=== PATIENT | male | born 1940 | race Caucasian/White ===

== ENCOUNTER 2019-12-08 14:27 | Inpatient (IN) | payer OTHER ==
[2019-12-08 14:56] LABS: Absolute Lymphocytes (CBC) 1.8 K/uL (0.7-4.9); Basophils % 0.8 % (0-1.3); Hematocrit 40.6 % (39.6-49.0); Lymphocytes % 26.2 % (15.3-44.8); MPV 7.9 fL (7.6-11.3); RBC Red Blood Cell Count 4.81 M/uL (4.33-5.43)
--- NOTE | 2019-12-08 15:00 | RAD REPORT ---
EXAM DESCRIPTION: CT - Ct Stroke Brain Wo Cont - 12/08/2019 2:48 pm CLINICAL HISTORY: SLURRED SPEECH Headache, drowsiness COMPARISON: No comparisons TECHNIQUE: All CT scans are performed using dose optimization technique as appropriate and may inclu de automated exposure control or mA/KV adjustment according to patient size. FINDINGS: No intracranial hemorrhage, hydrocephalus or extra-axial fluid collection.Area of diminish ed density is seen in the left posterior temporoparietal region suspicious for subacute infarct. Area of hyperdensity also seen left medial occipital lobe, having the appearance of gliosis from an old i nfarct. The paranasal sinuses and mastoids are clear. The calvarium is intact. Heavy vertebral atherosclerosi s. IMPRESSION: Area of diminished density is seen in the left posterior temporoparietal region suspicio us for subacute infarct. The findings were discussed with Dr. Mirza in the ER On 12/08/2019 at 2:55 p.m. by telephone.
[2019-12-08] MEDS ORDERED: NA CHLORIDE 0.9% 50 ML IV ONE (15:03)
[2019-12-08] MEDS ORDERED: NA CHLORIDE 0.9% 1,000 ML ONE (15:03)
[2019-12-08] MEDS ORDERED: FOLIC ACID 5 MG/ML VIAL ONE (15:03)
[2019-12-08 15:13] LABS: BUN Blood Urea Nitrogen 16 mg/dL (7-18); Bicarbonate 23 mmol/L (21-32); Glucose Level 178 mg/dL (74-106); Potassium 4.8 mmol/L (3.5-5.1); Sodium Level 138 mmol/L (136-145)
[2019-12-08] MEDS ORDERED: ASPIRIN 81 MG CHEWABLE TABLET ONE (15:13)
[2019-12-08 15:16] LABS: Protime INR 1.06
--- NOTE | 2019-12-08 15:16 | ER ---
Nurse's Notes [facility] Name: Omar Norris Age: 79 yrs Sex: Male : 1940 Arrival Date: 12/08/2019 Time: 14:[address] Private MD: Diagnosis: Aphasia following cerebral infarction-subacute;Type 1 diabetes mellitus;Occlusion and stenosis of carotid artery Presentation: 12/07 14:39 Chief complaint: Patient states: Aphasia began at 1300 today. Isn't making sense and ll1 disoriented. Had pacemaker placed 3 weeks ago. + confusion. + weakness since surgery. Coronavirus screen: Proceed with normal triage. Patient denies a cough. Patient denies shortness of breath or difficulty breathing. Patient denies measured and/or subjective temperature greater than 100.4F prior to today's visit. Patient denies travel on a cruise ship or to a country the [facility] currently lists as an affected area. Patient denies contact with known and/or suspected case of COVID-19. Ebola Screen: Patient denies travel to an Ebola-affected area in the 21 days before illness onset. An acute neurological deficit is present. The charge nurse has been notified. The patient has been moved to a treatment area. Initial Sepsis Screen: Does the patient meet any 2 criteria? No. Patient's initial sepsis screen is negative. Risk Assessment: Do you want to hurt yourself or someone else? Patient reports no desire to harm self or others. Onset of symptoms was December 07, 2019 at 23:00. 14:39 Method Of Arrival: Wheelchair ll1 14:39 Acuity: TANIA 2 ll1 14:55 Pre-hospital glucose is not applicable to this patient. Initial Sepsis Screen: Does the vc patient have a suspected source of infection? No. Patient's initial sepsis screen is negative. Triage Assessment: 14:55 The onset of the patients symptoms was at an unknown time. General: Appears in no vc apparent distress. slender, well groomed, Behavior is calm, cooperative, appropriate for age. Stroke Activation: Symptom onset < 3 hours Physician: Stroke Attending; Name: alexandra; Notified At: ; Arrived At: Physician: Chief Stroke Resident; Name: ; Notified At: ; Arrived At: Physician: Stroke Resident; Name: ; Notified At: ; Arrived At: Physician: ED Attending; Name: ; Notified At: ; Arrived At: Physician: ED Resident; Name: ; Notified At: ; Arrived At: Historical: - Allergies: 14:42 No Known Allergies; ll1 - PMHx: 14:42 Hypertension; Diabetes - IDDM; Pacemaker; ll1 - Immunization history:: Adult Immunizations up to date. - Social history:: Patient/guardian denies using street drugs, Smoking status: Patient denies any tobacco usage or history of. - Family history:: not pertinent. Screenin:55 Abuse screen: Denies threats or abuse. Nutritional screening: No deficits noted. vc Tuberculosis screening: No symptoms or risk factors identified. Fall Risk No fall in past 12 months (0 pts). Secondary diagnosis (15 points) dementia, CVA, IV access (20 points). Ambulatory Aid- None/Bed Rest/Nurse Assist (0 pts). Gait- Normal/Bed Rest/Wheelchair (0 pts) Mental Status- Overestimates/Forgets Limitations (15 pts.). Total Gupta Fall Scale indicates High Risk Score (45 or more points). Assessment: 14:55 Reassessment: Dr Mirza at the bedside. 14:55 VAN Scoring: Arm Drift: Minor drift Visual Disturbance: No visual disturbance noted. vc Aphasia: Expressive aphasia noted. Provider notified of +VAN scoring. Neglect: No neglect noted. Patient has been NPO before screening. The patient is alert, and able to follow commands. The patient does not exhibit slurred or garbled speech. The patient is exhibiting difficulty speaking. The patient does not exhibit difficulty understanding words. The patient is able to swallow own secretions with no drooling or need for suction. Patient tolerated one teaspoon of water. No drooling, immediate coughing, gurgling, or clearing of the throat was noted. The patient tolerated 90mL of water. No drooling, immediate coughing, gurgling, or clearing of the throat was noted. The patient passed the bedside swallow screening. Oral medications may be given as ordered. Contact Physician for further diet orders. Provider notified of bedside swallow screening results: Jose Carlos Mirza MD. T-PA (Activase) Screening: Indications: Treatment will start within 4.5 hours onset of symptoms: No. Contraindications: Patient reports onset of signs and symptoms of stroke greater than 6 hours ago: Yes. Reassessment: Patient able to follow one step directions. Unable to follow 2 or more step directions. Pain: Denies pain. Neuro: Level of Consciousness is awake, confused, Oriented to person, Policy Loan Calculator are equal bilaterally. 14:55 Reassessment: After coming back from CT and speaking with family it was found that in ss fact patient was last seen well at 11 pm yesterday evening. 14:55 General: Appears in no apparent distress. slender, well groomed, Behavior is calm, vc cooperative. Neuro: Moves all extremities. Gait is steady, Speech with expressive aphasia noted. Cardiovascular: Denies chest pain, Capillary refill < 3 seconds Patient's skin is warm and dry. Pulses are all present. Rhythm is regular. Respiratory: Airway is patent Respiratory effort is even, unlabored, Respiratory pattern is regular, symmetrical. GI: No signs and/or symptoms were reported involving the gastrointestinal system. : No signs and/or symptoms were reported regarding the genitourinary system. Derm: Skin is intact, is healthy with good turgor, Skin temperature is warm. Musculoskeletal: Circulation, motion, and sensation intact. Range of motion: intact in all extremities. 16:00 Reassessment: Patient appears in no apparent distress at this time. Patient and/or vc family updated on plan of care and expected duration. Pain level reassessed. Patient is alert, oriented x 3, equal unlabored respirations, skin warm/dry/pink. 17:00 Reassessment: Patient appears in no apparent distress at this time. Patient and/or vc family updated on plan of care and expected duration. Pain level reassessed. Patient is alert, oriented x 3, equal unlabored respirations, skin warm/dry/pink. 18:34 Reassessment: Patient appears in no apparent distress at this time. Patient and/or vc family updated on plan of care and expected duration. Pain level reassessed. Patient is alert, oriented x 3, equal unlabored respirations, skin warm/dry/pink. Patient denies pain at this time. 19:33 Reassessment: Patient appears in no apparent distress at this time. Patient and/or vc family updated on plan of care and expected duration. Pain level reassessed. Patient is alert, oriented x 3, equal unlabored respirations, skin warm/dry/pink. Patient denies pain at this time. Patient states symptoms have not improved. 19:34 Reassessment: Called 4th floor to give report, accepting nurse to call me back. vc Vital Signs: 14:39 BP 128 / 87; Pulse 78; Resp 17; Temp 97.7; Pulse Ox 98% ; Pain 0/10; ll1 15:00 BP 150 / 81; Pulse 71; Resp 12; Pulse Ox 97% on R/A; vc 17:00 BP 147 / 74; Pulse 67; Resp 18; Pulse Ox 98% on R/A; vc 18:00 BP 152 / 85; Pulse 70; Resp 15; Pulse Ox 97% on R/A; vc NIH Stroke Scale Scores: 14:55 NIHSS Score: 5 vc 15:38 NIHSS Score: 2 [facility] ED Course: 14:30 Patient arrived in ED. fj1 14:39 Jose Carlos Mirza MD is Attending Physician. tess 14:40 Initial lab(s) drawn, by me, sent to lab. Inserted saline lock: 20 gauge in right jp3 forearm, using aseptic technique. Blood collected. 14:41 Triage completed. ll1 14:42 Arm band placed on Patient placed in an exam room, on a stretcher, on pulse oximetry. ll1 14:48 CT Stroke Brain w/o Contrast In Process Unspecified. EDMS 14:55 Patient has correct armband on for positive identification. Bed in low position. Call vc light in reach. Side rails up X2. Adult w/ patient. library monitor on. Pulse ox on. NIBP on. Sitter at bedside. 15:09 Heather Quiles, RN is Primary Nurse. vc 15:14 Skip De La Paz DO is Hospitalizing Provider. tess 15:27 EKG done, by cable splicing technician. reviewed by Jose Carlos Mirza MD. at1 15:34 Stroke CXR 1 View In Process Unspecified. EDMS 15:38 CT Head Angio In Process Unspecified. EDMS 15:38 CT Neck Angio In Process Unspecified. EDMS 20:30 No provider procedures requiring assistance completed. Patient admitted, IV remains in vc place. Administered Medications: 15:09 Drug: NS 0.9% 1000 ml Route: IV; Rate: 1 bolus; Site: right antecubital; vc 15:09 Drug: foLIC Acid 1 mg Route: IVPB; Site: right antecubital; vc 15:54 Follow up: IV Status: Completed infusion; IV Intake: 50ml vc 15:09 Drug: Aspirin Chewable Tablet 324 mg Route: PO; vc 15:53 Not Given (Other Intervention Used): Zocor 40 mg PO once vc 15:54 Drug: Lipitor 20 mg Route: PO; vc Point of Care Testing: Blood Glucose: 14:40 Blood Glucose: 178 mg/dL; vc Ranges: Intake: 15:54 IV: 50ml; Total: 50ml. vc Outcome: 15:15 Decision to Hospitalize by Provider. tess 20:30 Admitted to Tele accompanied by tech, via stretcher, room 402. vc 20:30 Condition: good 20:30 Instructed on the need for admit. 20:34 Patient left the ED. NIH Stroke Scale - NIH Stroke Score Date: 12/08/2019 Time: 14:55 Total Score = 5 1a. Level of Consciousness (LOC) - 0(Alert) 1b. Level of Consciousness (LOC) (Year \T\ Age) - 1(One) 1c. LOC Commands (Open \T\ Closes Eyes/Wood Floor Layer) - 0(Both) 2. Best Gaze (Lateral Gaze Paresis) - 0(Normal) 3. Visual Field Loss - 0(No visual loss) 4. Facial Palsy - 0(Normal) 5a. Left Arm: Motor (10-second hold) - 0(No drift) 5b. Right Arm: Motor (10-second hold) - 0(No drift) 6a. Left Leg: Motor (5-second hold - always test supine) - 1(Drift) 6b. Right Leg: Motor (5-second hold - always test supine) - 1(Drift) 7. Limb Ataxia (finger/nose \T\ heel/marcano - test with eyes open) - 0(Absent) 8. Sensory Loss (pinprick arms/legs/face) - 0(Normal) 9. Best Language: Aphasia (description/naming/reading) - 1(Mild to moderate aphasia) 10. Dysarthria (speech clarity - read or repeat words) - 1(Mild to Moderate) 11. Extinction and Inattention (visual/tactile/auditory/spatial/personal) - 0(No abnormality) Initials: NIH Stroke Scale - NIH Stroke Score Date: 12/08/2019 Time: 15:38 Total Score = 2 1a. Level of Consciousness (LOC) - 0(Alert) 1b. Level of Consciousness (LOC) (Year \T\ Age) - 0(Both) 1c. LOC Commands (Open \T\ Closes Eyes/Wood Floor Layer) - 0(Both) 2. Best Gaze (Lateral Gaze Paresis) - 0(Normal) 3. Visual Field Loss - 0(No visual loss) 4. Facial Palsy - 0(Normal) 5a. Left Arm: Motor (10-second hold) - 0(No drift) 5b. Right Arm: Motor (10-second hold) - 0(No drift) 6a. Left Leg: Motor (5-second hold - always test supine) - 0(No drift) 6b. Right Leg: Motor (5-second hold - always test supine) - 0(No drift) 7. Limb Ataxia (finger/nose \T\ heel/marcano - test with eyes open) - 0(Absent) 8. Sensory Loss (pinprick arms/legs/face) - 0(Normal) 9. Best Language: Aphasia (description/naming/reading) - 1(Mild to moderate aphasia) 10. Dysarthria (speech clarity - read or repeat words) - 1(Mild to Moderate) 11. Extinction and Inattention (visual/tactile/auditory/spatial/personal) - 0(No abnormality) Initials: [facility] Addendum: 12/14/2019 16:10 Addendum: Other Pt ADMITTED, but patient's son notified by Dr. Mirza of positive COVID results. Some confusion was had by patient's family member as there were two test obtained. Clara Cresencio, Office Service Coordinator notified and stats she has spoke to family to answer any questions. Signatures: Dispatcher [employer] Rupal Moore RN RN sv Anderson, Corey, MD MD cha Smirch, Shelby, RN RN ss Gonzales, Amanda, software programmer EKG Tat1 Roe Espinal jp3 Heather Quiles RN RN vc James, Frank fj1 Alicia Morris RN RN ll1 Corrections: (The following items were deleted from the chart) 12/07 14:58 14:42 EKG completed in triage. Results shown to [facility]. [facility] 14:58 14:42 EKG completed in triage. Results shown to MD. [facility] 18:04 14:39 Onset of symptoms was December 08, 2019 [facility]
--- NOTE | 2019-12-08 15:16 | EDPHYS ---
Physician Documentation [facility] Name: Omar Norris Age: 79 yrs Sex: Male : 1940 Arrival Date: 12/08/2019 Time: 14:[address] Private MD: KYRA Physician Jose Carlos Mirza HPI: 12/07 15:06 This 79 yrs old Unknown Male presents to ER via Wheelchair with complaints of Slurred tess Speech, DISORIENTED. 15:06 The patient presents to the emergency department with weakness of the a speech or tess higher order brain function problem, aphasia. Onset: The symptoms/episode began/occurred today. Context: occurred at home. Associated signs and symptoms: Pertinent positives: This patient does not have any pertinent positives. Severity of symptoms: At their worst the symptoms were moderate in the emergency department the symptoms are unchanged. Patient's baseline: Neuro: alert and fully oriented, Motor: no deficits, Ambulation: walks without assistance, Speech: normal, The patient has a previous history of htn, recent pacemaker 3 weeks ago. Current symptoms: dysphasia. The patient has not experienced similar symptoms in the past. Historical: - Allergies: 14:42 No Known Allergies; ll1 - PMHx: 14:42 Hypertension; Diabetes - IDDM; Pacemaker; ll1 - Immunization history:: Adult Immunizations up to date. - Social history:: Patient/guardian denies using street drugs, Smoking status: Patient denies any tobacco usage or history of. - Family history:: not pertinent. ROS: 15:06 Constitutional: Negative for fever, chills, and weight loss, Eyes: Negative for injury, tess pain, redness, and discharge, ENT: Negative for injury, pain, and discharge, Neck: Negative for injury, pain, and swelling, Cardiovascular: Negative for chest pain, palpitations, and edema, Respiratory: Negative for shortness of breath, cough, wheezing, and pleuritic chest pain, Abdomen/GI: Negative for abdominal pain, nausea, vomiting, diarrhea, and constipation, Back: Negative for injury and pain, : Negative for injury, bleeding, discharge, and swelling, MS/Extremity: Negative for injury and deformity, Skin: Negative for injury, rash, and discoloration, Psych: Negative for depression, anxiety, suicide ideation, homicidal ideation, and hallucinations, Allergy/Immunology: Negative for hives, rash, and allergies, Endocrine: Negative for neck swelling, polydipsia, polyuria, polyphagia, and marked weight changes. 15:06 Neuro: Positive for speech changes. Exam: 15:06 Constitutional: This is a well developed, well nourished patient who is awake, alert, tess and in no acute distress. Head/Face: Normocephalic, atraumatic. Eyes: Pupils equal round and reactive to light, extra-ocular motions intact. Lids and lashes normal. Conjunctiva and sclera are non-icteric and not injected. Cornea within normal limits. Periorbital areas with no swelling, redness, or edema. ENT: Nares patent. No nasal discharge, no septal abnormalities noted. Tympanic membranes are normal and external auditory canals are clear. Oropharynx with no redness, swelling, or masses, exudates, or evidence of obstruction, uvula midline. Mucous membranes moist. Neck: Trachea midline, no thyromegaly or masses palpated, and no cervical lymphadenopathy. Supple, full range of motion without nuchal rigidity, or vertebral point tenderness. No Meningismus. Chest/axilla: Normal chest wall appearance and motion. Nontender with no deformity. No lesions are appreciated. Cardiovascular: Regular rate and rhythm with a normal S1 and S2. No gallops, murmurs, or rubs. Normal PMI, no JVD. No pulse deficits. Respiratory: Lungs have equal breath sounds bilaterally, clear to auscultation and percussion. No rales, rhonchi or wheezes noted. No increased work of breathing, no retractions or nasal flaring. Abdomen/GI: Soft, non-tender, with normal bowel sounds. No distension or tympany. No guarding or rebound. No evidence of tenderness throughout. Back: No spinal tenderness. No costovertebral tenderness. Full range of motion. Male : Normal genitalia with no discharge or lesions. Skin: Warm, dry with normal turgor. Normal color with no rashes, no lesions, and no evidence of cellulitis. MS/ Extremity: Pulses equal, no cyanosis. Neurovascular intact. Full, normal range of motion. Psych: Awake, alert, with orientation to person, place and time. Behavior, mood, and affect are within normal limits. 15:06 Neuro: Orientation: to person, place, Not oriented to time, situation, Mentation: slow to respond, Memory: unable to test, Cranial nerves: grossly normal, is grossly normal based on the patient's age, no acute changes, Cerebellar function: is grossly normal, is grossly normal based on the patient's age, no acute changes, Motor: moves all fours, strength is normal, strength is 5/5 in all extremities, Sensation: no acute changes, Gait: not tested. seizure activity, is not displayed by the patient. 15:38 Neck: ROM/movement: is normal, no acute changes, Meningeal signs: are not present, tess Kernig's sign is negative, Brudzinski's sign is negative. 15:38 Cardiovascular: JVD: is not appreciated. 15:38 ECG was reviewed by the Attending Physician. 15:38 Respiratory: Breath sounds: are clear throughout. 15:46 ECG was reviewed by the Attending Physician. [facility] Vital Signs: 14:39 BP 128 / 87; Pulse 78; Resp 17; Temp 97.7; Pulse Ox 98% ; Pain 0/10; ll1 15:00 BP 150 / 81; Pulse 71; Resp 12; Pulse Ox 97% on R/A; vc 17:00 BP 147 / 74; Pulse 67; Resp 18; Pulse Ox 98% on R/A; vc 18:00 BP 152 / 85; Pulse 70; Resp 15; Pulse Ox 97% on R/A; vc NIH Stroke Scale Scores: 14:55 NIHSS Score: 5 vc 15:38 NIHSS Score: 2 tess MDM: 14:[address] [facility] 15:12 Data reviewed: vital signs, nurses notes, lab test result(s), EKG, radiologic studies, [facility] CT scan, plain films. 15:12 Data interpreted: case monitor: rate is 78 beats/min, rhythm is regular, Pulse tess oximetry: on room air is 98 %. Test interpretation: by ED physician or midlevel provider: ECG, plain radiologic studies. Counseling: I had a detailed discussion with the patient and/or guardian regarding: the historical points, exam findings, and any diagnostic results supporting the discharge/admit diagnosis, lab results, radiology results, the need for further work-up and treatment in the hospital. Physician consultation: Lico Boudreaux MD and will see patient in the er or the room in house. later today. 15:15 ED course: dw dr boudreaux, ct shows sub acute cva, no blood thinners per family, [facility] aspirin , folic acid and neuro consult. 15:20 ED course: no tpa canadidate, 11pm last normal, drs. mckeon and kanika agree. [facility] 12/07 14:40 Order name: Basic Metabolic Panel; Complete Time: 15:17 em 12/07 14:40 Order name: CBC with Diff; Complete Time: 15:17 em 12/07 14:40 Order name: Protime (+inr); Complete Time: 15:32 em1 12/07 14:40 Order name: Ptt, Activated; Complete Time: 15:32 em 12/07 14:40 Order name: CT Stroke Brain w/o Contrast; Complete Time: 15:17 em 12/07 14:54 Order name: Glucose, Ancillary Testing; Complete Time: 15:17 EDFL 12/07 14:40 Order name: Stroke CXR 1 View; Complete Time: 16:50 [facility] 12/07 15:06 Order name: CT Head Angio; Complete Time: 16:50 [facility] 12/07 15:07 Order name: CT Neck Angio; Complete Time: 16:50 em 12/07 14:40 Order name: EKG; Complete Time: 14:40 em 12/07 14:40 Order name: Accucheck; Complete Time: 14:46 em12/07 14:40 Order name: Cardiac monitoring; Complete Time: 15:10 em12/07 14:40 Order name: EKG - Nurse/Tech; Complete Time: 14:46 em 12/07 14:40 Order name: IV Saline Lock; Complete Time: 14:46 12/07 14:40 Order name: Labs collected and sent; Complete Time: 14:46 em12/07 14:40 Order name: NPO; Complete Time: 14:46 em12/07 14:40 Order name: O2 Per Protocol; Complete Time: 14:46 em12/07 14:40 Order name: O2 Sat Monitoring; Complete Time: 14:46 em12/07 14:40 Order name: Stroke Swallow Screen; Complete Time: 15:54 em1 EC:46 Rate is 69 beats/min. Rhythm is regular. QRS [place] is Normal. DC interval is normal. QRS tess interval is normal. QT interval is normal. No Q waves. T waves are Normal. No ST changes noted. Clinical impression: Abnormal EKG without significant change and No evidence of ischemia. Interpreted by me. Reviewed by me. Administered Medications: 15:09 Drug: NS 0.9% 1000 ml Route: IV; Rate: 1 bolus; Site: right antecubital; vc 15:09 Drug: foLIC Acid 1 mg Route: IVPB; Site: right antecubital; vc 15:54 Follow up: IV Status: Completed infusion; IV Intake: 50ml vc 15:09 Drug: Aspirin Chewable Tablet 324 mg Route: PO; vc 15:53 Not Given (Other Intervention Used): Zocor 40 mg PO once vc 15:54 Drug: Lipitor 20 mg Route: PO; vc Point of Care Testing: Blood Glucose: 14:40 Blood Glucose: 178 mg/dL; vc Ranges: Critical Glucose Levels:Adult <50 mg/dl or >400 mg/dl <40 mg/dl or >180 mg/dl Disposition: 12/08/19 15:15 Hospitalization ordered by Skip Mckeon for Inpatient Admission. Preliminary diagnosis are Aphasia following cerebral infarction - subacute, Type 1 diabetes mellitus, Occlusion and stenosis of carotid artery. - Bed requested for Telemetry/MedSurg (Inpatient). - Status is Inpatient Admission. vc - Condition is Fair. - Problem is new. - Symptoms have improved. Critical care time excluding procedures: 15:20 Critical care time: Bedside Care: 25 minutes, Consultation: 10 minutes, Family tess Intervention: 10 minutes. Total time: 45 minutes NIH Stroke Scale - NIH Stroke Score Date: 12/08/2019 Time: 14:55 Total Score = 5 1a. Level of Consciousness (LOC) - 0(Alert) 1b. Level of Consciousness (LOC) (Year \T\ Age) - 1(One) 1c. LOC Commands (Open \T\ Closes Eyes/Clinical Nutritionist) - 0(Both) 2. Best Gaze (Lateral Gaze Paresis) - 0(Normal) 3. Visual Field Loss - 0(No visual loss) 4. Facial Palsy - 0(Normal) 5a. Left Arm: Motor (10-second hold) - 0(No drift) 5b. Right Arm: Motor (10-second hold) - 0(No drift) 6a. Left Leg: Motor (5-second hold - always test supine) - 1(Drift) 6b. Right Leg: Motor (5-second hold - always test supine) - 1(Drift) 7. Limb Ataxia (finger/nose \T\ heel/marcano - test with eyes open) - 0(Absent) 8. Sensory Loss (pinprick arms/legs/face) - 0(Normal) 9. Best Language: Aphasia (description/naming/reading) - 1(Mild to moderate aphasia) 10. Dysarthria (speech clarity - read or repeat words) - 1(Mild to Moderate) 11. Extinction and Inattention (visual/tactile/auditory/spatial/personal) - 0(No abnormality) Initials: NIH Stroke Scale - NIH Stroke Score Date: 12/08/2019 Time: 15:38 Total Score = 2 1a. Level of Consciousness (LOC) - 0(Alert) 1b. Level of Consciousness (LOC) (Year \T\ Age) - 0(Both) 1c. LOC Commands (Open \T\ Closes Eyes/Clinical Nutritionist) - 0(Both) 2. Best Gaze (Lateral Gaze Paresis) - 0(Normal) 3. Visual Field Loss - 0(No visual loss) 4. Facial Palsy - 0(Normal) 5a. Left Arm: Motor (10-second hold) - 0(No drift) 5b. Right Arm: Motor (10-second hold) - 0(No drift) 6a. Left Leg: Motor (5-second hold - always test supine) - 0(No drift) 6b. Right Leg: Motor (5-second hold - always test supine) - 0(No drift) 7. Limb Ataxia (finger/nose \T\ heel/marcano - test with eyes open) - 0(Absent) 8. Sensory Loss (pinprick arms/legs/face) - 0(Normal) 9. Best Language: Aphasia (description/naming/reading) - 1(Mild to moderate aphasia) 10. Dysarthria (speech clarity - read or repeat words) - 1(Mild to Moderate) 11. Extinction and Inattention (visual/tactile/auditory/spatial/personal) - 0(No abnormality) Initials: tess Signatures: Dispatcher [employer] EDMone Curry RN RN kl Anderson, Corey, MD MD cha Martinez, Eric em1 Harish Carmona, COURSE INSTRUCTOR-C COURSE INSTRUCTOR-Cla1 Calcote, Heather, RN RN vc Arturo, Lynsay, RN RN ll1 Corrections: (The following items were deleted from the chart) 15:15 15:15 Hospitalization Ordered by Skip Brain WARD for Inpatient Admission. [facility] Preliminary diagnosis is Aphasia following cerebral infarction - subacute. Bed requested for Telemetry/MedSurg (Inpatient). Status is Inpatient Admission. Condition is Fair. Problem is new. Symptoms have improved. [facility] 15:48 15:38 Rate is 49 beats/min. Rhythm is regular. QRS [place] is Normal. DC interval tess is normal. QRS interval is normal. QT interval is normal. No Q waves. T waves are Normal. No ST changes noted. Clinical impression: Sinus bradycardia and No evidence of ischemia. Interpreted by me. Reviewed by me. [facility] 16:54 15:15 12/08/2019 15:15 [facility] Admission. Preliminary diagnosis is Aphasia following cerebral infarction - subacute; Type 1 diabetes mellitus. Bed requested for Telemetry/MedSurg (Inpatient). Status is Inpatient Admission. Condition is Fair. Problem is new. Symptoms have improved. [facility] 18:08 16:54 12/08/2019 15:15 [facility]. Preliminary diagnosis is Aphasia following cerebral infarction - subacute; Type 1 diabetes mellitus; Occlusion and stenosis of carotid artery. Bed requested for Telemetry/MedSurg (Inpatient). Status is Inpatient Admission. Condition is Fair. Problem is new. Symptoms have improved. [facility] 20:34 18:08 12/08/2019 15:15 [facility]. Preliminary diagnosis is Aphasia following cerebral infarction - subacute; Type 1 diabetes mellitus; Occlusion and stenosis of carotid artery. Bed requested for Telemetry/MedSurg (Inpatient). Status is Inpatient Admission. Condition is Fair. Problem is new. Symptoms have improved.
--- NOTE | 2019-12-08 15:42 | RAD REPORT ---
EXAM DESCRIPTION: RAD - Chest Single View - 12/08/2019 3:34 pm CLINICAL HISTORY: stroke Chest pain. COMPARISON: No comparisons FINDINGS: Portable technique limits examination quality. The lungs are grossly clear. The heart is normal in size. Postsurgical changes of a CABG arm present with dual lead pacer/defibrillator device present. IMPRESSION: No acute intrathoracic process suspected.
--- NOTE | 2019-12-08 15:45 | RAD REPORT ---
EXAM DESCRIPTION: CT - Head angio - 12/08/2019 3:37 pm CLINICAL HISTORY: cva;Aphasia Headache, drowsiness, CVA symptomology COMPARISON: Ct Stroke Brain Wo Cont dated 12/08/2019 TECHNIQUE: CT angiography of the head was performed with MIPs. All CT scans are performed using dose optimization technique as appropriate and may include automated exposure control or mA/KV adjustment according to patient size. FINDINGS: No evidence of aneurysm is detected. No flow-limiting stenosis or vascular malformation id entified. Antegrade flow is seen in the vertebral arteries. Heavy vertebral artery atherosclerosis bilaterally. The visualized dural venous sinuses are patent. IMPRESSION: No significant flow abnormality is detected.
--- NOTE | 2019-12-08 15:47 | RAD REPORT ---
EXAM DESCRIPTION: CT - Neck Angio - 12/08/2019 3:38 pm CLINICAL HISTORY: slurred speech Headache, drowsiness, CVA. COMPARISON: No comparisons TECHNIQUE: CT angiography of the neck vessels was performed with MIPs. All CT scans are performed using dose optimization technique as appropriate and may include automated exposure control or mA/KV adjustment according to patient size. FINDINGS: A left aortic arch is identified with normal three vessel configuration of the great vesse ls. No significant flow abnormality is seen of the common carotid bilaterally. Heavy atheromatous plaquing is seen involving the right carotid bulb resulting in stenosis based on N ASCET criteria of 50-60%. Mild atheromatous plaquing is seen left carotid bulb without significant st enosis. Normal flow is seen within both vertebral arteries. Heavy atherosclerosis of both vertebral arteries. IMPRESSION: Heavy atheromatous plaquing involving the right carotid bulb resulting in stenosis estim ated at 50-60% based on NASCET criteria.
[2019-12-08] MEDS ORDERED: ATORVASTATIN 20 MG TAB ONE (15:54)
[2019-12-08] MEDS ORDERED: ATORVASTATIN 20 MG TAB PO ONE (16:00)
--- NOTE | 2019-12-08 18:14 | P.HP ---
Certification for Inpatient Patient admitted to: Inpatient With expected LOS: >2 Midnights Patient will require the following post-hospital care: Rehabilitation Practitioner: I am a practitioner with admitting privileges, knowledge of patient current condition, hospital course, and medical plan of care. Services: Services provided to patient in accordance with Admission requirements found in Title 42 Section 412.3 of the Code of Federal Regulations <YusufnelaHarish - Last Filed: 12/08/19 18:04> Patient History Date of Service: 12/08/19 Primary Care Provider: THEODORA Reason for admission: CVA History of Present Illness: 79-year-old male, last known well 2300 on 12/07/2019 was reported to be having some expressive aphasia at home by family. His right to the emergency department today around 1440 for evaluation. Patient was worked up in emergency department found to have a subacute left posterior temporoparietal infarct. Patient was expressive aphasia. ED provider wishes to admit for further evaluation and management. When I saw the patient in the emergency department he was awake, alert, son is at bedside. Patient with significant expressive aphasia, moves all 4 extremities, good strength. The patient did pass a swallow screen in the emergency department. Will be admitted for further evaluation management. - Past Medical/Surgical History Has patient received pneumonia vaccine in the past: No Diabetic: Yes -: Hypertension -: Diabetes mellitus type 2-insulin dependent -: Pacemaker insertion- October 2019 Psychosocial/ Personal History: Patient currently lives with his son in their home. - Family History Family History: Reviewed- Non-Contributory - Social History Smoking Status: Former smoker Alcohol use: No CD- Drugs: No Caffeine use: Yes Place of Residence: Home <Harish Carmona - Last Filed: 12/08/19 18:04> Date of Service: 12/08/19 Home medications list reviewed: Yes <Skip De La Paz - Last Filed: 12/08/19 20:44> Review of Systems 10-point ROS is otherwise unremarkable Neurological: Change in Speech, Confusion <Harish Carmona - Last Filed: 12/08/19 18:04> Physical Examination - Physical Exam General: Alert, In no apparent distress, Oriented x3 HEENT: Atraumatic, Normocephalic Neck: Supple Respiratory: Clear to auscultation bilaterally, Normal air movement Cardiovascular: No edema, Regular rate/rhythm, Normal S1 S2 Capillary refill: <2 Seconds Gastrointestinal: Normal bowel sounds, Soft and benign Musculoskeletal: No contractures, No erythema, No tenderness Integumentary: No significant lesion, No tenderness/swelling, No erythema Neurological: Normal strength at 5/5 x4 extr, Normal tone, Sensation intact, Other (Patient with expressive aphasia), Abnormal speech - Studies Laboratory Data (last 24 hrs) 12/08/19 14:40: PT 12.5, INR 1.06, APTT 29.9 12/08/19 14:40: WBC 6.7, Hgb 13.5 L, Hct 40.6, Plt Count 293 12/08/19 14:40: Sodium 138, Potassium 4.8, BUN 16, Creatinine 0.81, Glucose 178 H <Harish Carmona - Last Filed: 12/08/19 18:04> - Studies Laboratory Data (last 24 hrs) 12/08/19 14:40: PT 12.5, INR 1.06, APTT 29.9 12/08/19 14:40: WBC 6.7, Hgb 13.5 L, Hct 40.6, Plt Count 293 12/08/19 14:40: Sodium 138, Potassium 4.8, BUN 16, Creatinine 0.81, Glucose 178 H <Skip De La Paz - Last Filed: 12/08/19 20:44> Assessment and Plan - Plan Assessment 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 Have ordered echocardiogram, ultrasound of the carotids. Neurology has been consulted. Speech and physical therapy consults in place. Anticipate clinical improvement next 48-72 hr, patient may benefit from rehabilitation prior to discharge. Appreciate further input from neurology. Diabetes mellitus type 2-insulin dependent: A.c. HS Accu-Cheks therapy in place. Will check A1c with morning labs. Hypertension: Obtain and continue patient's home medications. Discharge Plan: Other (Rehab) Plan to discharge in: 48 Hours - Advance Directives Does patient have a Living Will: No Does patient have a Durable POA for Healthcare: No - Code Status/Comfort Care Code Status Assessed: Yes (Patient is full code) Critical Care: No Time Spent Managing Pts Care (In Minutes): 55 <Harish Carmona - Last Filed: 12/08/19 18:04> - Plan Agree with FINAL TESTER. Discussed evaluation, assessment and plan of care for the patient with FINAL TESTER. Will start ASA, Plavix, folic acid and statin. Will start DVT prophylaxis as well. Will discuss with Dr. Chavis tomorrow. May need Rehab at discharge. Expressive aphasia secondary to Subacute Left posterior temporoparietal CVA DM Type 2 insulin dependent HTN Pacemaker Will reassess in the am. <Skip De La Paz - Last Filed: 12/08/19 20:44>
[2019-12-08] MEDS ORDERED: ONDANSETRON 4 MG/2 ML VIAL IV PRN (20:47)
[2019-12-08] MEDS ORDERED: INSULIN -REGULAR HUMAN 50 UNIT/0.5 ML ML SQ SCH (20:47)
[2019-12-08] MEDS ORDERED: ACETAMINOPHEN 500 MG TAB PO PRN (20:47)
[2019-12-08] MEDS: NA CHLORIDE 0.9% 1,000 ML IV SCH (22:50)
[2019-12-08] MEDS: ATORVASTATIN 20 MG TAB PO SCH (22:50)
[2019-12-09] MEDS ORDERED: GLUCAGON 1 MG/VIAL IM PRN (00:08)
[2019-12-09] MEDS ORDERED: D50W 25 GM/50 ML SYRINGE/VIAL IV PRN (00:08)
[2019-12-09 00:59] VITALS: BMI 24.0
[2019-12-09] MEDS: MELATONIN 5 MG TABLET PO SCH ×2 (01:34→20:39)
[2019-12-09 04:48] LABS: Absolute Lymphocytes (CBC) 1.6 K/uL (0.7-4.9); Basophils % 0.8 % (0-1.3); Hematocrit 34.6 % (39.6-49.0); Lymphocytes % 32.2 % (15.3-44.8); MPV 7.7 fL (7.6-11.3); RBC Red Blood Cell Count 4.14 M/uL (4.33-5.43)
[2019-12-09 04:53] LABS: Potassium 4.1 mmol/L (3.5-5.1); T4,Total 8.2 ug/dL (4.5-12.1)
[2019-12-09 04:57] LABS: Thyroid Stimulating Hormone 4.23 uIU/mL (0.360-3.740)
[2019-12-09] MEDS: INSULIN -REGULAR HUMAN 50 UNIT/0.5 ML ML SQ SCH ×4 (07:30→20:40)
[2019-12-09] MEDS: ASPIRIN EC 81 MG TAB PO SCH (08:33)
[2019-12-09] MEDS: FOLIC ACID 1 MG TABLET PO SCH (08:33)
[2019-12-09] MEDS: CLOPIDOGREL 75 MG TABLET PO SCH (08:33)
[2019-12-09] MEDS: NA CHLORIDE 0.9% 1,000 ML IV SCH (10:27)
--- NOTE | 2019-12-09 12:11 | EKG ---
Test Date: 2019-12-08 Test Time: 15:03:15 Glass Curvature Gauger: MINERVA MEASUREMENT RESULTS: Intervals: Rate: 69 CA: 150 QRSD: 86 QT: 356 QTc: 381 [place]: P: -4 CA: 150 QRS: 60 T: 67 INTERPRETIVE STATEMENTS: Electronic atrial pacemaker Possible Anterior infarct, age undetermined Abnormal ECG No previous ECG available for comparison Electronically Signed On 12-09-19 12:09:32 CDT by Reinier Harper
--- NOTE | 2019-12-09 15:48 | P.PN ---
Subjective Date of Service: 12/09/19 Primary Care Provider: THEODORA Chief Complaint: CVA Subjective: No new changes, Tolerating diet (Continues with expressive aphasia.), Doing well Review of Systems General: Unremarkable Eyes: Unremarkable ENT: Other (Has difficulty hearing, uses hearing aid), Unremarkable Respiratory: Unremarkable Cardiovascular: Unremarkable Gastrointestinal: Unremarkable Musculoskeletal: Unremarkable Integumentary: Unremarkable Neurological: Change in Speech (Continues with expressive aphasia) Physical Examination - Vital Signs Temperature: 97.8 F Blood Pressure: 125/72 Pulse: 76 Respirations: 18 Pulse Ox (%): 99 - Physical Exam General: Alert, In no apparent distress, Oriented x3 HEENT: Atraumatic, Normocephalic, PERRLA, Other (Difficulty hearing, uses hearing aids.) Neck: Supple, Other (Trachea midline) Respiratory: Clear to auscultation bilaterally, Normal air movement Cardiovascular: No edema, Normal pulses, Regular rate/rhythm, Normal S1 S2 Capillary refill: <2 Seconds Gastrointestinal: Normal bowel sounds, Soft and benign, Non-distended Musculoskeletal: No clubbing, No swelling, No contractures, No erythema Integumentary: No rashes, No breakdown, No significant lesion Neurological: Normal gait, Normal strength at 5/5 x4 extr, Normal tone, Abnormal speech (Expressive aphasia) Assessment And Plan - Plan Assessment Subacute left posterior temporoparietal infarct with noticeable expressive aphasia: Diabetes mellitus type 2-insulin dependent: Hypertension: Plan Subacute left posterior temporoparietal infarct with no residual expressive aphasia: Continue aspirin, Plavix, folic acid. Echocardiogram ordered with results pending, MRA of the neck shows bilateral plaque with estimated stenosis of 50-60%. MRA of the head shows no acute abnormalities. Neurology has been consulted. Patient to have reimaging CT scan of the head this afternoon at 3:00 p.m.. Patient has pacemaker in place and cannot tolerate MRI of the brain. Patient continues with expressive aphasia. Speech and physical therapy consults in place. Patient may have some clinical improvement next 48-72 hr and may benefit from rehabilitation prior to discharge. Appreciate further input from neurology. Diabetes mellitus type 2-insulin dependent: A.c. HS Accu-Cheks therapy in place. Will check A1c with morning labs. Hypertension: Blood pressures remained stable. Latest reading of 125/75. So far is not required blood pressure medication. Continue patient's home medications once verified. Discharge Plan: Other (Rehab) Plan to discharge in: 48 Hours Discharge Plan: Correction Plan to discharge in: 48 Hours - Code Status/Comfort Care Code Status Assessed: Yes Time Spent Managing PTS Care (In Minutes): 45
--- NOTE | 2019-12-09 16:15 | RAD REPORT ---
EXAM DESCRIPTION: CT - Head Brain Wo Cont - 12/09/2019 4:03 pm CLINICAL HISTORY: cva COMPARISON: December 08, 2019 TECHNIQUE: Computed axial tomography of the head was obtained. IV contrast was not requested. All CT scans are performed using dose optimization technique as appropriate and may include automated exposure control or mA/KV adjustment according to patient size. FINDINGS: An intracranial bleed is not seen . The ventricles are normal in caliber. No extra-axial fluid collection is noted. Moderate low-density areas within the left occipital, left temporal left parietal lobes have become m ore well-defined since the prior exam. Fluid within the sinuses/ mastoids is not seen. IMPRESSION: Moderate relatively acute infarction involving left occipital, left temporal and left pa rietal lobes
--- NOTE | 2019-12-09 16:53 | RAD REPORT ---
EXAM DESCRIPTION: USCarotid Artery Bilateral12/09/2019 4:30 pm CLINICAL HISTORY: cva COMPARISON: None FINDINGS: The velocity of the right internal carotid artery equals 93 cm/sec. The right ICA/CCA rati o 1. The velocity of the left internal carotid artery equals 72 cm/sec. The left ICA/CCA ratio .9 Mild to moderate calcified plaque right carotid bulb. Mild plaque left internal carotid artery The vertebral arteries demonstrate antegrade flow IMPRESSION: Mild tomato plaque within the right carotid bulb without evidence of a hemodynamically s ignificant stenosis NASCET criteria used. Mild 0-49% stenosis Moderate 50-69% stenosis Severe 70-99% stenosis
--- NOTE | 2019-12-09 17:05 | CON ---
Reason For Consultation: Consultation called because os stroke. History Of Present Illness: Mr. Norris is a 79-year-old right-handed patient with hypertensi on, diabetes mellitus, and a recently inserted cardiac pacemaker in October of this year, who comes in w ith expressive aphasia. He was last known to be well around 2300 hours on 12/07/2019, he then develo ped difficulty communicating that is both comprehension and expression. At [facility], he h ad a brain CT scan done at on 12/08/2019 at 2:48 p.m. and it identified an area of diminished density in the left posterior temporoparietal region, suspicion of a subacute infarct. Given his recent pac emaker placement, the patient was not a candidate for MRI in this facility. He has CT angiogram of t he head revealing no significant flow abnormalities, however, CT angiogram of the neck identified hea vy atheromatous thrombus plaque in the right carotid bulb resulting in stenosis estimated at 56% base d on NASCET criteria. There was no significant left-sided carotid stenosis and note, this is contral ateral to where the patient's deficit is in terms of the blockage and the carotid versus the brain CT findings. His electrocardiogram showed an electronic paced rhythm with possible anterior infarct, a ge undetermined, and a chest x-ray showed no acute intrathoracic abnormalities. Complete blood count with differential was essentially normal. Coagulation panel was normal and chemistries essentially unremarkable. Blood glucose ranged from 128 to 228. Calcium initially was normal at 8.9, after hydr ation low at 8.4. LDL cholesterol 103, HDL cholesterol 53, cholesterol to HDL ratio of 3.3. TSH sli ghtly elevated at 4.23. Free T4 and thyroxine T4 both normal. Past Medical History: As indicated. Social History: No alcohol, tobacco, or IV drug use. Did smoke in the past. He lives with his son. Family History: Noncontributory. Review of Systems: Aside from mentioned above, which included difficulty with communication, disorientation, problems wi th expression and comprehension, he had no recent fevers, chills, nausea, vomiting, myalgias, arthral gias, headache, weight change, psychiatric complaints, gastrointestinal, genitourinary, dermatologica l or respiratory issues. Physical Examination: Vital Signs: Blood pressure 110/76, pulse 77, respiratory rate 16, temperature 98.3, oxygen saturati on 97% on room air. Weight 149 pounds, height 5 feet 6 inches, BMI 24. General: Mr. Norris is sitting in his room, eating lunch. He is in no acute distress. HEENT: He is normocephalic, atraumatic. Sclerae anicteric. Oropharynx is moist and pink. Neck: Supple. Chest: Clear. Heart: Regular. Extremities: Show no edema, cyanosis, or clubbing. Neurological: He is alert and oriented to situation, place, and person. He is hard of hearing. He does follow commands appropriately and that is finding of his cranial nerve. Aside from that, crania l nerves are intact. His ability to repeat is slightly impaired. He had difficulty repeating the ph rase no, ifs, ands, or buts and saying [employer], however, his articulation was normal i n terms of the lingual, labial and guttural sounds. Otherwise, cranial nerves, again poor hearing bi laterally. Does have hearing aids in the right ear. Tongue and palate are midline and facial sensat ion intact bilaterally. His strength is intact in upper and lower extremities at 5/5. Coordination intact in upper and lower extremities. Sensation, stocking-glove loss to light touch and temperature . Reflexes, depressed, 1 to trace in upper and lower extremities and symmetric. Gait, good stance a nd stride gait. Assessment: Mr. Norris is a 79-year-old patient with a subacute stroke per CT scan in the left posteri or parietal-temporal junction which has produced some perhaps receptive and less so expressive aphasi a. He does not have motor or sensory deficits, coordination deficits. He does have stroke risk fact ors including hypertension and he does have a history of tobacco use and a history of pulmonary embol ism. He has some mild hypercalcemia. Plan: 1.Aspirin, Plavix and folic acid as indicated. Continue DVT prophylaxis while in hospital. 2.Lipitor 40 mg at bedtime and melatonin as needed at night for sleep. 3.Please note, his NIH Stroke Scale is 2. 4.After discharge, he should follow up in Dr. Chavis's office 1 month later. LUZ MARINA/DARIAN Voice ID: [id number] Report ID: [id number]
[2019-12-09] MEDS: ATORVASTATIN 20 MG TAB PO SCH (20:39)
[2019-12-10] MEDS: NA CHLORIDE 0.9% 1,000 ML IV SCH (00:24)
[2019-12-10 04:18] LABS: Absolute Lymphocytes (CBC) 1.8 K/uL (0.7-4.9); Hematocrit 34.7 % (39.6-49.0); Lymphocytes % 31.5 % (15.3-44.8); MPV 7.9 fL (7.6-11.3); RBC Red Blood Cell Count 4.13 M/uL (4.33-5.43)
[2019-12-10 04:37] LABS: Potassium 4.2 mmol/L (3.5-5.1)
[2019-12-10] MEDS: INSULIN -REGULAR HUMAN 50 UNIT/0.5 ML ML SQ SCH ×4 (07:30→20:51)
[2019-12-10] MEDS: ASPIRIN EC 81 MG TAB PO SCH (08:52)
[2019-12-10] MEDS: FOLIC ACID 1 MG TABLET PO SCH (08:53)
[2019-12-10] MEDS: CLOPIDOGREL 75 MG TABLET PO SCH (08:53)
--- NOTE | 2019-12-10 11:55 | P.PN ---
Subjective Date of Service: 12/10/19 Primary Care Provider: THEODORA Chief Complaint: CVA Subjective: No new changes, Doing well <Trace Nielsen - Last Filed: 12/10/19 12:07> Date of Service: 12/10/19 <DarshanSkip avalos - Last Filed: 12/10/19 14:48> Review of Systems General: Unremarkable Eyes: Unremarkable ENT: Unremarkable Respiratory: Unremarkable Cardiovascular: Unremarkable Gastrointestinal: Unremarkable Genitourinary: Unremarkable Musculoskeletal: Unremarkable Integumentary: Unremarkable Neurological: As per HPI <Trace Nielsen - Last Filed: 12/10/19 12:07> Physical Examination - Vital Signs Temperature: 98.1 F Blood Pressure: 146/87 Pulse: 70 Respirations: 16 Pulse Ox (%): 98 - Physical Exam General: Alert, In no apparent distress, Oriented x3 HEENT: Atraumatic, Normocephalic Neck: Supple, No Thyromegaly Respiratory: Clear to auscultation bilaterally, Normal air movement Cardiovascular: No edema, Normal pulses, Regular rate/rhythm Capillary refill: <2 Seconds Gastrointestinal: Normal bowel sounds, Soft and benign, Non-distended Musculoskeletal: No clubbing, No swelling, No contractures Integumentary: No rashes, No breakdown, No significant lesion, No tenderness/swelling Neurological: Normal gait, Normal strength at 5/5 x4 extr, Normal tone, Abnormal speech (Expressive aphasia) <Trace Nielsen - Last Filed: 12/10/19 12:07> Assessment And Plan - Plan Assessment 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 Continue aspirin, Plavix, folic acid. Echocardiogram ordered with results pending, MRA of the neck shows bilateral plaque with estimated stenosis of 50-60%. MRA of the head shows no acute abnormalities. Carotid Doppler shows [id number] plaquing on the right carotid bulb and mild plaque on the left internal carotid artery. Neurology has been consulted. Patient reimaging CT scan of the head shows Moderate relatively acute infarction involving left occipital, left temporal and left parietal lobes . Patient has pacemaker in place and cannot tolerate MRI of the brain. Patient continues with expressive aphasia. Speech and physical therapy consults in place. Patient may have some clinical improvement next 48-72 hr and may benefit from rehabilitation prior to discharge. Appreciate further input from neurology. Diabetes mellitus type 2-insulin dependent: Mitul.cAntoinette OSULLIVAN Accu-Cheks therapy in place. Hemoglobin A1c of 8.9. Hypertension: Blood pressures remained stable. Latest reading of 125/75. So far is not required blood pressure medication. Continue patient's home medications once verified. Discharge Plan: Other (Rehab) Plan to discharge in: 48 Hours. logistic manager working on placement to snf. Discharge Plan: [facility] Plan to discharge in: 48 Hours - Code Status/Comfort Care Code Status Assessed: Yes Time Spent Managing PTS Care (In Minutes): 45 <Trace Nielsen - Last Filed: 12/10/19 12:07> - Plan Case discussed at length with PA. Agree with evaluation, assessment and plan of care. Continued current medication. Social work working to place patient at skilled facility then transition to long-term care. Continue OT, PT and ST. <Skip De La Paz - Last Filed: 12/10/19 14:48>
[2019-12-10] MEDS: HALOPERIDOL LACT 5 MG/ML INJ IV PRN ×2 (13:58→20:27)
[2019-12-10] MEDS: ATORVASTATIN 20 MG TAB PO SCH (20:27)
[2019-12-10] MEDS: MELATONIN 5 MG TABLET PO SCH (20:28)
[2019-12-11 05:25] LABS: Absolute Lymphocytes (CBC) 1.9 K/uL (0.7-4.9); Basophils % 1.1 % (0-1.3); Hematocrit 37.2 % (39.6-49.0); Lymphocytes % 29.6 % (15.3-44.8); MPV 8.1 fL (7.6-11.3); RBC Red Blood Cell Count 4.42 M/uL (4.33-5.43)
[2019-12-11 05:37] LABS: BUN Blood Urea Nitrogen 12 mg/dL (7-18); Bicarbonate 23 mmol/L (21-32); Glucose Level 154 mg/dL (74-106); Magnesium 1.7 mg/dL (1.8-2.4); Potassium 4.2 mmol/L (3.5-5.1); Sodium Level 141 mmol/L (136-145)
[2019-12-11] MEDS ORDERED: MAGNESIUM SULFATE 1 gm IVPB 1 GM/100 ML BAG IV ONE (07:15)
[2019-12-11] MEDS: INSULIN -REGULAR HUMAN 50 UNIT/0.5 ML ML SQ SCH ×4 (07:30→20:10)
--- NOTE | 2019-12-11 08:42 | ECHO ---
HEIGHT: 5 ft 6 in WEIGHT: 149 lb 0 oz DATE OF STUDY: 12/10/[address]: Harish Carmona NP 2-DIMENSIONAL: YES M.MODE: YES DOPPLER: YES COLOR FLOW: YES TDS: YES PORTABLE: NO DEFINITY: NO BUBBLE STUDY: NO DIAGNOSIS: STROKE CARDIAC HISTORY: CATHERIZATION: YES SURGERY: YES PROSTHETIC VALVE: NO PACEMAKER: YES MEASUREMENTS (cm) DIASTOLIC (NORMALS) SYSTOLIC (NORMALS) IVSd 0.9 (0.6-1.2) LA Diam 3.4 (1.9-4.0) LVEF 42% LVIDd 5.4 (3.5-5.7) LVIDs 4.3 (2.0-3.5) %FS 21% LVPWd 1.0 (0.6-1.2) Ao Diam 2.9 (2.0-3.7) 2 DIMENSIONAL ASSESSMENT: RIGHT ATRIUM: NORMAL LEFT ATRIUM: NORMAL RIGHT VENTRICLE: NORMAL LEFT VENTRICLE: NORMAL TRICUSPID VALVE: NORMAL MITRAL VALVE: MITRAL ANNULAR CALCIFICATION PULMONIC VALVE: NORMAL AORTIC VALVE: NORMAL PERICARDIAL EFFUSION: NONE AORTIC ROOT: NORMAL LEFT VENTRICULAR WALL MOTION: MILD GLOBAL HYPOKINESIS. DOPPLER/COLOR FLOW: NORMAL COMMENTS: MILD GLOBAL HYPOKINESIS. LEFT VENTRICULAR EJECTION FRACTION 40-45%. MITRAL ANNULAR CALCIFICATION. NO EFFUSION. TECHNOLOGIST: Alfredo CHÁVEZ
[2019-12-11] MEDS: FOLIC ACID 1 MG TABLET PO SCH (09:08)
[2019-12-11] MEDS: ASPIRIN EC 81 MG TAB PO SCH (09:09)
[2019-12-11] MEDS: CITALOPRAM 10 MG TABLET PO SCH (09:09)
[2019-12-11] MEDS: FINASTERIDE 5 MG TAB PO SCH (09:09)
[2019-12-11] MEDS: CLOPIDOGREL 75 MG TABLET PO SCH (09:09)
[2019-12-11] MEDS: lisinopriL 5 MG TAB PO SCH (09:09)
--- NOTE | 2019-12-11 15:29 | P.PN ---
Subjective Date of Service: 12/11/19 Primary Care Provider: THEODORA Chief Complaint: CVA Subjective: Doing well Physical Examination - Vital Signs Temperature: 98.2 F Blood Pressure: 157/81 Pulse: 73 Respirations: 18 Pulse Ox (%): 97 - Physical Exam General: Alert, In no apparent distress, Cooperative HEENT: Atraumatic Neck: Supple Respiratory: Clear to auscultation bilaterally Cardiovascular: Normal pulses, Regular rate/rhythm Gastrointestinal: Normal bowel sounds Neurological: Normal speech, Normal strength at 5/5 x4 extr, Normal tone, Normal affect Assessment & Plan Discharge Plan: Other (SNF) Plan to discharge in: 24 Hours Physician Review Additional Text: Assessment 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 Patient was agitated last night. Son was able to be present. Home medications reviewed. Will restart medication including Risperdal. Continue aspirin, Plavix, folic acid. Still waiting transfer to skilled placement. Will need to have COVID test finalize. Once this is done then will proceed with placement. Continue physical, occupational and speech therapy. Overall stable. Will continue to monitor for agitation. anticipate discharge within the next 24 hr. I will turn the service over to the hospitalist team tomorrow. I will go over the plan of care with him. Diabetes mellitus type 2-insulin dependent: Hemoglobin A1c of 8.9. Will continue to adjust Lantus for better control. Hypertension: Blood pressures remained stable. Patient on lisinopril. Parameters placed. Latest reading of 125/75. So far is not required blood pressure medication. Continue patient's home medications once verified. Depression with anxiety: Restart home medication BPH: Continue home medication Time Spent Managing Pts Care (In Minutes): 55
[2019-12-11] MEDS: ENOXAPARIN 40 MG/0.4 ML SQ SCH (17:47)
[2019-12-11] MEDS: ATORVASTATIN 20 MG TAB PO SCH (20:11)
[2019-12-11] MEDS: RISPERIDONE 1 MG TABLET PO SCH (20:11)
[2019-12-11] MEDS: MELATONIN 5 MG TABLET PO SCH (20:12)
[2019-12-11] MEDS: INSULIN GLARGINE 100 UNITS/ML SQ SCH (20:12)
[2019-12-12] MEDS: INSULIN -REGULAR HUMAN 50 UNIT/0.5 ML ML SQ SCH ×4 (07:30→20:52)
[2019-12-12] MEDS: FOLIC ACID 1 MG TABLET PO SCH (08:29)
[2019-12-12] MEDS: ASPIRIN EC 81 MG TAB PO SCH (08:29)
[2019-12-12] MEDS: lisinopriL 5 MG TAB PO SCH (08:29)
[2019-12-12] MEDS: CLOPIDOGREL 75 MG TABLET PO SCH (08:29)
[2019-12-12] MEDS: CITALOPRAM 10 MG TABLET PO SCH (08:30)
[2019-12-12] MEDS: FINASTERIDE 5 MG TAB PO SCH (08:30)
--- NOTE | 2019-12-12 11:15 | P.PN ---
Subjective Date of Service: 12/12/19 Primary Care Provider: THEODORA Chief Complaint: CVA Subjective: No new changes, Doing well <GtmilenaTrace edmonds - Last Filed: 12/12/19 11:20> Date of Service: 12/12/19 <ChinchillaGelacio - Last Filed: 12/12/19 14:06> Review of Systems General: As per HPI Eyes: Unremarkable ENT: Unremarkable Respiratory: Unremarkable Cardiovascular: Unremarkable Gastrointestinal: Unremarkable Genitourinary: Unremarkable Musculoskeletal: Unremarkable Neurological: Unremarkable <GtmilenaTrace edmonds - Last Filed: 12/12/19 11:20> Physical Examination - Vital Signs Temperature: 97.0 F Blood Pressure: 135/73 Pulse: 62 Respirations: 16 Pulse Ox (%): 96 - Physical Exam General: Alert, In no apparent distress, Oriented x3, Cooperative HEENT: Atraumatic, Normocephalic, PERRLA Neck: Supple, No Thyromegaly Respiratory: Clear to auscultation bilaterally, Normal air movement Cardiovascular: No edema, Normal pulses, Regular rate/rhythm, Normal S1 S2 Capillary refill: <2 Seconds Gastrointestinal: Normal bowel sounds, Soft and benign, Non-distended, No tenderness Musculoskeletal: No clubbing, No swelling, No contractures, No erythema Integumentary: No rashes, No breakdown, No significant lesion Neurological: Normal gait, Normal speech, Normal strength at 5/5 x4 extr, Normal tone Other Physical/Emotional Findings: Calm and cooperative today. 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 Patient was agitated last night but today patient is calm and cooperative. No family bedside. Home medications reviewed. Continue Risperdal. Continue aspirin, Plavix, folic acid. Still waiting transfer to skilled placement. Will need to have COVID test finalize, no results so far. Once this is done then will proceed with placement. Continue physical, occupational and speech therapy. Overall stable. Will continue to monitor for agitation. Anticipate discharge within the next 24 hr. Diabetes mellitus type 2-insulin dependent: Hemoglobin A1c of 8.9. Will continue to adjust Lantus for better control. Blood glucose of 132 this morning. Improved. Hypertension: Blood pressures remained stable. Patient on lisinopril. Parameters placed. Latest reading of 135/73. So far is not required blood pressure medication. Continue patient's home medications once verified. Depression with anxiety: Restart home medication. Calm and cooperative. 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 Patient was agitated last night. Son was able to be present. Home medications reviewed. Will restart medication including Risperdal. Continue aspirin, Plavix, folic acid. Still waiting transfer to skilled placement. Will need to have COVID test finalize. Once this is done then will proceed with placement. Continue physical, occupational and speech therapy. Overall stable. Will continue to monitor for agitation. anticipate discharge within the next 24 hr. I will turn the service over to the hospitalist team tomorrow. I will go over the plan of care with him. Diabetes mellitus type 2-insulin dependent: Hemoglobin A1c of 8.9. Will continue to adjust Lantus for better control. Hypertension: Blood pressures remained stable. Patient on lisinopril. Parameters placed. Latest reading of 125/75. So far is not required blood pressure medication. Continue patient's home medications once verified. Depression with anxiety: Restart home medication BPH: Continue home medication Time Spent Managing PTS Care (In Minutes): 45 <Trace Nielsen - Last Filed: 12/12/19 11:20> Physician Review Additional Text: Patient was seen and examined and findings were discussed with SONAM Agree with the assessment and plan as documented by SONAM <Gelacio Chinchilla - Last Filed: 12/12/19 14:06>
[2019-12-12] MEDS: ENOXAPARIN 40 MG/0.4 ML SQ SCH (16:14)
[2019-12-12] MEDS: ATORVASTATIN 20 MG TAB PO SCH (20:50)
[2019-12-12] MEDS: MELATONIN 5 MG TABLET PO SCH (20:50)
[2019-12-12] MEDS: INSULIN GLARGINE 100 UNITS/ML SQ SCH (20:50)
[2019-12-12] MEDS: RISPERIDONE 1 MG TABLET PO SCH (20:54)
[2019-12-13] MEDS: CLOPIDOGREL 75 MG TABLET PO SCH (08:35)
[2019-12-13] MEDS: ASPIRIN EC 81 MG TAB PO SCH (08:35)
[2019-12-13] MEDS: INSULIN -REGULAR HUMAN 50 UNIT/0.5 ML ML SQ SCH ×2 (08:36→12:20)
[2019-12-13] MEDS: CITALOPRAM 10 MG TABLET PO SCH (08:36)
[2019-12-13] MEDS: FOLIC ACID 1 MG TABLET PO SCH (08:36)
[2019-12-13] MEDS: FINASTERIDE 5 MG TAB PO SCH (08:36)
[2019-12-13] MEDS: lisinopriL 5 MG TAB PO SCH (08:36)
--- NOTE | 2019-12-13 09:49 | P.PN ---
Subjective Date of Service: 12/13/19 Primary Care Provider: THEODORA Chief Complaint: CVA Subjective: Tolerating diet, Doing well <Trace Nielsen - Last Filed: 12/13/19 09:52> Date of Service: 12/13/19 <AmorGelacio - Last Filed: 12/13/19 11:54> Review of Systems 10-point ROS is otherwise unremarkable <Trace Nielsen - Last Filed: 12/13/19 09:52> Physical Examination - Vital Signs Temperature: 97.7 F Blood Pressure: 133/96 Pulse: 70 Respirations: 18 Pulse Ox (%): 98 - Physical Exam General: Alert, In no apparent distress, Oriented x3 HEENT: Atraumatic, Normocephalic, PERRLA Neck: Supple, No Thyromegaly Respiratory: Clear to auscultation bilaterally, Normal air movement Cardiovascular: No edema, Normal pulses Capillary refill: <2 Seconds Gastrointestinal: Soft and benign, Non-distended Musculoskeletal: No clubbing, No swelling, No contractures, No warmth Integumentary: No rashes, No erythema, No warmth Neurological: Normal strength at 5/5 x4 extr, Normal tone Other Physical/Emotional Findings: Calm and cooperative today. 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 Continues calm and cooperative. In good spirits. No family bedside. Continue Risperdal. Continue aspirin, Plavix, folic acid. Still waiting transfer to skilled placement. Will need to have COVID test finalize. Once this is done then will proceed with placement. Continue physical, occupational and speech therapy. Patient is participating well. Overall stable. Will continue to monitor for agitation. Anticipate discharge within the next 24 hr. Diabetes mellitus type 2-insulin dependent: Hemoglobin A1c of 8.9. Will continue to adjust Lantus for better control. Blood glucose of 132->155 this morning. Hypertension: Blood pressures remained stable. Continue lisinopril. Parameters placed. Latest reading of 133/96. Depression with anxiety: Continue home medication. Calm and cooperative. In good spirits. BPH: Continue home medication Discharge Plan: [facility] Plan to discharge in: 48 Hours - Code Status/Comfort Care Code Status Assessed: Yes Physician Review Additional Text: Patient was seen and examined and findings were discussed with SONAM Agree with the assessment and plan as documented by SONAM Time Spent Managing PTS Care (In Minutes): 45 <Trace Nielsen - Last Filed: 12/13/19 09:52>
[2019-12-13 09:50] VITALS: O2SAT 95
--- NOTE | 2019-12-13 10:25 | P.DS ---
Admission Date: 12/08/19 Discharge Date: 12/13/19 Primary Care Provider: THEODORA Comment: Negative Covid test Reason for Admission: CVA Procedures: CT of the head-FINDINGS: An intracranial bleed is not seen .The ventricles are normal in caliber. No extra-axial fluid collection is noted. Moderate low-density areas within the left occipital, left temporal left parietal lobes have become more well-defined since the prior exam. Fluid within the sinuses/ mastoids is not seen. IMPRESSION: Moderate relatively acute infarction involving left occipital, left temporal and left parietal lobes Carotid Doppler-FINDINGS: The velocity of the right internal carotid artery equals 93 cm/sec. The right ICA/CCA ratio 1. The velocity of the left internal carotid artery equals 72 cm/sec. The left ICA/CCA ratio .9 Mild to moderate calcified plaque right carotid bulb. Mild plaque left internal carotid artery The vertebral arteries demonstrate antegrade flow IMPRESSION: Mild tomato plaque within the right carotid bulb without evidence of a hemodynamically significant stenosis Echocardiogram- LEFT VENTRICULAR WALL MOTION: MILD GLOBAL HYPOKINESIS. DOPPLER/COLOR FLOW: NORMAL COMMENTS: MILD GLOBAL HYPOKINESIS. LEFT VENTRICULAR EJECTION FRACTION 40- 45%. MITRAL ANNULAR CALCIFICATION. NO EFFUSION. - Problems (1) CVA (cerebrovascular accident) Current Visit: Yes Status: Acute (2) Expressive aphasia Current Visit: Yes Status: Acute (3) Diabetes mellitus Current Visit: Yes Status: Chronic Qualifiers: Diabetes mellitus type: type 2 (4) Essential hypertension Current Visit: Yes Status: Chronic (5) Anxiety Current Visit: Yes Status: Chronic (6) Depression Current Visit: Yes Status: Chronic Brief History of Present Illness: 79-year-old male, last known well 2300 on 12/07/2019 was reported to be having some expressive aphasia at home by family. His right to the emergency department today around 1440 for evaluation. Patient was worked up in emergency department found to have a subacute left posterior temporoparietal infarct. Patient was expressive aphasia. ED provider wishes to admit for further evaluation and management. When I saw the patient in the emergency department he was awake, alert, son is at bedside. Patient with significant expressive aphasia, moves all 4 extremities, good strength. The patient did pass a swallow screen in the emergency department. Will be admitted for further evaluation management. Hospital Course: During his hospital course patient was admitted for acute CVA with deficits consisting of expressive aphasia. Patient was evaluated in the ER and further workup included CT of the head, carotid Doppler and echocardiogram. CT of the head had findings ofModerate relatively acute infarction involving left occipita l, left temporal and left parietal lobes, carotid Doppler showed mild to moderate right carotid bulb plaquing and mild left internal carotid artery plaquing but no severe stenosis. Echocardiogram showed mild global hypokinesis with an EF estimated at 40-45% and mild mitral annular calcification. Patient was evaluated by PT/OT and speech and participated well with all. It is believed that patient would benefit from further rehabilitation. Patient's blood pressure is better controlled and slight modifications to the patient's diabetic medications has been made. Blood glucose has been better controlled compared Today insurance approved and the patient will be transferred. Covid test is negative. <Trace Nielsen - Last Filed: 12/13/19 10:52> Admission Date: 12/08/19 Discharge Date: 12/13/19 <Gelacio Chinchilla - Last Filed: 12/13/19 11:54> Disposition: TRANSFER TO INPATIENT REHAB Discharge Condition: GOOD Vital Signs/Physical Exam: Temp Pulse Resp BP Pulse Ox 97.7 F 70 18 133/96 H 98 12/13/19 09:54 12/13/19 09:54 12/13/19 09:54 12/13/19 09:54 12/13/19 09:54 General: Alert, In no apparent distress, Oriented x3 HEENT: Atraumatic, Normocephalic, PERRLA Neck: Supple, Other (Trachea midline) Respiratory: Clear to auscultation bilaterally, Normal air movement Cardiovascular: No edema, Normal pulses, Regular rate/rhythm Capillary refill: <2 Seconds Gastrointestinal: Normal bowel sounds, Soft and benign Musculoskeletal: No clubbing, No swelling, No contractures Integumentary: No rashes, No breakdown, No significant lesion Neurological: Normal gait, Normal strength at 5/5 x4 extr, Normal tone, Abnormal speech (Expressive aphasia) Other Physical/Emotional Findings: Calm and cooperative today. Laboratory Data at Discharge: WBC 6.5 K/uL (4.3-10.9) D 12/11/19 04:51 Hgb 12.6 g/dL (13.6-17.9) L 12/11/19 04:51 Hct 37.2 % (39.6-49.0) L 12/11/19 04:51 Plt Count 232 K/uL (152-406) 12/11/19 04:51 PT 12.5 SECONDS (9.5-12.5) 12/08/19 14:40 INR 1.06 12/08/19 14:40 APTT 29.9 SECONDS (24.3-36.9) 12/08/19 14:40 Sodium 141 mmol/L (136-145) 12/12/19 05:17 Potassium 4.0 mmol/L (3.5-5.1) 12/12/19 05:17 BUN 14 mg/dL (7-18) 12/12/19 05:17 Creatinine 0.95 mg/dL (0.55-1.3) 12/12/19 05:17 Glucose 146 mg/dL (74-106) H 12/12/19 05:17 Magnesium 2.0 mg/dL (1.8-2.4) 12/12/19 05:17 Triglycerides 95 mg/dL (<150) 12/09/19 03:49 Cholesterol 175 mg/dL (<200) 12/09/19 03:49 HDL Cholesterol 53 mg/dL (40-60) 12/09/19 03:49 Cholesterol/HDL Ratio 3.30 12/09/19 03:49 Imagings Data: CT of the head x2 Carotid Doppler Echocardiogram CTA head CTA neck Chest x-ray Electrocardiogram <Trace Nielsen - Last Filed: 12/13/19 10:52> Vital Signs/Physical Exam: Temp Pulse Resp BP Pulse Ox 97.7 F 70 18 133/96 H 98 12/13/19 09:54 12/13/19 09:54 12/13/19 09:54 12/13/19 09:54 12/13/19 09:54 Laboratory Data at Discharge: WBC 6.5 K/uL (4.3-10.9) D 12/11/19 04:51 Hgb 12.6 g/dL (13.6-17.9) L 12/11/19 04:51 Hct 37.2 % (39.6-49.0) L 12/11/19 04:51 Plt Count 232 K/uL (152-406) 12/11/19 04:51 PT 12.5 SECONDS (9.5-12.5) 12/08/19 14:40 INR 1.06 12/08/19 14:40 APTT 29.9 SECONDS (24.3-36.9) 12/08/19 14:40 Sodium 141 mmol/L (136-145) 12/12/19 05:17 Potassium 4.0 mmol/L (3.5-5.1) 12/12/19 05:17 BUN 14 mg/dL (7-18) 12/12/19 05:17 Creatinine 0.95 mg/dL (0.55-1.3) 12/12/19 05:17 Glucose 146 mg/dL (74-106) H 12/12/19 05:17 Magnesium 2.0 mg/dL (1.8-2.4) 12/12/19 05:17 Triglycerides 95 mg/dL (<150) 12/09/19 03:49 Cholesterol 175 mg/dL (<200) 12/09/19 03:49 HDL Cholesterol 53 mg/dL (40-60) 12/09/19 03:49 Cholesterol/HDL Ratio 3.30 12/09/19 03:49 <Gelacio Chinchilla - Last Filed: 12/13/19 11:54> Patient Discharge Instructions: Review new/home medications and dosing. Inform son/family that patient will be discharged today. Informant son/family patient has negative Covid test results. Follow-up with Dr. Chavis in 1 month after discharge Diet: ADA Activity: Fall precautions Time spent managing pt's care (in minutes): 55 <Trace Nielsen - Last Filed: 12/13/19 10:52> <Gelacio Chinchilla - Last Filed: 12/13/19 11:54> Home Medications: Atorvastatin Calcium [Lipitor*] 40 mg PO BEDTIME 30 Days #0 tab 12/13/19 Citalopram [Celexa*] 20 mg PO DAILY tablet 12/13/19 Clopidogrel Bisulfate [Plavix*] 75 mg PO DAILY tablet 12/13/19 Finasteride [Proscar*] 5 mg PO DAILY tab 12/13/19 Folic Acid 1 mg PO DAILY #30 tablet 12/13/19 Insulin -Regular Human [Novolin -R*] See Protocol SQ ACHS #0 ml 12/13/19 Insulin Glargine Human [Lantus*] 10 units SQ BEDTIME ml 12/13/19 Melatonin 5 mg PO BEDTIME #0 tablet 12/13/19 lisinopriL [Prinivil*] 5 mg PO DAILY 30 Days #0 tab 12/13/19 risperiDONE [Risperdal 1 mg tab*] 2 mg PO BEDTIME tab 12/13/19 New Medications: Folic Acid 1 mg PO DAILY #30 tablet Followup: Lico Chavis MD [ASSOCIATE-ACTIVE - CAN ADMIT] -
[2019-12-13 12:00] VITALS: BP 145/69; TEMP 97.9
== END 2019-12-13 13:01 | DRG 66 ==
LOC: ER 14:27 → ERHOLD 17:35 → 4TH 20:03 → 2ND 12-11 18:02
PROVIDERS: ADMIT Family Medicine; ATTEND Family Medicine
DX: I63.9 Cerebral infarction, unspecified (principal); R47.01 Aphasia; I10 Essential (primary) hypertension; E83.52 Hypercalcemia; F41.8 Other specified anxiety disorders; N40.0 Benign prostatic hyperplasia without lower urinary tract symptoms; E11.9 Type 2 diabetes mellitus without complications; R29.702 NIHSS score 2; Z95.0 Presence of cardiac pacemaker; Z79.4 Long term (current) use of insulin; Z87.891 Personal history of nicotine dependence; Z11.59 Encounter for screening for other viral diseases; Z79.02 Long term (current) use of antithrombotics/antiplatelets; Z79.899 Other long term (current) drug therapy
CPT/HCPCS: 36415; 70450; 70496; 70498; 71045; 80048; 80061; 82947; 83036; 83735; 84436; 84439; 84443; 85025; 85610; 85730; 92507; 92523; 93005; 93306; 93880; 96365; 97110; 97112; 97116; 97161; 99285; J1630; J1650; J1815; J3475; J7030; Q9967; U0002

== ENCOUNTER 2020-01-08 19:15 | Emergency (ER) | payer OTHER ==
[2020-01-08 20:13] LABS: Absolute Lymphocytes (CBC) 1.3 K/uL (0.7-4.9); Basophils % 0.4 % (0-1.3); Hematocrit 38.6 % (39.6-49.0); Lymphocytes % 14.6 % (15.3-44.8); MPV 8.5 fL (7.6-11.3); RBC Red Blood Cell Count 4.56 M/uL (4.33-5.43)
[2020-01-08 20:21] LABS: Protime INR 0.97
[2020-01-08 20:27] LABS: ALT/SGPT 60 U/L (12-78); AST/SGOT 24 U/L (15-37); Albumin 3.1 g/dL (3.4-5.0); Alkaline Phosphatase 153 U/L (45-117); BUN Blood Urea Nitrogen 28 mg/dL (7-18); Bicarbonate 22 mmol/L (21-32); Bilirubin Direct 0.2 mg/dL (0-0.2); Bilirubin Total 0.6 mg/dL (0.2-1.0); Glucose Level 123 mg/dL (74-106); Magnesium 1.5 mg/dL (1.8-2.4); NT PRO-BNP 184 pg/mL (<450); Potassium 4.2 mmol/L (3.5-5.1); Protein, Total 6.7 g/dL (6.4-8.2); Sodium Level 138 mmol/L (136-145); Troponin (Emerg Dept Use Only) < 0.02 ng/mL (0.0-0.045)
--- NOTE | 2020-01-08 21:11 | RAD REPORT ---
EXAM DESCRIPTION: RAD - Chest Single View - 01/08/2020 8:23 pm CLINICAL HISTORY: low sugar, hypertension COMPARISON: Portable December 07 TECHNIQUE: AP portable chest image was obtained 01/08/2020 8:23 pm . FINDINGS: Lung volumes are very low. No peripheral mass, consolidation or pulmonary edema pattern. L judith markings are not significantly different from comparison. Sternotomy wires are in place. Left-kylah ed pacemaker in place. Heart and vasculature are normal. No measurable pleural effusion and no pneumo thorax. No acute bony abnormality seen. No acute aortic findings suspected. IMPRESSION: Limited shallow inspiration exam without acute cardiopulmonary finding.
--- NOTE | 2020-01-08 21:20 | RAD REPORT ---
EXAM DESCRIPTION: CT - Head Brain Wo Cont - 01/08/2020 9:06 pm CLINICAL HISTORY: LOC, hypertension COMPARISON: Head Brain Wo Cont dated 12/09/2019 TECHNIQUE: Axial 5 mm thick images of the head were obtained without IV contrast. All CT scans are performed using dose optimization technique as appropriate and may include automated exposure control or mA/KV adjustment according to patient size. FINDINGS: No intracranial hemorrhage, mass, edema or shift of mid-line structures. No acute cortical based infarction. Areas of diminished attenuation are seen in the left parietal, temporal and occipi chuy lobes. These of the areas of developing encephalomalacia related to prior CVA detailed on the Nov imaging. No mass effect seen. Underlying atrophy and chronic ischemic change are similar to comp arison. Ventricles remain in proportion to volume loss. Mastoid air cells and visualized portions of the paranasal sinuses are clear. No acute bony findings. IMPRESSION: No hemorrhage is present and no acute intracranial finding seen. Areas of diminished attenuation in the left cerebral hemisphere are areas of developing encephalomala alvarado at sites of infarction detailed December 08.
[2020-01-08] MEDS ORDERED: Magnesium Sulfate 2gm IVPB 2 G/50 ML BAG IV ONE (22:31)
[2020-01-08] MEDS ORDERED: NA CHLORIDE 0.9% 100 ML IV ONE (22:31)
--- NOTE | 2020-01-08 23:24 | ER ---
Nurse's Notes [facility] Name: Omar Norris Age: 79 yrs Sex: Male : 1940 Arrival Date: 01/08/2020 Time: 19:21 Bed 4 Private MD: Diagnosis: Hypoglycemia, unspecified Presentation: 01/07 19:21 Chief complaint: EMS states: we were called out with a complaint of low blood sugar. rr5 when we came the sugar is low. D10 250ml given sugar rechecked its CBG 222 mg/Dl. Coronavirus screen: Client denies travel out of the [place] in the last 14 days. Client reports previous positive COVID test result. Staff notified of need for isolation. Ebola Screen: Patient negative for fever greater than or equal to 101.5 degrees Fahrenheit, and additional compatible Ebola Virus Disease symptoms Patient denies exposure to infectious person. Patient denies travel to an Ebola-affected area in the 21 days before illness onset. Initial Sepsis Screen: Does the patient meet any 2 criteria? No. Patient's initial sepsis screen is negative. Does the patient have a suspected source of infection? No. Patient's initial sepsis screen is negative. Risk Assessment: Do you want to hurt yourself or someone else? Patient reports no desire to harm self or others. Onset of symptoms was January 08, 2020. 19:21 Method Of Arrival: EMS: [facility] rr5 19:21 Acuity: TANIA 3 rr5 19:45 Note spoke to stephen (daughter in law) patient had an episode of sugar of 40 mg/DL rr5 started yesterday and today it resulted 30 mg/DL. he was in a half-way before and release last Sunday. he was tested positive before "I don't know if they re swab him after the quarantine period". Historical: - Allergies: 19:41 No Known Allergies; rr5 - Home Meds: 19:28 Cipro Oral [Active]; folic acid 1 mg Oral tab [Active]; clopidogrel oral oral [Active]; rr5 metformin 1,000 mg Oral tr24 [Active]; risperidone oral oral [Active]; carvedilol 3.125 mg oral tab [Active]; Lisinopril Oral [Active]; finasteride 5 mg oral tab [Active]; Novolog Sub-Q [Active]; Lantus 100 unit/mL Sub-Q soln nightly [Active]; - PMHx: 19:28 Diabetes - IDDM; Hypertension; Pacemaker; rr5 19:37 stroke; rr5 - PSHx: 19:37 Heart stents; Knee surgery; rr5 - Immunization history:: Adult Immunizations unknown. - Social history:: Smoking status: unknown Patient uses alcohol, occasionally. Patient/guardian denies using street drugs. Screenin:20 Abuse screen: Denies threats or abuse. Denies injuries from another. Nutritional rr5 screening: No deficits noted. Tuberculosis screening: No symptoms or risk factors identified. Fall Risk IV access (20 points). Total Gupta Fall Scale indicates No Risk (0-24 pts). Assessment: 19:20 General: Appears in no apparent distress. comfortable, Behavior is calm, cooperative, rr5 appropriate for age. 19:20 Pain: Denies pain. Neuro: Level of Consciousness is awake, alert, obeys commands, rr5 Oriented to person, place, time. Cardiovascular: Capillary refill < 3 seconds Patient's skin is warm and dry. Respiratory: Airway is patent Respiratory effort is even, unlabored, Respiratory pattern is regular, symmetrical. GI: Abdomen is round non-distended, Parent/caregiver reports the patient having daughter in law said sugar went down to 40 mg/Dl yesterday and today 30 mg/Dl. : No signs and/or symptoms were reported regarding the genitourinary system. EENT: No signs and/or symptoms were reported regarding the EENT system. Derm: Skin is intact, is fragile, is thin, Skin temperature is warm. Musculoskeletal: Capillary refill < 3 seconds. 20:30 Reassessment: Patient appears in no apparent distress at this time. Patient is alert, rr5 oriented x 3, equal unlabored respirations, skin warm/dry/pink. 21:09 Reassessment: Patient is alert, oriented x 3, equal unlabored respirations, skin ea warm/dry/pink. Pt returned from CT. 22:00 Reassessment: Patient appears in no apparent distress at this time. Patient and/or rr5 family updated on plan of care and expected duration. Pain level reassessed. 23:00 Reassessment: Patient appears in no apparent distress at this time. Patient is alert, rr5 oriented x 3, equal unlabored respirations, skin warm/dry/pink. snacks given with good appetite. family member updated for the status of the patient. 01/08 00:10 Reassessment: Patient appears in no apparent distress at this time. Patient is alert, rr5 oriented x 3, equal unlabored respirations, skin warm/dry/pink. discharge instruction given and explained without complaints made. Vital Signs: 01/07 19:21 BP 127 / 72; Pulse 66; Resp 16; Temp 97.8; Pulse Ox 98% ; Weight 67.13 kg; Height 5 ft. rr5 9 in. (175.26 cm); Pain 0/10; 20:24 BP 140 / 70; Pulse 68; Resp 19; Pulse Ox 99% ; rr5 22:00 BP 141 / 85; Pulse 60; Resp 18; Pulse Ox 98% ; rr5 23:02 BP 143 / 93; Pulse 78; Resp 20; Pulse Ox 96% ; ea 01/08 00:00 BP 141 / 70; Pulse 75; Resp 16; Temp 98; Pulse Ox 98% ; rr5 01/07 19:21 Body Mass Index 21.86 (67.13 kg, 175.26 cm) rr5 Wallace Coma Score: 01/07 20:20 Eye Response: spontaneous(4). Verbal Response: oriented(5). Motor Response: obeys cp commands(6). Total: 15. ED Course: 19:20 Patient has correct armband on for positive identification. Placed in gown. Bed in low rr5 position. Call light in reach. Side rails up X2. site monitor on. Pulse ox on. NIBP on. 19:20 Maintain EMS IV. Dressing intact. Good blood return noted. Site clean \\T\\ dry. Gauge \\T\\ rr 5 site: g18 left AC. 19:21 Patient arrived in ED. rr5 19:25 Triage completed. rr5 19:37 Arm band placed on right wrist. rr5 19:39 Franco Coleman RN is Primary Nurse. rr5 20:04 Jose Carlos Ordonez PA is PHCP. cp 20:04 Carmelo Oh MD is Attending Physician. cp 20:06 EKG done, by ED staff, reviewed by Carmelo Oh MD. rr5 20:23 XRAY Chest (1 view) In Process Unspecified. EDMS 20:25 Urine collected: clean catch specimen, clear. rr5 21:06 CT Head Brain wo Cont In Process Unspecified. EDMS 23:28 No provider procedures requiring assistance completed. zuleika 01/08 00:15 IV discontinued, intact, bleeding controlled, No redness/swelling at site. Pressure rr5 dressing applied. Administered Medications: 01/07 22:27 Drug: Magnesium Sulfate 2 grams Route: IVPB; Infused Over: 1 hrs; Site: left rr5 antecubital; 23:30 Follow up: Response: No adverse reaction; IV Status: Completed infusion; IV Intake: [id number] Intake: 23:30 IV: 50ml; Total: 50ml. rr5 Outcome: 23:24 Discharge ordered by . pawel 01/08 00:15 Discharged to home via wheelchair. rr5 Condition: stable Discharge instructions given to patient, family, Instructed on discharge instructions, follow up and referral plans. Demonstrated understanding of instructions, follow-up care. 00:16 Patient left the ED. sg Signatures: Dispatcher [employer] EDMS Magan Panchal RN RN Jose Carlos Montaño PA PA cp Antunez, Elena, RN RN ea Roque, Raymond RN RN rr5 Corrections: (The following items were deleted from the chart) 01/07 19:41 19:37 Allergies: unable to recall; rr5 rr5 19:48 19:21 Coronavirus screen: Client denies travel out of the [place] in the last 14 days. At rr5 this time, the client does not indicate any symptoms associated with coronavirus-19. rr5
--- NOTE | 2020-01-08 23:24 | EDPHYS ---
Physician Documentation [facility] Name: Omar Norris Age: 79 yrs Sex: Male : 1940 Arrival Date: 01/08/2020 Time: 19:21 Bed 4 Private MD: ED Physician Carmelo Oh HPI: 01/07 20:10 This 79 yrs old Unknown Male presents to ER via EMS with complaints of Low Blood Sugar. cp 20:10 The patient or guardian reports hypoglycemia, that was potentially precipitated by no cp particular event. Onset: The symptoms/episode began/occurred today. Associated signs and symptoms: Pertinent positives: brief loss of consciousness, loss of consciousness for an unknown amount of time. Current symptoms: In the emergency department the patient's symptoms have resolved, the patient is alert and fully oriented. Historical: - Allergies: 19:41 No Known Allergies; rr5 - Home Meds: 19:28 Cipro Oral [Active]; folic acid 1 mg Oral tab [Active]; clopidogrel oral oral [Active]; rr5 metformin 1,000 mg Oral tr24 [Active]; risperidone oral oral [Active]; carvedilol 3.125 mg oral tab [Active]; Lisinopril Oral [Active]; finasteride 5 mg oral tab [Active]; Novolog Sub-Q [Active]; Lantus 100 unit/mL Sub-Q soln nightly [Active]; - PMHx: 19:28 Diabetes - IDDM; Hypertension; Pacemaker; rr5 19:37 stroke; rr5 - PSHx: 19:37 Heart stents; Knee surgery; rr5 - Immunization history:: Adult Immunizations unknown. - Social history:: Smoking status: unknown Patient uses alcohol, occasionally. Patient/guardian denies using street drugs. ROS: 20:15 Constitutional: Negative for body aches, chills, fever, poor PO intake. cp 20:15 Eyes: Negative for injury, pain, redness, and discharge. cp 20:15 ENT: Negative for ear pain, sore throat, difficulty swallowing, difficulty handling secretions. 20:15 Cardiovascular: Negative for chest pain, edema, palpitations. 20:15 Respiratory: Negative for cough, shortness of breath, wheezing. 20:15 Abdomen/GI: Negative for abdominal pain, nausea, vomiting, and diarrhea. 20:15 Neuro: Positive for loss of consciousness, Negative for altered mental status, headache, weakness. 20:15 Endocrine: Positive for hypoglycemia. 20:15 All other systems are negative. Exam: 20:10 ECG was reviewed by the Attending Physician. cp 20:20 Constitutional: The patient appears in no acute distress, alert, awake, comfortable, cp non-diaphoretic, non-toxic, well developed, well nourished. 20:20 Head/Face: Normocephalic, atraumatic. cp 20:20 Eyes: Periorbital structures: appear normal, Pupils: equal, round, and reactive to cp light and accomodation, Extraocular movements: intact throughout, Conjunctiva: normal, no exudate, no injection, Sclera: no appreciated abnormality, Lids and lashes: appear normal, bilaterally. 20:20 ENT: External ear(s): are unremarkable, Nose: is normal, Mouth: Lips: moist, Oral mucosa: pink and intact, moist, Posterior pharynx: Airway: no evidence of obstruction, patent. 20:20 Chest/axilla: Inspection: normal. 20:20 Cardiovascular: Rate: normal, Rhythm: regular, paced, Edema: is not appreciated, JVD: is not appreciated. 20:20 Respiratory: the patient does not display signs of respiratory distress, Respirations: normal, no use of accessory muscles, no retractions, labored breathing, is not present, Breath sounds: are clear throughout, no decreased breath sounds. 20:20 Abdomen/GI: Inspection: abdomen appears normal, Palpation: abdomen is soft and non-tender, in all quadrants. 20:20 Back: pain, is absent, ROM is normal. 20:20 Neuro: Orientation: to person, place \T\ time. Mentation: is normal, Cerebellar function: is grossly normal, Motor: moves all fours, strength is normal, Sensation: is normal. Vital Signs: 19:21 BP 127 / 72; Pulse 66; Resp 16; Temp 97.8; Pulse Ox 98% ; Weight 67.13 kg; Height 5 ft. rr5 9 in. (175.26 cm); Pain 0/10; 20:24 BP 140 / 70; Pulse 68; Resp 19; Pulse Ox 99% ; rr5 22:00 BP 141 / 85; Pulse 60; Resp 18; Pulse Ox 98% ; rr5 23:02 BP 143 / 93; Pulse 78; Resp 20; Pulse Ox 96% ; ea 01/08 00:00 BP 141 / 70; Pulse 75; Resp 16; Temp 98; Pulse Ox 98% ; rr5 01/07 19:21 Body Mass Index 21.86 (67.13 kg, 175.26 cm) rr5 [place] Coma Score: 01/07 20:20 Eye Response: spontaneous(4). Verbal Response: oriented(5). Motor Response: obeys cp commands(6). Total: 15. MDM: 20:07 Patient medically screened. cp 20:30 Differential diagnosis: DKA, hyperglycemia, hypoglycemic episode, cardiac arrythmia. cp 23:00 Data reviewed: vital signs, nurses notes, lab test result(s), EKG, radiologic studies, cp CT scan, plain films. 23:23 Counseling: I had a detailed discussion with the patient and/or guardian regarding: the cp historical points, exam findings, and any diagnostic results supporting the discharge/admit diagnosis, lab results, radiology results, the need for outpatient follow up, an scheduling representative, to return to the emergency department if symptoms worsen or persist or if there are any questions or concerns that arise at home. 23:23 Response to treatment: the patient's symptoms have resolved after treatment, mental cp status has returned to baseline, and as a result, I will discharge patient. 01/07 19:41 Order name: Glucose, Ancillary Testing; Complete Time: 19:51 EDMS 01/07 19:52 Order name: Basic Metabolic Panel; Complete Time: 20:41 [facility] 01/07 20:41 Interpretation: Normal except: GLUC 123; BUN 28; GFR 61; CA 8.0. cp 01/07 19:52 Order name: CBC with Diff; Complete Time: 20:41 [facility] 01/07 19:52 Order name: LFT's; Complete Time: 20:41 [facility] 01/07 19:52 Order name: Magnesium; Complete Time: 20:41 [facility] 01/07 19:52 Order name: NT PRO-BNP; Complete Time: 20:41 [facility] 01/07 19:52 Order name: PT-INR; Complete Time: 20:41 [facility] 01/07 19:52 Order name: Troponin (emerg Dept Use Only); Complete Time: 20:41 [facility] 01/07 19:52 Order name: XRAY Chest (1 view); Complete Time: 21:25 rr5 01/07 19:52 Order name: EKG; Complete Time: 19:53 rr5 01/07 20:43 Order name: CT Head Brain wo Cont; Complete Time: 21:25 cp 01/07 21:26 Interpretation: Report reviewed. 01/07 22:25 Order name: Glucose, Ancillary Testing; Complete Time: 22:45 EDMS 01/07 23:55 Order name: Glucose, Ancillary Testing EDDC 01/07 19:52 Order name: Cardiac monitoring; Complete Time: 20:07 rr5 01/07 19:52 Order name: EKG - Nurse/Tech; Complete Time: 20:08 rr5 01/07 19:52 Order name: IV Saline Lock; Complete Time: 20:08 rr5 01/07 19:52 Order name: Labs collected and sent; Complete Time: 20:08 rr5 01/07 19:52 Order name: O2 Per Protocol; Complete Time: 20:09 rr5 01/07 19:52 Order name: O2 Sat Monitoring; Complete Time: 20:09 rr5 01/07 20:22 Order name: Urine Dipstick-Ancillary (obtain specimen); Complete Time: 20:22 rr5 01/07 20:25 Order name: Diet Heart Healthy; Complete Time: 20:37 cp 01/07 21:58 Order name: Accucheck Blood Glucose; Complete Time: 22:14 cp EC:10 Rate is 77 beats/min. Rhythm is regular with Atrial paced. OR interval is normal. QRS cp interval is normal. QT interval is normal. Interpreted by me. Reviewed by me. Administered Medications: 22:27 Drug: Magnesium Sulfate 2 grams Route: IVPB; Infused Over: 1 hrs; Site: left rr5 antecubital; 23:30 Follow up: Response: No adverse reaction; IV Status: Completed infusion; IV Intake: [id number] Disposition: 01/08 00:54 Co-signature as Attending Physician, Carmelo Oh MD. pkl Disposition: 01/08/20 23:24 Discharged to Home. Impression: Hypoglycemia, unspecified. - Condition is Stable. - Discharge Instructions: Hypoglycemia, Blood Glucose Monitoring, Adult. - Medication Reconciliation Form, Thank You Letter, Antibiotic Education, Prescription Opioid Use form. - Follow up: Private Physician; When: 1 - 2 days; Reason: Recheck today's complaints. - Problem is new. - Symptoms have improved. Signatures: Dispatcher [employer] Magan Salas RN RN sg Carmelo Oh MD MD pkJsoe Carlos Goel PA PA cp Roque, Raymond, RN RN rr5 Corrections: (The following items were deleted from the chart) 01/07 19:41 19:37 Allergies: unable to recall; rr5 rr5 20:41 20:41 Normal except: GLUC 123; BUN 28; GFR 61. cp cp 01/08 00:16 01/07 23:24 01/08/2020 23:24 Discharged to Home. Impression: Hypoglycemia, unspecified. sg Condition is Stable. Forms are Medication Reconciliation Form, Thank You Letter, Antibiotic Education, Prescription Opioid Use. Follow up: Private Physician; When: 1 - 2 days; Reason: Recheck today's complaints. Problem is new. Symptoms have improved. cp
[2020-01-09 00:23] VITALS: TEMP 97.8
[2020-01-09 00:28] VITALS: BP 143/93; O2SAT 96
--- NOTE | 2020-01-09 07:08 | EKG ---
Test Date: 2020-01-08 Test Time: 20:03:39 Paid Internship: RR MEASUREMENT RESULTS: Intervals: Rate: 77 NE: 156 QRSD: 84 QT: 380 QTc: 430 [place]: P: 0 NE: 156 QRS: 72 T: 88 INTERPRETIVE STATEMENTS: Electronic atrial pacemaker Anterior infarct, age undetermined Abnormal ECG Compared to ECG 12/08/2019 15:03:15 No significant changes Electronically Signed On 01-09-20 07:08:05 CDT by Reinier Harper
== END 2020-01-09 00:16 | disposition home or self-care (01) ==
LOC: ER 19:15
DX: E11.649 Type 2 diabetes mellitus with hypoglycemia without coma (principal); I10 Essential (primary) hypertension; Z79.4 Long term (current) use of insulin; Z95.0 Presence of cardiac pacemaker
CPT/HCPCS: 96365; 93005; 85025; 80048; 36415; 83735; 85610; 82947 ×3; 80076; 84484; 83880; 70450; 71045; 99284; J3475

== ENCOUNTER 2020-04-06 07:18 | Inpatient (IN) | payer OTHER ==
[2020-04-06] MEDS ORDERED: NA CHLORIDE 0.9% 1,000 ML ONE ×2 (07:47→11:52)
[2020-04-06] MEDS ORDERED: LIDOCAINE 1% MPF 5 ML VIAL ONE (08:08)
[2020-04-06] MEDS ORDERED: TETANUS & DIPHTHERIA TOX,ADULT 0.5 ML VIAL ONE (08:09)
[2020-04-06 08:13] LABS: Protime INR 0.99
[2020-04-06 08:19] LABS: Basophils % 0.2 % (0-1.3); Hematocrit 35.5 % (39.6-49.0); Lymphocytes % 9.8 % (15.3-44.8); RBC Red Blood Cell Count 4.16 M/uL (4.33-5.43)
--- NOTE | 2020-04-06 08:20 | RAD REPORT ---
EXAM DESCRIPTION: CT - [id number] - 04/06/2020 7:35 am CLINICAL HISTORY: Trauma, head and neck injury. Pain;Weakness COMPARISON: Neck Angio dated 12/08/2019; Head Brain Wo Cont dated 01/08/2020 TECHNIQUE: Axial 5 mm thick images of the head were obtained. Axial 2 mm thick images of the cervical spine were obtained with sagittal and coronal reconstruction images generated and reviewed. All CT scans are performed using dose optimization technique as appropriate and may include automated exposure control or mA/KV adjustment according to patient size. FINDINGS: CT HEAD WITHOUT CONTRAST: No acute hemorrhage, hydrocephalus or extra-axial collection is identified.Old infarct is seen in lef t parietooccipital region.No areas of brain edema or midline shift. Heavy vertebral atherosclerosis. The paranasal sinuses and mastoids are clear.The calvarium is intact. CT CERVICAL SPINE WITHOUT CONTRAST: No fracture or subluxation.Moderate multilevel cervical degenerative changes. Bony fusion of C2 and C 3.No prevertebral soft tissues swelling is identified. IMPRESSION: No acute intracranial or cervical spine findings. Advanced cervical degenerative changes. Old infarct left parietooccipital region.
[2020-04-06 08:28] LABS: ALT/SGPT 21 U/L (12-78); AST/SGOT 14 U/L (15-37); Albumin 3.3 g/dL (3.4-5.0); Alkaline Phosphatase 57 U/L (45-117); BUN Blood Urea Nitrogen 20 mg/dL (7-18); Bicarbonate 21 mmol/L (21-32); Bilirubin Direct 0.2 mg/dL (0-0.2); Bilirubin Total 0.9 mg/dL (0.2-1.0); Glucose Level 170 mg/dL (74-106); Magnesium 1.5 mg/dL (1.8-2.4); NT PRO-BNP 480 pg/mL (<450); Potassium 4.6 mmol/L (3.5-5.1); Protein, Total 6.1 g/dL (6.4-8.2); Sodium Level 133 mmol/L (136-145); Troponin (Emerg Dept Use Only) < 0.02 ng/mL (0.0-0.045)
--- NOTE | 2020-04-06 08:35 | RAD REPORT ---
EXAM DESCRIPTION: RAD - Chest Single View - 04/06/2020 7:47 am CLINICAL HISTORY: COUGH Chest pain. COMPARISON: Chest Single View dated 01/08/2020; Chest Single View dated 12/08/2019 FINDINGS: Portable technique limits examination quality. The lungs are grossly clear. The heart is normal in size. Sternotomy wires present.Multi lead pacer/d efibrillator device present. IMPRESSION: No acute intrathoracic process suspected.
[2020-04-06 09:36] LABS: Urine Blood NEGATIVE (NEG); Urine Glucose NEGATIVE (NEG); Urine Protein NEGATIVE (NEG); Urine pH 6.5 (5.0-7.0)
--- NOTE | 2020-04-06 10:27 | EDPHYS ---
Physician Documentation [facility] Name: Omar Norris Age: 79 yrs Sex: Male : 1940 Arrival Date: 04/06/2020 Time: 07:20 Bed 16 Private MD: ED Physician Jose Carlos Mirza HPI: 04/06 10:19 This 79 yrs old Male presents to ER via EMS with complaints of Fall Injury, tess low blood pressure. 10:19 Details of fall: The patient fell from an upright position, while walking. Onset: The tess symptoms/episode began/occurred just prior to arrival, this morning. Associated injuries: The patient sustained injury to the head. Severity of symptoms: At their worst the symptoms were mild, in the emergency department the symptoms have improved, moderately. Historical: - Allergies: 07:23 No Known Allergies; tw2 - Home Meds: 07:53 glipizide 5 mg Oral tab [Active]; aspirin 81 mg oral TbEC [Active]; atorvastatin 20 mg tw2 oral tab 1 tab once daily [Active]; Risperdal 4 mg Oral tab [Active]; finasteride 5 mg Oral tab [Active]; metformin 1,000 mg Oral tr24 [Active]; citalopram 20 mg tab 1 tab [Active]; lisinopril 2.5 mg oral tab [Active]; metoprolol succinate 25 mg oral Tb24 [Active]; - PMHx: 07:23 Diabetes - IDDM; Hypertension; Pacemaker; stroke; tw2 - PSHx: 07:23 Heart stents; Knee surgery; tw2 - Immunization history:: Adult Immunizations unknown. - Immunization history: Last tetanus immunization: unknown. - Social history:: Smoking status: . ROS: 10:20 Constitutional: Negative for fever, chills, and weight loss, Eyes: Negative for injury, tess pain, redness, and discharge, ENT: Negative for injury, pain, and discharge, Neck: Negative for injury, pain, and swelling, Cardiovascular: Negative for chest pain, palpitations, and edema, Respiratory: Negative for shortness of breath, cough, wheezing, and pleuritic chest pain, Abdomen/GI: Negative for abdominal pain, nausea, vomiting, diarrhea, and constipation, Back: Negative for injury and pain, : Negative for injury, bleeding, discharge, and swelling, MS/Extremity: Negative for injury and deformity, Psych: Negative for depression, anxiety, suicide ideation, homicidal ideation, and hallucinations, Allergy/Immunology: Negative for hives, rash, and allergies, Endocrine: Negative for neck swelling, polydipsia, polyuria, polyphagia, and marked weight changes, Hematologic/Lymphatic: Negative for swollen nodes, abnormal bleeding, and unusual bruising. 10:20 Skin: Positive for laceration(s). Exam: 10:20 Constitutional: This is a well developed, well nourished patient who is awake, alert, tess and in no acute distress. Eyes: Pupils equal round and reactive to light, extra-ocular motions intact. Lids and lashes normal. Conjunctiva and sclera are non-icteric and not injected. Cornea within normal limits. Periorbital areas with no swelling, redness, or edema. ENT: Nares patent. No nasal discharge, no septal abnormalities noted. Tympanic membranes are normal and external auditory canals are clear. Oropharynx with no redness, swelling, or masses, exudates, or evidence of obstruction, uvula midline. Mucous membranes moist. Neck: Trachea midline, no thyromegaly or masses palpated, and no cervical lymphadenopathy. Supple, full range of motion without nuchal rigidity, or vertebral point tenderness. No Meningismus. Chest/axilla: Normal chest wall appearance and motion. Nontender with no deformity. No lesions are appreciated. Cardiovascular: Regular rate and rhythm with a normal S1 and S2. No gallops, murmurs, or rubs. Normal PMI, no JVD. No pulse deficits. Respiratory: Lungs have equal breath sounds bilaterally, clear to auscultation and percussion. No rales, rhonchi or wheezes noted. No increased work of breathing, no retractions or nasal flaring. Abdomen/GI: Soft, non-tender, with normal bowel sounds. No distension or tympany. No guarding or rebound. No evidence of tenderness throughout. Back: No spinal tenderness. No costovertebral tenderness. Full range of motion. MS/ Extremity: Pulses equal, no cyanosis. Neurovascular intact. Full, normal range of motion. Neuro: Awake and alert, GCS 15, oriented to person, place, time, and situation. Cranial nerves II-XII grossly intact. Motor strength 5/5 in all extremities. Sensory grossly intact. Cerebellar exam normal. Normal gait. Psych: Awake, alert, with orientation to person, place and time. Behavior, mood, and affect are within normal limits. 10:20 Skin: injury, laceration(s), the wound is approximately 2.5 cm(s), with a depth of .25 cm(s), of the forehead, right eye and left eye. 10:28 ECG was reviewed by the Attending Physician. tess Vital Signs: 07:23 BP 107 / 55; Pulse 71; Resp 13; Temp 97.7(O); Pulse Ox 98% on R/A; Weight 65.77 kg (R); tw2 Height 5 ft. 9 in. (175.26 cm); Pain 0/10; 08:18 BP 132 / 67; Pulse 72; Resp 14; Pulse Ox 99% on R/A; tw2 08:58 BP 119 / 62; Pulse 68; Resp 16; Pulse Ox 97% on R/A; tw2 10:12 BP 131 / 70; Pulse 72; Resp 17; Temp 97.4(TE); Pulse Ox 100% on R/A; mh5 11:15 BP 126 / 62; Pulse 61; Resp 17; Pulse Ox 100% on R/A; tw2 11:55 BP 130 / 78; Pulse 76; Resp 16; Pulse Ox 100% on R/A; tw2 12:24 BP 135 / 79; Pulse 73; Resp 15; Pulse Ox 100% on R/A; tw2 07:23 Body Mass Index 21.41 (65.77 kg, 175.26 cm) tw2 [place] Coma Score: 07:21 Eye Response: spontaneous(4). Verbal Response: oriented(5). Motor Response: obeys tw2 commands(6). Total: 15. Trauma Score (Adult): 07:21 Eye Response: spontaneous(1); Verbal Response: oriented(1); Motor Response: obeys tw2 commands(2); Systolic BP: > 89 mm Hg(4); Respiratory Rate: 10 to 29 per min(4); [place] Score: 15; Trauma Score: 12 Laceration: 10:23 Wound Repair of 2.5cm ( 1.0in ) subcutaneous laceration to face and forehead. tess Irregularly shaped.. Distal neuro/vascular/tendon intact. Anesthesia: Local anesthetic administered with 5 mls of 1% lidocaine. Wound prep: Moderate cleansing by me. Skin closed with 4 5-0 Prolene using interrupted sutures and sterile technique. Dressed with Neosporin. Patient tolerated well. MDM: 07:22 Patient medically screened. [facility] 10:22 Differential Diagnosis altered mental status. Differential diagnosis: closed head tess injury, contusion, fracture. Data reviewed: vital signs, nurses notes, lab test result(s), EKG, radiologic studies, CT scan, plain films. Data interpreted: panel monitor: rate is 72 beats/min, rhythm is paced rhythm Pulse oximetry: on room air is 100 %. Test interpretation: by ED physician or midlevel provider: ECG, plain radiologic studies. Counseling: I had a detailed discussion with the patient and/or guardian regarding: the historical points, exam findings, and any diagnostic results supporting the discharge/admit diagnosis, lab results, radiology results, the need for further work-up and treatment in the hospital. 04/06 07:23 Order name: Basic Metabolic Panel; Complete Time: 10:18 [facility] 04/06 07:23 Order name: CBC with Diff; Complete Time: 10:18 [facility] 04/06 07:23 Order name: LFT's; Complete Time: 10:18 [facility] 04/06 07:23 Order name: Magnesium; Complete Time: 10:18 [facility] 04/06 07:23 Order name: NT PRO-BNP; Complete Time: 10:18 [facility] 04/06 07:23 Order name: PT-INR; Complete Time: 10:18 [facility] 04/06 07:23 Order name: Troponin (emerg Dept Use Only); Complete Time: 10:18 [facility] 04/06 07:23 Order name: XRAY Chest (1 view); Complete Time: 10:18 [facility] 04/06 07:23 Order name: CT Head C Spine; Complete Time: 10:18 [facility] 04/06 09:11 Order name: Urine Dipstick--Ancillary (enter results) em1 04/06 09:12 Order name: Urine Dipstick-Ancillary; Complete Time: 10:18 EDMO 04/06 07:23 Order name: EKG; Complete Time: 07:24 [facility] 04/06 07:23 Order name: Cardiac monitoring; Complete Time: 07:30 [facility] 04/06 07:23 Order name: EKG - Nurse/Tech; Complete Time: 08:20 [facility] 04/06 07:23 Order name: IV Saline Lock; Complete Time: 07:59 [facility] 04/06 07:23 Order name: Labs collected and sent; Complete Time: 07:30 [facility] 04/06 07:23 Order name: O2 Per Protocol; Complete Time: 07:30 [facility] 04/06 07:23 Order name: O2 Sat Monitoring; Complete Time: 07:30 [facility] 04/06 07:23 Order name: Urine Dipstick-Ancillary (obtain specimen); Complete Time: 09:10 [facility] 04/06 07:58 Order name: Prolene, Sutures; Complete Time: 07:59 04/06 07:58 Order name: Dressing - Wound; Complete Time: 08:15 04/06 07:58 Order name: Gloves, Sterile; Complete Time: 07:59 04/06 07:58 Order name: Setup Suture Tray; Complete Time: 07:59 EC:28 Rate is 74 beats/min. Rhythm is regular. QRS [place] is Normal. SD interval is normal. QRS tess interval is normal. QT interval is normal. No Q waves. T waves are Normal. No ST changes noted. Interpreted by me. Reviewed by me. Administered Medications: 07:52 Drug: NS 0.9% 500 ml Route: IV; Rate: bolus; Site: right forearm; tw2 08:19 Follow up: Response: No adverse reaction; IV Status: Completed infusion; IV Intake: tw2 500ml 07:59 Drug: Lidocaine (1 %) 5 ml {Note: by Dr. Mirza.} Volume: 5 ml; Route: Infiltration; 2 08:05 Drug: Tetanus-Diphtheria Toxoid Adult 0.5 ml {[employer]: [employer]. Exp: 08/08/2021. Lot #: [id number]. } Route: IM; Site: right deltoid; 08:19 Follow up: Response: No adverse reaction tw2 08:19 Drug: NS 0.9% 1000 ml Route: IV; Rate: 125 ml/hr; Site: right forearm; tw2 12:25 Follow up: IV Status: Infusion continued upon admission tw2 10:34 Drug: Magnesium Sulfate 1 grams Route: IVPB; Infused Over: 1 hrs; Site: right forearm; tw2 11:30 Follow up: Response: No adverse reaction; IV Status: Completed infusion tw2 Disposition: 04/06/20 10:25 Hospitalization ordered by Skip De La Paz for Observation. Preliminary diagnosis are Fall due to bumping against object, Hypotension, Laceration without foreign body of other part of head - forehead, Hypomagnesemia, Unspecified kidney failure - acute on chronic, Dehydration. - Bed requested for Telemetry/MedSurg (observation). - Status is Observation. tw2 - Condition is Stable. - Problem is new. - Symptoms have improved. Signatures: Dispatcher [employer] Clara Buenrostro RN RN dw Anderson, Corey, MD MD cha Wise, Tara, RN RN tw2 Corrections: (The following items were deleted from the chart) 10:26 10:25 Hospitalization Ordered by Skip De La Paz DO for Observation. Preliminary tess diagnosis is Fall due to bumping against object; Hypotension; Laceration without foreign body of other part of head - forehead; Hypomagnesemia. Bed requested for Telemetry/MedSurg (observation). Status is Observation. Condition is Stable. Problem is new. Symptoms have improved. tess 12:07 10:26 04/06/2020 10:25 Hospitalization Ordered by Skip De La Paz DO for Observation. dw Preliminary diagnosis is Fall due to bumping against object; Hypotension; Laceration without foreign body of other part of head - forehead; Hypomagnesemia; Unspecified kidney failure - acute on chronic; Dehydration. Bed requested for Telemetry/MedSurg (observation). Status is Observation. Condition is Stable. Problem is new. Symptoms have improved. tess 12:38 12:07 04/06/2020 10:25 Hospitalization Ordered by Skip De La Paz DO for Observation. tw2 Preliminary diagnosis is Fall due to bumping against object; Hypotension; Laceration without foreign body of other part of head - forehead; Hypomagnesemia; Unspecified kidney failure - acute on chronic; Dehydration. Bed requested for Telemetry/MedSurg (observation). Status is Observation. Condition is Stable. Problem is new. Symptoms have improved. dw
--- NOTE | 2020-04-06 10:27 | ER ---
Nurse's Notes [facility] Name: Omar Norris Age: 79 yrs Sex: Male : 1940 Arrival Date: 04/06/2020 Time: 07:20 Bed 16 Private MD: Diagnosis: Fall due to bumping against object;Hypotension;Laceration without foreign body of other part of head-forehead;Hypomagnesemia;Unspecified kidney failure-acute on chronic;Dehydration Presentation: 04/06 07:21 Care prior to arrival: Medication(s) given: Normal saline infusion, 400 ml IV tw2 initiated. 20 GA, in the right forearm. Mechanism of Injury: Fall from standing position. Trauma event details: Injury occurred in the [facility]. 07:23 Chief complaint: EMS states: pt lives at [facility] assisted living side, was tw2 standing next to his closet fell back wards, hit his right elbow on the door frame, skin tear noted to right elbow/forearm, then fell forward hitting his forehead, laceration noted near bridge of nose near left eye, we gave a 400 ns bolus. Coronavirus screen: At this time, the client does not indicate any symptoms associated with coronavirus-19. Ebola Screen: Patient denies travel to an Ebola-affected area in the 21 days before illness onset. Initial Sepsis Screen: Does the patient meet any 2 criteria? No. Patient's initial sepsis screen is negative. Does the patient have a suspected source of infection? No. Patient's initial sepsis screen is negative. Risk Assessment: Do you want to hurt yourself or someone else? Patient reports no desire to harm self or others. Onset of symptoms was April 06, 2020. 07:23 Method Of Arrival: EMS: [facility] tw2 07:23 Acuity: TANIA 3 tw2 Triage Assessment: 07:27 General: Appears in no apparent distress. slender, well groomed, Behavior is calm, tw2 cooperative, appropriate for age. Pain: Denies pain. Injury Description: Laceration sustained to forehead and left side of forehead and skin tear noted to right elbow/forearm. Trauma Activation: Alert Physician: ED Physician; Name: ; Notified At: ; Arrived At: Physician: General Surgeon; Name: ; Notified At: ; Arrived At: Physician: Radiology; Name: ; Notified At: ; Arrived At: Physician: Respiratory; Name: ; Notified At: ; Arrived At: Physician: Lab; Name: ; Notified At: ; Arrived At: Historical: - Allergies: 07:23 No Known Allergies; tw2 - Home Meds: 07:53 glipizide 5 mg Oral tab [Active]; aspirin 81 mg oral TbEC [Active]; atorvastatin 20 mg tw2 oral tab 1 tab once daily [Active]; Risperdal 4 mg Oral tab [Active]; finasteride 5 mg Oral tab [Active]; metformin 1,000 mg Oral tr24 [Active]; citalopram 20 mg tab 1 tab [Active]; lisinopril 2.5 mg oral tab [Active]; metoprolol succinate 25 mg oral Tb24 [Active]; - PMHx: 07:23 Diabetes - IDDM; Hypertension; Pacemaker; stroke; tw2 - PSHx: 07:23 Heart stents; Knee surgery; tw2 - Immunization history:: Adult Immunizations unknown. - Immunization history: Last tetanus immunization: unknown. - Social history:: Smoking status: . Screenin:47 Abuse screen: Denies threats or abuse. Nutritional screening: No deficits noted. tw2 Tuberculosis screening: No symptoms or risk factors identified. Fall Risk Secondary diagnosis (15 points) impaired mobility. Primary Survey: 07:21 NO uncontrolled hemorrhage observed. A: The patient is alert. Airway: patent. tw2 Breathing/Chest: Respiratory pattern: regular, Respiratory effort: spontaneous, unlabored, Breath sounds: clear, bilaterally. Chest inspection: symmetrical rise and fall of the chest. Circulation: Cardiac rhythm: Heart tones present. Skin color: pink, Skin temperature: warm, dry. Disability Alert. Exposure/Environment: All clothing and personal items were removed. Forensic evidence collection is not deemed to be indicated at this time. Items placed in patient belonging bag. There is no evidence of uncontrolled external bleeding. Obvious injury(ies) are noted at this time: laceration noted to left side of forehead, abrasion and skintear noted to right forearm/elbow. 08:00 Reassessment Airway Airway Patent Breathing/Chest Respiratory pattern Regular tw2 Respiratory effort Spontaneous Unlabored Breath sounds Clear Chest inspection Symmetrical Circulation Heart rhythm Paced Heart tones Present Disability Alert. Secondary Survey: 07:21 HEENT: Face Other laceration noted to left side of forehead, minimal bleeding noted. tw2 Gastrointestinal: Abdomen is soft, flat, Bowel sounds present in all quadrants. : No signs and/or symptoms were reported regarding the genitourinary system. Musculoskeletal: Range of motion: intact in all extremities. Injury Description: Skin tears sustained to right arm . Assessment: 07:21 General: Appears in no apparent distress. slender, well groomed, Behavior is calm, tw2 cooperative, appropriate for age. Neuro: Level of Consciousness is awake, alert, obeys commands, confused, Oriented to person, place. 07:31 Reassessment: left message at [facility] for complete medication list. tw2 08:16 Reassessment: Patient appears in no apparent distress at this time. No changes from tw2 previously documented assessment. Patient and/or family updated on plan of care and expected duration. Pain level reassessed. 08:58 Reassessment: Patient appears in no apparent distress at this time. No changes from tw2 previously documented assessment. Patient and/or family updated on plan of care and expected duration. Pain level reassessed. 10:00 Reassessment: Patient appears in no apparent distress at this time. No changes from tw2 previously documented assessment. Patient and/or family updated on plan of care and expected duration. Pain level reassessed. 11:00 Reassessment: Patient appears in no apparent distress at this time. No changes from tw2 previously documented assessment. Patient and/or family updated on plan of care and expected duration. Pain level reassessed. 11:56 Reassessment: Patient appears in no apparent distress at this time. No changes from tw2 previously documented assessment. Patient and/or family updated on plan of care and expected duration. Pain level reassessed. 12:25 Reassessment: Patient appears in no apparent distress at this time. No changes from tw2 previously documented assessment. Patient and/or family updated on plan of care and expected duration. Pain level reassessed. 12:47 EENT: No signs and/or symptoms were reported regarding the EENT system. Cardiovascular: tw2 Heart tones S1 S2 Patient's skin is warm and dry. Respiratory: Airway is patent Respiratory effort is even, unlabored, Respiratory pattern is regular, symmetrical, Breath sounds are clear bilaterally. GI: No signs and/or symptoms were reported involving the gastrointestinal system. Abdomen is flat, Bowel sounds present X 4 quads. : No signs and/or symptoms were reported regarding the genitourinary system. Musculoskeletal: Range of motion: intact in all extremities. Injury Description: see trauma template charting. Vital Signs: 07:23 BP 107 / 55; Pulse 71; Resp 13; Temp 97.7(O); Pulse Ox 98% on R/A; Weight 65.77 kg (R); tw2 Height 5 ft. 9 in. (175.26 cm); Pain 0/10; 08:18 BP 132 / 67; Pulse 72; Resp 14; Pulse Ox 99% on R/A; tw2 08:58 BP 119 / 62; Pulse 68; Resp 16; Pulse Ox 97% on R/A; tw2 10:12 BP 131 / 70; Pulse 72; Resp 17; Temp 97.4(TE); Pulse Ox 100% on R/A; mh5 11:15 BP 126 / 62; Pulse 61; Resp 17; Pulse Ox 100% on R/A; tw2 11:55 BP 130 / 78; Pulse 76; Resp 16; Pulse Ox 100% on R/A; tw2 12:24 BP 135 / 79; Pulse 73; Resp 15; Pulse Ox 100% on R/A; tw2 07:23 Body Mass Index 21.41 (65.77 kg, 175.26 cm) tw2 Amaris Coma Score: 07:21 Eye Response: spontaneous(4). Verbal Response: oriented(5). Motor Response: obeys tw2 commands(6). Total: 15. Trauma Score (Adult): 07:21 Eye Response: spontaneous(1); Verbal Response: oriented(1); Motor Response: obeys tw2 commands(2); Systolic BP: > 89 mm Hg(4); Respiratory Rate: 10 to 29 per min(4); Amaris Score: 15; Trauma Score: 12 ED Course: 07:20 Patient arrived in ED. tw2 07:21 Placed in gown. Bed in low position. Side rails up X2. airplane gas tank liner assembler on. Pulse ox on. tw2 NIBP on. Warm blanket given. 07:21 Patient maintains SpO2 saturation greater than 95% on room air. Thermoregulation: warm tw2 blanket given to patient. 07:22 Jose Carlos Mirza MD is Attending Physician. [facility] 07:27 Triage completed. tw2 07:27 Arm band placed on. tw2 07:31 Jinny Blackwell, JARAD is Primary Nurse. tw2 07:35 CT Head C Spine In Process Unspecified. EDMS 07:46 XRAY Chest (1 view) In Process Unspecified. EDMS 07:59 Maintain EMS IV. Dressing intact. Good blood return noted. Site clean \T\ dry. Gauge \T\ tw 2 site: 20 g RIGHT forearm. 08:00 Assist provider with laceration repair on left side of forehead that was 2.5 cm. or tw2 less using sutures. Set up tray. Performed by Jose Carlos Mirza MD Patient tolerated well. 08:18 Initial lab(s) drawn, by ED staff, sent to lab. EKG done, by ED staff, reviewed by 5 Jose Carlos Mirza MD. 09:11 Urine collected: clean catch specimen, clear. [facility] 10:24 Skip De La Paz DO is Hospitalizing Provider. [facility] 12:24 Patient admitted, IV remains in place. tw2 Administered Medications: 07:52 Drug: NS 0.9% 500 ml Route: IV; Rate: bolus; Site: right forearm; tw2 08:19 Follow up: Response: No adverse reaction; IV Status: Completed infusion; IV Intake: tw2 500ml 07:59 Drug: Lidocaine (1 %) 5 ml {Note: by Dr. Mirza.} Volume: 5 ml; Route: Infiltration; tw2 08:05 Drug: Tetanus-Diphtheria Toxoid Adult 0.5 ml {Supervisor Chassis Assembly: [employer]. Exp: tw2 08/08/2021. Lot #: [id number]. } Route: IM; Site: right deltoid; 08:19 Follow up: Response: No adverse reaction tw2 08:19 Drug: NS 0.9% 1000 ml Route: IV; Rate: 125 ml/hr; Site: right forearm; tw2 12:25 Follow up: IV Status: Infusion continued upon admission tw2 10:34 Drug: Magnesium Sulfate 1 grams Route: IVPB; Infused Over: 1 hrs; Site: right forearm; tw2 11:30 Follow up: Response: No adverse reaction; IV Status: Completed infusion tw2 Intake: 08:19 IV: 500ml; Total: 500ml. tw2 Output: 11:54 Urine: 400ml (Voided); Total: 400ml. tw2 Outcome: 10:25 Decision to Hospitalize by Provider. tess 11:56 Patient's length of stay in the Emergency Department was greater than 2 hours. d/t tw2 decision to hospitalizePatient's length of stay extended due to 12:24 Admitted to Med/surg accompanied by tech, via stretcher, room 215, with chart, Report tw2 called to JARAD Pinedo 12:24 Condition: stable 12:24 Instructed on the need for admit. 12:38 Patient left the ED. tw2 Signatures: Dispatcher [employer] Jose Carlos Landrum MD MD cha Wise, Tara RN RN tw2 Marce Key [facility] Corrections: (The following items were deleted from the chart) 12:48 07:21 Neuro: Level of Consciousness is awake, alert, obeys commands, Oriented to tw2 person, place, tw2
[2020-04-06] MEDS ORDERED: MAGNESIUM SULFATE 1 gm IVPB 1 GM/100 ML BAG IV ONE (10:44)
[2020-04-06] MEDS: INSULIN -REGULAR HUMAN 50 UNIT/0.5 ML ML SQ SCH ×3 (12:48→21:00)
[2020-04-06] MEDS ORDERED: ACETAMINOPHEN 500 MG TAB PO PRN (12:48)
[2020-04-06] MEDS ORDERED: ONDANSETRON 4 MG/2 ML VIAL IV PRN (12:48)
[2020-04-06] MEDS ORDERED: NA CHLORIDE 0.9% 1,000 ML IV SCH (12:48)
[2020-04-06 14:50] LABS: CKMB Creatine Kinase MB 4.1 ng/mL (0.3-3.6); Creatine Phosphokinase 93 U/L (39-308); Troponin I < 0.02 ng/mL (0.0-0.045)
--- NOTE | 2020-04-06 15:07 | P.HP ---
Certification for Inpatient Patient admitted to: Observation With expected LOS: <2 Midnights Patient will require the following post-hospital care: Home Health Services Practitioner: I am a practitioner with admitting privileges, knowledge of patient current condition, hospital course, and medical plan of care. Services: Services provided to patient in accordance with Admission requirements found in Title 42 Section 412.3 of the Code of Federal Regulations Patient History Date of Service: 04/06/20 Primary Care Provider: [facility] patient Reason for admission: Fall History of Present Illness: 79-year-old male with history of hypertension, diabetes, BPH. Patient presented to the emergency room after he was sent from the halfway after a fall. Patient suffered laceration to the mid forehead area. Patient reports this occurred after his blood sugar was low. ER reports blood pressure was low as reported by the halfway. Patient denied any syncope. Patient denied any chest pain, shortness of breath or headaches. No dizziness noted. In the ER and laceration was repaired. Blood pressure stable. Patient appears slightly dehydrated. White count 8.7, hemoglobin 13. BUN of 25, creatinine 1.16 with a GFR 61. Glucose 123. CT head unremarkable, shows prior CVA. Patient admitted for observation. When I saw the patient ER, patient appeared comfortable. Patient with underlying dementia. Allergies No Known Allergies Allergy (Verified 12/08/19 19:56) Home medications list reviewed: Yes Home Medications: Atorvastatin Calcium [Lipitor*] 40 mg PO BEDTIME 30 Days #0 tab 12/13/19 Citalopram [Celexa*] 20 mg PO DAILY tablet 12/13/19 Clopidogrel Bisulfate [Plavix*] 75 mg PO DAILY tablet 12/13/19 Finasteride [Proscar*] 5 mg PO DAILY tab 12/13/19 Folic Acid 1 mg PO DAILY #30 tablet 12/13/19 Insulin -Regular Human [Novolin -R*] See Protocol SQ ACHS #0 ml 12/13/19 Insulin Glargine Human [Lantus*] 10 units SQ BEDTIME ml 12/13/19 Melatonin 5 mg PO BEDTIME #0 tablet 12/13/19 lisinopriL [Prinivil*] 5 mg PO DAILY 30 Days #0 tab 12/13/19 risperiDONE [Risperdal 1 mg tab*] 2 mg PO BEDTIME tab 12/13/19 - Past Medical/Surgical History Has patient received pneumonia vaccine in the past: Yes Diabetic: Yes -: Hypertension -: Diabetes mellitus type 2 -: BPH -: 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 -: Hyperlipidemia -: History of CVA -: Pacemaker insertion- October 2019 -: CABG Psychosocial/ Personal History: Patient lives at halfway - Family History Family History: Reviewed- Non-Contributory - Family History Mother Notes: Son unsure of grandmothers medical history Father Notes: Son unsure of Grandfathers medical history - Social History Smoking Status: Never smoker Alcohol use: No CD- Drugs: No Caffeine use: Yes Place of Residence: Shelter Review of Systems General: As per HPI Eyes: As per HPI ENT: Unremarkable Respiratory: Unremarkable Cardiovascular: Light Headedness Gastrointestinal: Unremarkable Genitourinary: Unremarkable Musculoskeletal: Unremarkable Integumentary: Unremarkable Neurological: Unremarkable Lymphatics: Unremarkable Physical Examination - Vital Signs Temperature: 97.4 F Blood Pressure: 163/72 Pulse: 68 Respirations: 16 Pulse Ox (%): 100 - Physical Exam General: Alert, In no apparent distress, Oriented x3, Cooperative HEENT: Atraumatic, Other (Laceration repair noted to the mid forehead region between the eyebrows.) Neck: Supple Respiratory: Clear to auscultation bilaterally, Normal air movement Cardiovascular: Normal pulses, Regular rate/rhythm Gastrointestinal: Normal bowel sounds, Soft and benign, Non-distended Musculoskeletal: No erythema, No tenderness, No warmth Integumentary: No erythema, No warmth, No cyanosis Neurological: Normal speech, Normal strength at 5/5 x4 extr, Normal tone, Dementia (Mild dementia noted) - Studies Laboratory Data (last 24 hrs) 04/06/20 07:52: PT 11.7, INR 0.99 04/06/20 07:52: WBC 10.3, Hgb 12.4 L, Hct 35.5 L, Plt Count 184 04/06/20 07:52: Sodium 133 L, Potassium 4.6, BUN 20 H, Creatinine 1.41 H, Glucose 170 H, Magnesium 1.5 L, Total Bilirubin 0.9, AST 14 L, ALT 21, Alkaline Phosphatase 57 Assessment and Plan - Plan Impression: Fall now with laceration to the forehead Diabetes mellitus type 2 with possible hypoglycemia Hypertension with likely overmedication Acute renal injury likely dehydration BPH History of CVA Hyperlipidemia Vascular dementia Plan: Fall now with laceration to the forehead: This likely occurred after hypoglycemic episode of or low blood pressure. Patient slightly dehydrated. Will start IV fluids. Will need to obtain halfway medication to verify dosages. Will hold blood pressure medication and diabetic medication at this time. Medication adjustment will likely be required. Will monitor closely. Encourage oral intake. CT head unremarkable. Patient with prior history of CVA. Continue DVT prophylaxis-Lovenox. Laceration was repaired by ER physician. Case discussed with son. Advanced directives address in detail. Patient is do not resuscitate. Patient will go back to the halfway likely tomorrow if workup unremarkable. Advanced care planning-30 min. Diabetes mellitus type 2 with possible hypoglycemia: Will need to review home medications. Hold medication at this time. Provide sliding scale. May need to make adjustments if with episodes of hypoglycemia. Will check A1c. Hypertension with likely overmedication: Hold blood pressure medication. May need to make further adjustments. Acute renal injury likely dehydration: Continue IV fluids BPH: Will need to restart home medication. History of CVA: Provide aspirin. Continue DVT prophylaxis. Hyperlipidemia: Will need to restart home medication. Vascular dementia: Will physical therapy assess ambulation. Continue as above. Discharge Plan: Shelter Plan to discharge in: 24 Hours - Advance Directives Does patient have a Living Will: Yes Does patient have a Durable POA for Healthcare: No - Code Status/Comfort Care Code Status Assessed: Yes (Patient is do not resuscitate) Time Spent Managing Pts Care (In Minutes): 55
[2020-04-06] MEDS: NA CHLORIDE 0.9% 1,000 ML IV SCH (15:31)
[2020-04-06] MEDS: METOPROLOL TAR 25 MG TAB PO SCH (18:03)
[2020-04-06] MEDS: MELATONIN 3 MG TABLET PO SCH (20:03)
[2020-04-06] MEDS ORDERED: FLUTICASONE 50MCG NASAL SPRAY NAS SCH (21:00)
[2020-04-06 22:37] LABS: CKMB Creatine Kinase MB 3.4 ng/mL (0.3-3.6); Creatine Phosphokinase 117 U/L (39-308); Troponin I < 0.02 ng/mL (0.0-0.045)
[2020-04-07] MEDS: NA CHLORIDE 0.9% 1,000 ML IV SCH ×3 (01:08→17:18)
[2020-04-07 04:22] LABS: Absolute Lymphocytes (CBC) 1.6 K/uL (0.7-4.9); Basophils % 0.5 % (0-1.3); Hematocrit 32.7 % (39.6-49.0); Lymphocytes % 20.8 % (15.3-44.8); MPV 8.2 fL (7.6-11.3); RBC Red Blood Cell Count 3.81 M/uL (4.33-5.43)
[2020-04-07 04:54] LABS: Magnesium 1.8 mg/dL (1.8-2.4); Potassium 4.6 mmol/L (3.5-5.1); Thyroid Stimulating Hormone 1.72 uIU/mL (0.360-3.740)
[2020-04-07] MEDS: METOPROLOL TAR 25 MG TAB PO SCH (05:39)
[2020-04-07] MEDS ORDERED: NA CHLORIDE 0.9% 250 ML IV ONE (06:47)
--- NOTE | 2020-04-07 07:19 | P.PN ---
Subjective Date of Service: 04/07/20 Primary Care Provider: shelter patient Chief Complaint: Fall Subjective: Other (Improvement noted. Still with some mild dizziness. Patient had positive orthostatics this morning with blood pressures 136/63, 129/63, and 91/55.) Physical Examination - Vital Signs Temperature: 97.8 F Blood Pressure: 91/55 Pulse: 70 Respirations: 18 Pulse Ox (%): 95 - Physical Exam General: Alert, In no apparent distress, Cooperative, Demented Neck: Supple Respiratory: Clear to auscultation bilaterally, Normal air movement Cardiovascular: Normal pulses, Regular rate/rhythm Gastrointestinal: Normal bowel sounds, Soft and benign, Non-distended, No tenderness, No masses, No rebound, No guarding Musculoskeletal: No erythema, No tenderness, No warmth Integumentary: No tenderness/swelling, No erythema, No warmth, No cyanosis Neurological: Normal speech, Normal strength at 5/5 x4 extr, Normal tone, Dementia - Studies Laboratory Data (last 24 hrs) 04/06/20 07:52: PT 11.7, INR 0.99 04/06/20 07:52: WBC 10.3, Hgb 12.4 L, Hct 35.5 L, Plt Count 184 04/06/20 07:52: Sodium 133 L, Potassium 4.6, BUN 20 H, Creatinine 1.41 H, Glucose 170 H, Magnesium 1.5 L, Total Bilirubin 0.9, AST 14 L, ALT 21, Alkaline Phosphatase 57 Medications List Reviewed: Yes Assessment & Plan Discharge Plan: Home Plan to discharge in: 24 Hours Physician Review Additional Text: Impression: Fall now with laceration to the forehead complicated with orthostatic hypotension likely medication related and with acute renal injury Diabetes mellitus type 2 with possible hypoglycemia Hypertension with likely overmedication Acute renal injury likely dehydration BPH History of CVA Hyperlipidemia Vascular dementia Plan: Fall now with laceration to the forehead complicated with orthostatic hypotension likely medication related and with acute renal injury: Patient still had positive orthostatics changes this morning. Blood pressure 136/63, 129/63, 91/55. Will give IV fluid bolus. Discontinue blood pressure medication at this time. Increase IV fluids. Will continue to reassess. Renal function improved. Patient likely with mild dehydration. Still unsafe to be discharge today. Will continue to monitor closely. Recheck orthostatics this afternoon. If stable will consider discharge later today or likely tomorrow. CT head unremarkable. Patient on DVT prophylaxis. Will physical therapy assess ambulation. Sutures in place. Will discuss with perinatal social worker about returning back to the snf as above. Likely discharge back to the facility tomorrow. Diabetes mellitus type 2 with possible hypoglycemia: A1c 7.7. Medications reviewed. Discontinue glipizide. May need to decrease metformin at discharge. Will continue to monitor Accu-Cheks. Hypertension with orthostatics hypotension likely medication related and with acute renal injury likely dehydration: Patient still with orthostatic hypotension. Increase IV fluids. Will provide bolus. Discontinue metoprolol. Will recheck orthostatics today. Physical therapy to assess ambulation. Acute renal injury likely dehydration: This has improved. Medications have been adjusted. Continue as above. IV fluid bolus to be given. BPH: Medication restarted History of CVA: Continue aspirin. Continue DVT prophylaxis. Hyperlipidemia: Continue medication Vascular dementia: Physical therapy to assess ambulation. Time Spent Managing Pts Care (In Minutes): 55
--- NOTE | 2020-04-07 07:27 | EKG ---
Test Date: 2020-04-06 Test Time: 08:09:59 Cream Beater: FLORIAN MEASUREMENT RESULTS: Intervals: Rate: 74 ID: [id number] QRSD: 76 QT: 372 QTc: 412 Barton: P: 69 ID: [id number] QRS: 59 T: 80 INTERPRETIVE STATEMENTS: Electronic atrial pacemaker Anteroseptal infarct, age undetermined Abnormal ECG Compared to ECG 01/08/2020 20:03:39 No significant changes Electronically Signed On 04-07-20 07:24:33 TECHNICIAN ANATOMIC PATHOLOGY by Reinier Harper
[2020-04-07] MEDS ORDERED: MAGNESIUM SULFATE 1 gm IVPB 1 GM/100 ML BAG IV ONE (08:00)
[2020-04-07] MEDS ORDERED: HOME MED 1 EA UNK (Cholecalciferol (Vitamin D3) [Vitamin D3] 1 TAB) PO SCH (09:00)
[2020-04-07] MEDS ORDERED: MULTIVITAMIN PO SCH (09:00)
[2020-04-07] MEDS ORDERED: HOME MED 1 EA UNK (Risperidone [Risperdal] 2 MG) PO SCH (09:00)
[2020-04-07] MEDS ORDERED: HOME MED 1 EA UNK (Citalopram Hydrobromide [Citalopram Hbr] 1 TAB) PO SCH (09:00)
[2020-04-07] MEDS: INSULIN -REGULAR HUMAN 50 UNIT/0.5 ML ML SQ SCH ×4 (09:19→20:46)
[2020-04-07] MEDS: ASPIRIN EC 81 MG TAB PO SCH (09:23)
[2020-04-07] MEDS: RISPERIDONE 1 MG TABLET PO SCH (09:24)
[2020-04-07] MEDS: VITAMIN D 1000 UNIT TAB PO SCH (09:24)
[2020-04-07] MEDS: ATORVASTATIN 10 MG TAB PO SCH (09:24)
[2020-04-07] MEDS: FINASTERIDE 5 MG TAB PO SCH (09:24)
[2020-04-07] MEDS: CITALOPRAM 10 MG TABLET PO SCH (09:25)
[2020-04-07] MEDS: ENOXAPARIN 40 MG/0.4 ML SQ SCH (09:25)
[2020-04-07] MEDS: MULTIVITAMIN TAB PO SCH (09:25)
[2020-04-07] MEDS: MELATONIN 3 MG TABLET PO SCH (20:27)
[2020-04-08] MEDS: NA CHLORIDE 0.9% 1,000 ML IV SCH (02:39)
[2020-04-08] MEDS: INSULIN -REGULAR HUMAN 50 UNIT/0.5 ML ML SQ SCH (07:30)
--- NOTE | 2020-04-08 08:04 | P.DS ---
Admission Date: 04/07/20 Discharge Date: 04/08/20 Primary Care Provider: longterm patient Disposition: TRANSFER TO [facility] Discharge Condition: GOOD Reason for Admission: Fall Consultations: none Procedures: CT Head: COMPARISON: Neck Angio dated 12/08/2019; Head Brain Wo Cont dated 01/08/2020 TECHNIQUE: Axial 5 mm thick images of the head were obtained. Axial 2 mm thick images of the cervical spine were obtained with sagittal and coronal reconstruction images generated and reviewed. All CT scans are performed using dose optimization technique as appropriate and may include automated exposure control or mA/KV adjustment according to patient size. FINDINGS: CT HEAD WITHOUT CONTRAST: No acute hemorrhage, hydrocephalus or extra-axial collection is identified.Old infarct is seen in left parietooccipital region.No areas of brain edema or midline shift. Heavy vertebral atherosclerosis. The paranasal sinuses and mastoids are clear.The calvarium is intact. CT CERVICAL SPINE WITHOUT CONTRAST: No fracture or subluxation.Moderate multilevel cervical degenerative changes. Bony fusion of C2 and C3.No prevertebral soft tissues swelling is identified. IMPRESSION: No acute intracranial or cervical spine findings. Advanced cervical degenerative changes. Old infarct left parietooccipital region. 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 Patient presented to the emergency room after he was sent [facility] the [facility] after a fall. Patient suffered laceration to the mid forehead area. Patient reports this occurred after his blood sugar was low. ER reports blood pressure was low as reported by the [facility]. Patient denied any syncope. Patient denied any chest pain, shortness of breath or headaches. No dizziness noted. In the ER and laceration was repaired. Blood pressure stable. Patient appears slightly dehydrated. White count 8.7, hemoglobin 13. BUN of 25, creatinine 1.16 with a GFR 61. Glucose 123. CT head unremarkable, shows prior CVA. Patient admitted for observation. When I saw the patient ER, patient appeared comfortable. Patient with underlying dementia. Hospital Course: Patient presented with fall. Patient suffered laceration to the forehead. Patient was admitted for further evaluation. Fall was likely from orthostatic hypotension secondary to overmedication and dehydration. Patient takes lisinopril 2.5 mg daily along with metoprolol 25 mg daily. Both were discontinued. Patient has had episodes of low blood pressure at the [facility]. The patient also had acute renal injury from dehydration. The patient received IV fluids and blood pressure medication was discontinued. Physical therapy worked with the patient to ambulate. Orthostatics were monitored closely. Blood pressure now stable. Patient no longer orthostatic. At discharge will recommend to discontinue lisinopril and metoprolol. Recommend to monitor blood pressure daily. Recommend to maintain blood pressure less than 140-150 systolic. Consider adding blood pressure medication if blood pressure is consistently above 150 systolic. May need to keep blood pressures slightly elevated due to his history of orthostatic hypotension. This can be monitored closely at the [facility]. Recommend to remove sutures in 6 days. Patient with diabetes mellitus type 2 [id number]. Medications were held due to the possibility of hypoglycemia. Patient takes glipizide 5 mg daily and metformin 1000 mg daily. A1c 7.7. Blood sugars were stable during the course of his stay. At discharge will recommend to discontinue glipizide due to increase risk of hypoglycemia especially in the elderly. At discharge patient may continue with metformin 500 mg twice daily. Recommend to monitor blood sugar at least twice daily. Recommend to maintain blood sugars less than 200. May need to keep blood sugars slightly elevated due to risk of hypoglycemia. Maintain A1c less than 8. This can be further monitored and adjusted by his physician. As mentioned above patient with hypertension. Medications have been adjusted due to orthostatics hypotension and dehydration. Patient will no longer take lisinopril or metoprolol. Recommend to monitor blood pressure daily. Recommend to maintain blood pressure less than 140-150 systolic. If blood pressure remains above 150 consistently then blood pressure medication will need to be considered. This can be further addressed and monitored by his PCP. Patient with acute renal injury. This is likely from dehydration. This improved with IV fluids. Patient with BPH. This has remained stable. At discharge patient will continue with his current medication of finasteride 5 mg daily. Patient with depression, anxiety and dementia likely vascular. At discharge patient will continue with Celexa 20 mg daily and Risperdal 2 mg daily. Patient with hyperlipidemia. At discharge he may continue with Lipitor 10 mg daily. Patient with history of CVA in the past. CT scan revealed old left parietal occipital region CVA. Patient may continue with aspirin 81 mg daily. Vital Signs/Physical Exam: Temp Pulse Resp BP Pulse Ox 97.1 F 71 16 124/67 95 04/08/20 04:00 04/08/20 04:00 04/08/20 04:00 04/08/20 04:00 04/08/20 04:00 General: Alert, In no apparent distress, Oriented x3, Cooperative HEENT: Atraumatic Neck: Supple Respiratory: Clear to auscultation bilaterally, Normal air movement Cardiovascular: Normal pulses, Regular rate/rhythm Gastrointestinal: Normal bowel sounds, Soft and benign, Non-distended, No tenderness, No masses, No rebound, No guarding Musculoskeletal: No erythema, No tenderness, No warmth Integumentary: No tenderness/swelling, No erythema, No warmth, No cyanosis Neurological: Normal speech, Normal strength at 5/5 x4 extr, Normal tone, Normal affect Laboratory Data at Discharge: WBC 7.6 K/uL (4.3-10.9) D 04/07/20 03:58 Hgb 11.3 g/dL (13.6-17.9) L 04/07/20 03:58 Hct 32.7 % (39.6-49.0) L 04/07/20 03:58 Plt Count 183 K/uL (152-406) 04/07/20 03:58 PT 11.7 SECONDS (9.5-12.5) 04/06/20 07:52 INR 0.99 04/06/20 07:52 Sodium 137 mmol/L (136-145) 04/07/20 03:58 Potassium 4.6 mmol/L (3.5-5.1) 04/07/20 03:58 BUN 14 mg/dL (7-18) 04/07/20 03:58 Creatinine 0.86 mg/dL (0.55-1.3) 04/07/20 03:58 Glucose 151 mg/dL (74-106) H 04/07/20 03:58 Magnesium 1.8 mg/dL (1.8-2.4) 04/07/20 03:58 Total Bilirubin 0.9 mg/dL (0.2-1.0) 04/06/20 07:52 AST 14 U/L (15-37) L 04/06/20 07:52 ALT 21 U/L (12-78) 04/06/20 07:52 Alkaline Phosphatase 57 U/L (45-117) 04/06/20 07:52 Troponin I < 0.02 ng/mL (0.0-0.045) 04/06/20 21:55 Triglycerides 64 mg/dL (<150) 04/07/20 03:58 Cholesterol 104 mg/dL (<200) 04/07/20 03:58 HDL Cholesterol 55 mg/dL (40-60) 04/07/20 03:58 Cholesterol/HDL Ratio 1.89 04/07/20 03:58 Home Medications: Aspirin [Aspirin EC 81 MG] 1 tab PO DAILY 04/06/20 Atorvastatin Calcium 10 mg PO DAILY 04/06/20 Cholecalciferol (Vitamin D3) [Vitamin D3] 1 tab PO DAILY 04/06/20 Citalopram Hydrobromide [Citalopram HBr] 1 tab PO DAILY 04/06/20 Finasteride 5 mg PO DAILY 04/06/20 Fluticasone [Flonase 50MCG Nasal [place]*] 1 puff IH BEDTIME 04/06/20 Melatonin 1 tab PO BEDTIME 04/06/20 Multivitamin 1 tab PO DAILY 04/06/20 risperiDONE [Risperdal] 2 mg PO DAILY 04/06/20 Metformin HCl 500 mg PO BID #60 tablet 04/08/20 New Medications: Metformin HCl 500 mg PO BID #60 tablet Patient Discharge Instructions: 1. [facility] to [facility] the [facility]. Recommend follow up with PCP in 1 week to follow up this hospitalization. 2. Patient presented with fall. Patient suffered laceration to the forehead. Patient was admitted for further evaluation. Fall was likely from orthostatic hypotension secondary to overmedication and dehydration. Patient takes lisinopril 2.5 mg daily along with metoprolol 25 mg daily. Both were discontinued. Patient has had episodes of low blood pressure at the [facility]. The patient also had acute renal injury from dehydration. The patient received IV fluids and blood pressure medication was discontinued. Physical therapy worked with the patient to ambulate. Orthostatics were monitored closely. Blood pressure now stable. Patient no longer orthostatic. At discharge will recommend to discontinue lisinopril and metoprolol. Recommend to monitor blood pressure daily. Recommend to maintain blood pressure less than 140-150 systolic. Consider adding blood pressure medication if blood pressure is consistently above 150 systolic. May need to keep blood pressures slightly elevated due to his history of orthostatic hypotension. This can be monitored closely at the [facility]. Recommend to remove sutures in 6 days. 3. Patient with diabetes mellitus type 2 [id number]. Medications were held due to the possibility of hypoglycemia. Patient takes glipizide 5 mg daily and metformin 1000 mg daily. A1c 7.7. Blood sugars were stable during the course of his stay. At discharge will recommend to discontinue glipizide due to increase risk of hypoglycemia especially in the elderly. At discharge patient may continue with metformin 500 mg twice daily. Recommend to monitor blood sugar at least twice daily. Recommend to maintain blood sugars less than 200. May need to keep blood sugars slightly elevated due to risk of hypoglycemia. Maintain A1c less than 8. This can be further monitored and adjusted by his physician. 4. As mentioned above patient with hypertension. Medications have been adjusted due to orthostatics hypotension and dehydration. Patient will no longer take lisinopril or metoprolol. Recommend to monitor blood pressure daily. Recommend to maintain blood pressure less than 140-150 systolic. If blood pressure remains above 150 consistently then blood pressure medication will need to be considered. This can be further addressed and monitored by his PCP. 5. Patient with acute renal injury. This is likely from dehydration. This improved with IV fluids. 6. Patient with BPH. This has remained stable. At discharge patient will continue with his current medication of finasteride 5 mg daily. 7. Patient with depression, anxiety and dementia likely vascular. At discharge patient will continue with Celexa 20 mg daily and Risperdal 2 mg daily. 8. Patient with hyperlipidemia. At discharge he may continue with Lipitor 10 mg daily. 9. Patient with history of CVA in the past. CT scan revealed old left parietal occipital region CVA. Patient may continue with aspirin 81 mg daily. Diet: ADA Activity: Fall precautions Followup: Unknown,U [Primary Care Provider] - Time spent managing pt's care (in minutes): 55
[2020-04-08 08:36] VITALS: BP 174/81; TEMP 96.9
[2020-04-08] MEDS: ASPIRIN EC 81 MG TAB PO SCH (09:00)
[2020-04-08] MEDS: MULTIVITAMIN TAB PO SCH (09:00)
[2020-04-08] MEDS: ENOXAPARIN 40 MG/0.4 ML SQ SCH (09:00)
[2020-04-08] MEDS: VITAMIN D 1000 UNIT TAB PO SCH (09:01)
[2020-04-08] MEDS: RISPERIDONE 1 MG TABLET PO SCH (09:01)
[2020-04-08] MEDS: FINASTERIDE 5 MG TAB PO SCH (09:01)
[2020-04-08] MEDS: CITALOPRAM 10 MG TABLET PO SCH (09:01)
[2020-04-08] MEDS: ATORVASTATIN 10 MG TAB PO SCH (09:01)
[2020-04-08 10:58] VITALS: O2SAT 99
== END 2020-04-08 09:50 | disposition home health service (06) | DRG 605 ==
LOC: ER 07:18 → ERHOLD 11:23 → 2ND 12:26 → OBSVTOIN 04-07 08:12 → 2ND 04-07 17:49
PROVIDERS: ADMIT Family Medicine; ATTEND Family Medicine
DX: S01.81XA Laceration without foreign body of other part of head, initial encounter (principal); N17.9 Acute kidney failure, unspecified; I95.2 Hypotension due to drugs; E86.0 Dehydration; E11.649 Type 2 diabetes mellitus with hypoglycemia without coma; F01.50 Vascular dementia, unspecified severity, without behavioral disturbance, psychotic disturbance, mood disturbance, and anxiety; F32.9 Major depressive disorder, single episode, unspecified; F41.9 Anxiety disorder, unspecified; E78.5 Hyperlipidemia, unspecified; I12.9 Hypertensive chronic kidney disease with stage 1 through stage 4 chronic kidney disease, or unspecified chronic kidney disease; N18.9 Chronic kidney disease, unspecified; E11.22 Type 2 diabetes mellitus with diabetic chronic kidney disease; N40.0 Benign prostatic hyperplasia without lower urinary tract symptoms; E83.42 Hypomagnesemia; T46.4X5A Adverse effect of angiotensin-converting-enzyme inhibitors, initial encounter; T44.7X5A Adverse effect of beta-adrenoreceptor antagonists, initial encounter; W18.00XA Striking against unspecified object with subsequent fall, initial encounter; Z66 Do not resuscitate; Z79.82 Long term (current) use of aspirin; Z79.899 Other long term (current) drug therapy; Z95.0 Presence of cardiac pacemaker; Z86.73 Personal history of transient ischemic attack (TIA), and cerebral infarction without residual deficits; Z95.5 Presence of coronary angioplasty implant and graft; Z79.02 Long term (current) use of antithrombotics/antiplatelets; Z79.4 Long term (current) use of insulin
CPT/HCPCS: 36415; 70450; 71045; 72125; 80048; 80061; 80076; 81003; 82550; 82553; 82947; 83036; 83735; 83880; 84439; 84443; 84484; 85025; 85610; 90471; 90714; 93005; 96361; 96365; 97112; 97116; 97161; 97165; 97530; 99285; G0378; G0390; J1650; J3475; J7030; J7050; U0002

== ENCOUNTER 2021-08-28 06:13 | Inpatient (IN) | payer OTHER ==
[2021-08-28] MEDS ORDERED: NA CHLORIDE 0.9% 500 ML ONE ×2 (07:37→10:52)
[2021-08-28 08:00] LABS: Absolute Lymphocytes (CBC) 0.8 K/uL (0.7-4.9); Hematocrit 37.4 % (39.6-49.0); Lymphocytes % 9.3 % (15.3-44.8); MPV 8.6 fL (7.6-11.3)
[2021-08-28 08:05] LABS: Protime INR 1.09
[2021-08-28 08:25] LABS: Albumin 3.5 g/dL (3.4-5.0); Bilirubin Direct 0.7 mg/dL (0-0.2); Bilirubin Total 1.7 mg/dL (0.2-1.0); Magnesium 1.8 mg/dL (1.8-2.4); Potassium 4.5 mmol/L (3.5-5.1); Protein, Total 6.8 g/dL (6.4-8.2)
--- NOTE | 2021-08-28 08:26 | RAD REPORT ---
EXAM DESCRIPTION: CT - Head C Spine Cap W Con - 08/28/2021 8:06 am CLINICAL HISTORY: Trauma, head and neck injury. Chest, abdomen and pelvis pain. fall out of bed, unknown duration, generalizd weakness COMPARISON: Head C Spine Mpr Wo Con dated 04/06/2020; Head Brain Wo Cont dated 01/08/2020 TECHNIQUE: CT head without contrast. CT cervical spine without contrast with coronal and sagittal reformatted images. CT chest, abdomen and pelvis with IV contrast (approximately 100 mL nonionic IV contrast) with hutton l and sagittal reformatted images of the spine. All CT scans are performed using dose optimization technique as appropriate and may include automated exposure control or mA/KV adjustment according to patient size. FINDINGS: CT HEAD WITHOUT CONTRAST: No intracranial hemorrhage, hydrocephalus or extra-axial fluid collection. Old left-sided parietal in farct. No areas of brain edema or midline shift. Heavy vertebral artery atherosclerosis. The paranasal sinuses and mastoids are clear. The calvarium is intact. CT CERVICAL SPINE WITHOUT CONTRAST: No fracture or subluxation. Advanced multilevel degenerative changes are present with postsurgical ch anges in the upper cervical spine. The prevertebral soft tissues are normal in thickness. CT CHEST, ABDOMEN, PELVIS WITH CONTRAST: The lungs are grossly clear.No pneumothorax or pericardial/pleural fluid. No evidence of intra-abdominal visceral injury, free fluid or free air. No concerning pelvic findings. No fractures. Moderate lower lumbar degenerative changes. IMPRESSION: Negative for acute traumatic findings.
[2021-08-28 10:58] LABS: Urine Blood Negative (Negative); Urine Glucose 2+ (Negative); Urine Protein Negative (Negative); Urine Specific Gravity 1.015 (1.005-1.030); Urine pH 5.5 (5.0-7.0)
[2021-08-28 11:12] LABS: Urine RBC <5 /HPF (NONE SEEN)
[2021-08-28 11:13] LABS: Urine Bacteria LOADED /HPF (NONE SEEN); Urine Mucus 1+ /HPF (NONE SEEN)
--- NOTE | 2021-08-28 11:17 | RAD REPORT ---
EXAM DESCRIPTION: US - Abdomen Exam Limited - 08/28/2021 10:39 am CLINICAL HISTORY: elevated LFTs COMPARISON: No comparisons FINDINGS: The gallbladder is absent. The common bile duct is normal measuring 4 mm. The liver demonstrates suspected fatty liver. IMPRESSION: Cholecystectomy without pathologic biliary dilatation. Fatty liver likely present.
--- NOTE | 2021-08-28 11:22 | EDPHYS ---
Physician Documentation [facility] Name: Omar Norris Age: 81 yrs Sex: Male : 1940 Arrival Date: 08/28/2021 Time: 06:14 Bed 2 Private MD: ED Physician Ángel Marie HPI: 08/28 09:23 This 81 yrs old Male presents to ER via EMS with complaints of found on ground, rn possible fall. 09:23 Pt found on ground between bed and wall, he states he thinks fell out of bed but rn doesn't specifically recall what happened. Reports generalized weakness but no focal pain. Denies chest pain or abd pain. No vomiting/diarrhea. . Onset: The symptoms/episode began/occurred at an unknown time. Severity of symptoms: At their worst the symptoms were mild in the emergency department the symptoms are unchanged. It is unknown whether or not the patient has had similar symptoms in the past. It is unknown whether or not the patient has recently seen a physician. Historical: - Allergies: 07:25 No Known Allergies; bp - Home Meds: 07:25 aspirin 81 mg Oral TbEC [Active]; atorvastatin 20 mg Oral tab 1 tab once daily bp [Active]; citalopram 20 mg tab 1 tab [Active]; finasteride 5 mg Oral tab [Active]; glipizide 5 mg Oral tab [Active]; lisinopril 2.5 mg Oral tab [Active]; metformin 1,000 mg Oral tr24 [Active]; Risperdal 4 mg Oral tab [Active]; metoprolol succinate 25 mg Oral Tb24 [Active]; - PMHx: 07:25 stroke; Hypertension; Diabetes - IDDM; Pacemaker; bp - Immunization history:: Adult Immunizations up to date. - Social history:: Smoking status: Patient denies any tobacco usage or history of. - Family history:: not pertinent. - Hospitalizations: : No recent hospitalization is reported. ROS: 09:23 Constitutional: Negative for fever, chills, and weight loss, Eyes: Negative for injury, rn pain, redness, and discharge, Neck: Negative for injury, pain, and swelling, Cardiovascular: Negative for chest pain, palpitations, and edema, Respiratory: Negative for shortness of breath, cough, wheezing, and pleuritic chest pain, Abdomen/GI: Negative for abdominal pain, nausea, vomiting, diarrhea, and constipation, Back: Negative for injury and pain, MS/Extremity: Negative for injury and deformity, Skin: Negative for injury, rash, and discoloration, Neuro: Negative for headache, numbness, tingling, and seizure. Exam: 09:23 Constitutional: This is a well developed, well nourished patient who is awake, alert, rn and in no acute distress. Head/Face: + small areas of ecchymosis righ face, no laceration Eyes: Periorbital areas with no swelling, redness, or edema. ENT: + dry MM Neck: Trachea midline, no masses palpated, and no cervical lymphadenopathy. Supple, full range of motion without nuchal rigidity, or vertebral point tenderness. No Meningismus. Cardiovascular: Regular rate and rhythm. No pulse deficits. Respiratory: No increased work of breathing, no retractions or nasal flaring. Abdomen/GI: Soft, non-tender Back: No spinal tenderness. No costovertebral tenderness. Full range of motion. Skin: Warm, dry MS/ Extremity: Pulses equal, no cyanosis. Neurovascular intact. Full, normal range of motion. Equal circumference. Neuro: Awake, alert, GCS 15, oriented to person/place, not time. Moves all 4 extremities with equal strength and sensation. Vital Signs: 06:16 BP 123 / 66; Pulse 68; Resp 18; Temp 98.1(O); Pulse Ox 96% on R/A; Weight 69.4 kg; tw5 Height 5 ft. 9 in. (175.26 cm); Pain 0/10; 07:30 BP 146 / 73; Pulse 67; Resp 12; Pulse Ox 100% ; bp 10:00 BP 131 / 88; Pulse 67; Resp 12; Pulse Ox 100% ; bp 12:00 BP 134 / 84; Pulse 69; Resp 15; Pulse Ox 100% ; bp 13:00 BP 127 / 75; Pulse 80; Resp 12; Pulse Ox 100% ; bp 14:00 BP 138 / 104; Pulse 74; Resp 16; Pulse Ox 100% ; bp 14:56 BP 138 / 106; Pulse 68; Resp 15; Pulse Ox 100% ; bp 06:16 Body Mass Index 22.59 (69.40 kg, 175.26 cm) tw5 MDM: 07:14 Patient medically screened. rn 11:20 Differential Diagnosis altered mental status, sepsis, flu, fall, head injury, rn dehydration, UTI. Data reviewed: vital signs, nurses notes, lab test result(s), EKG, radiologic studies, CT scan, ultrasound, and as a result, I will. 11:21 Counseling: I had a detailed discussion with the patient and/or guardian regarding: the rn historical points, exam findings, and any diagnostic results supporting the discharge/admit diagnosis, lab results, radiology results, the need for further work-up and treatment in the hospital. Response to treatment: There is no appreciated change of the patient's symptoms at this time, and as a result, I will admit patient. Admission orders: after a detailed discussion of the patient's condition and case, the admit orders are written by me. 08/28 07:16 Order name: Basic Metabolic Panel; Complete Time: 10:45 08/28 07:16 Order name: CBC with Diff; Complete Time: 08:44 08/28 07:16 Order name: LFT's; Complete Time: 10:45 08/28 07:16 Order name: Urine Microscopic Only; Complete Time: 11:18 rn 08/28 07:16 Order name: Procalcitonin; Complete Time: 08:44 rn 08/28 07:16 Order name: Protime (+inr); Complete Time: 08:44 08/28 07:16 Order name: Ptt, Activated; Complete Time: 08:44 08/28 07:16 Order name: Magnesium; Complete Time: 10:45 08/28 09:18 Order name: LAB Add On eb 08/28 09:23 Order name: Creatine Phosphokinase; Complete Time: 10:45 EDOH 08/28 10:58 Order name: Urine Dipstick-Ancillary; Complete Time: 11:18 EDOH 08/28 11:16 Order name: Urine Culture EDOH 08/28 11:43 Order name: COVID-19 SARS RT PCR (Document "Date of Onset" if Symptomatic) 08/28 13:02 Order name: T4 Free EDOH 08/28 07:16 Order name: CT Traumagram (Head C Spine CAP W Con); Complete Time: 08:44 08/28 07:16 Order name: EKG; Complete Time: 07:17 rn 08/28 09:17 Order name: US Abdomen Limited; Complete Time: 11:18 rn 08/28 13:02 Order name: Physical Therapy Consult EDOH 08/28 13:02 Order name: Heart Healthy EDOH 08/28 13:02 Order name: Thyroid Stimulating Hormone EDOH 08/28 13:02 Order name: Urinalysis EDOH 08/28 13:02 Order name: Basic Metabolic Panel EDOH 08/28 13:02 Order name: Basic Metabolic Panel EDOH 08/28 13:02 Order name: CBC with Automated Diff EDOH 08/28 13:02 Order name: CBC with Automated Diff EDOH 08/28 13:02 Order name: Protime (+INR) EDOH 08/28 13:02 Order name: Protime (+INR) EDOH 08/28 07:16 Order name: Labs collected and sent; Complete Time: 07:44 rn 08/28 07:16 Order name: Urine Dipstick-Ancillary (obtain specimen); Complete Time: 10:59 rn 08/28 07:16 Order name: EKG - Nurse/Tech; Complete Time: 07:51 rn 08/28 13:10 Order name: 75g Consistent Carbohydrate (ADA 2200) EDOH Administered Medications: 07:44 Drug: NS 0.9% 500 ml Route: IV; Rate: bolus; Site: left antecubital; bp 14:57 Follow up: IV Status: Completed infusion; IV Intake: 500ml bp 10:55 Drug: NS 0.9% 500 ml Route: IV; Rate: bolus; Site: left forearm; bp 14:57 Follow up: IV Status: Completed infusion; IV Intake: 500ml bp 11:29 Drug: Rocephin (cefTRIAXone) 1 grams Route: IV; Rate: calculated rate; Site: left bp antecubital; 14:56 Follow up: IV Status: Completed infusion; IV Intake: 100ml bp Disposition Summary: 08/28/21 11:22 Hospitalization Ordered Hospitalization Status: Inpatient Admission rn Provider: Hari Ruano rn Location: Telemetry/[facility] (Inpatient) rn Condition: Stable rn Problem: new rn Symptoms: have improved rn Bed/Room Type: Standard rn Room Assignment: 228(08/28/21 14:41) eb Diagnosis - Altered mental status, unspecified rn - UTI/ Urinary tract infection, site not specified rn - Muscle weakness (generalized) rn - Dehydration rn Forms: - Medication Reconciliation Form rn - JEANAR form rn Signatures: Dispatcher [employer] EDÁngel Aguilar MD MD rn Peltier, Brian, RN RN bp Botello, Elizabeth eb Au-Stager, Heather, RN RN ha Corrections: (The following items were deleted from the chart) 09:26 09:23 Constitutional: This is a well developed, well nourished patient who is awake, rn alert, and in no acute distress. Head/Face: + small areas of ecchymosis righ face, no laceration Eyes: Periorbital areas with no swelling, redness, or edema. ENT: + dry MM Neck: Trachea midline, no masses palpated, and no cervical lymphadenopathy. Supple, full range of motion without nuchal rigidity, or vertebral point tenderness. No Meningismus. Cardiovascular: Regular rate and rhythm. No pulse deficits. Respiratory: No increased work of breathing, no retractions or nasal flaring. Abdomen/GI: Soft, non-tender Skin: Warm, dry MS/ Extremity: Pulses equal, no cyanosis. Neurovascular intact. Full, normal range of motion. Equal circumference. Neuro: Awake, alert, GCS 15, oriented to person/place, not time. Moves all 4 extremities with equal strength and sensation. rn 14:41 11:22 alexandre chavez
--- NOTE | 2021-08-28 11:22 | ER ---
Nurse's Notes [facility] Name: mOar Norris Age: 81 yrs Sex: Male : 1940 Arrival Date: 08/28/2021 Time: 06:14 Bed 2 Private MD: Diagnosis: Altered mental status, unspecified;UTI/ Urinary tract infection, site not specified;Muscle weakness (generalized);Dehydration Presentation: 08/28 06:16 Chief complaint: EMS states: "He came from [facility]. They last saw him at 1145. tw5 When they found them he was on the floor between the bed and the wall. We assume he had been down for a really long time. He has a small laceration to his stomach and an abrasion to his right knee and orthodoxy. His blood sugar was 274. ". Coronavirus screen: Vaccine status: At this time, the client does not indicate any symptoms associated with coronavirus-19. Ebola Screen: Patient negative for fever greater than or equal to 101.5 degrees Fahrenheit, and additional compatible Ebola Virus Disease symptoms Patient denies exposure to infectious person. Patient denies travel to an Ebola-affected area in the 21 days before illness onset. Initial Sepsis Screen: Does the patient meet any 2 criteria? No. Patient's initial sepsis screen is negative. Does the patient have a suspected source of infection? No. Patient's initial sepsis screen is negative. Risk Assessment: Do you want to hurt yourself or someone else? Patient reports no desire to harm self or others. Onset of symptoms is unknown. 06:16 Method Of Arrival: EMS: [facility] tw5 06:16 Acuity: TANIA 3 tw5 Triage Assessment: 06:16 General: Appears in no apparent distress. Behavior is calm, cooperative, appropriate tw5 for age. Pain: Denies pain. Historical: - Allergies: 07:25 No Known Allergies; bp - Home Meds: 07:25 aspirin 81 mg Oral TbEC [Active]; atorvastatin 20 mg Oral tab 1 tab once daily bp [Active]; citalopram 20 mg tab 1 tab [Active]; finasteride 5 mg Oral tab [Active]; glipizide 5 mg Oral tab [Active]; lisinopril 2.5 mg Oral tab [Active]; metformin 1,000 mg Oral tr24 [Active]; Risperdal 4 mg Oral tab [Active]; metoprolol succinate 25 mg Oral Tb24 [Active]; - PMHx: 07:25 stroke; Hypertension; Diabetes - IDDM; Pacemaker; bp - Immunization history:: Adult Immunizations up to date. - Social history:: Smoking status: Patient denies any tobacco usage or history of. - Family history:: not pertinent. - Hospitalizations: : No recent hospitalization is reported. Screenin:00 Abuse screen: Denies threats or abuse. Denies injuries from another. Nutritional bp screening: No deficits noted. 07:00 Tuberculosis screening: No symptoms or risk factors identified. Fall Risk Fall in past bp 12 months (25 points). Assessment: 07:00 General: RECD REPORT FROM LIONEL ABRAHAM. 81YO WM S/P FALL.. bp 09:00 Reassessment: No changes from previously documented assessment. Patient and/or family bp updated on plan of care and expected duration. Pain level reassessed. 10:00 Reassessment: No changes from previously documented assessment. Patient and/or family bp updated on plan of care and expected duration. Pain level reassessed. 10:36 Reassessment: U/S COMPLETE. bp 12:00 Reassessment: No changes from previously documented assessment. Patient and/or family bp updated on plan of care and expected duration. Pain level reassessed. ADMIT IN PROCESS. 13:00 Reassessment: No changes from previously documented assessment. Patient and/or family bp updated on plan of care and expected duration. Pain level reassessed. 14:55 Reassessment: ADMIT COMPLETE. REPORT TO AARON ABRAHAM FOR RM 228. bp Vital Signs: 06:16 BP 123 / 66; Pulse 68; Resp 18; Temp 98.1(O); Pulse Ox 96% on R/A; Weight 69.4 kg; tw5 Height 5 ft. 9 in. (175.26 cm); Pain 0/10; 07:30 BP 146 / 73; Pulse 67; Resp 12; Pulse Ox 100% ; bp 10:00 BP 131 / 88; Pulse 67; Resp 12; Pulse Ox 100% ; bp 12:00 BP 134 / 84; Pulse 69; Resp 15; Pulse Ox 100% ; bp 13:00 BP 127 / 75; Pulse 80; Resp 12; Pulse Ox 100% ; bp 14:00 BP 138 / 104; Pulse 74; Resp 16; Pulse Ox 100% ; bp 14:56 BP 138 / 106; Pulse 68; Resp 15; Pulse Ox 100% ; bp 06:16 Body Mass Index 22.59 (69.40 kg, 175.26 cm) tw5 ED Course: 06:14 Patient arrived in ED. cs9 06:16 Juan Katz MD is Attending Physician. mh7 06:16 Arm band placed on right wrist. Patient placed in an exam room, on a stretcher, on tw5 oxygen, on packing machine inspector, on pulse oximetry. 06:19 Triage completed. tw5 06:56 Lionel Wilks, RN is Primary Nurse. ke1 07:00 Patient has correct armband on for positive identification. Bed in low position. Call bp light in reach. Side rails up X2. 07:14 Attending Physician role handed off by Juan Katz MD rn 07:14 Ángel Marie MD is Attending Physician. rn 07:21 Primary Nurse role handed off by Lionel Wilks RN bp 07:21 Good Gibbs RN is Primary Nurse. bp 07:44 Inserted saline lock: 20 gauge in left antecubital area, using aseptic technique. Blood bp collected. 08:08 CT Traumagram (Head C Spine CAP W Con) In Process Unspecified. EDMS 08:29 EKG done, by ED staff, reviewed by Ángel Marie MD. jw7 08:30 Warm blanket given. jw7 10:41 US Abdomen Limited In Process Unspecified. EDMS 11:21 Hari Ruano MD is Hospitalizing Provider. rn 14:54 No provider procedures requiring assistance completed. Patient admitted, IV remains in bp place. Administered Medications: 07:44 Drug: NS 0.9% 500 ml Route: IV; Rate: bolus; Site: left antecubital; bp 14:57 Follow up: IV Status: Completed infusion; IV Intake: 500ml bp 10:55 Drug: NS 0.9% 500 ml Route: IV; Rate: bolus; Site: left forearm; bp 14:57 Follow up: IV Status: Completed infusion; IV Intake: 500ml bp 11:29 Drug: Rocephin (cefTRIAXone) 1 grams Route: IV; Rate: calculated rate; Site: left bp antecubital; 14:56 Follow up: IV Status: Completed infusion; IV Intake: 100ml bp Intake: 14:56 IV: 100ml; Total: 100ml. bp 14:57 IV: 500ml; Total: 600ml. bp 14:57 IV: 500ml; Total: 1100ml. bp Outcome: 11:22 Decision to Hospitalize by Provider. rn 14:54 Admitted to Med/surg accompanied by tech, via stretcher, room 228, with chart, Report bp called to AARON ABRAHAM 14:54 Condition: stable 14:54 Instructed on the need for admit. 15:19 Patient left the ED. bp Signatures: Dispatcher [employer] EDMS Ángel Marie MD MD rn Peltier, Brian RN RN Juan Devries MD MD [facility] Bertha Sadler 5 Lisa Weeks [facility] Dory Balderrama 7 Lionel Wilks, RN RN ke1
[2021-08-28] MEDS ORDERED: NA CHLORIDE 0.9% 100 ML IV ONE (11:25)
[2021-08-28] MEDS ORDERED: CEFTRIAXONE 1000 MG/VIAL ONE (11:25)
[2021-08-28] MEDS ORDERED: ACETAMINOPHEN 500 MG TAB PO PRN (12:54)
[2021-08-28] MEDS ORDERED: ONDANSETRON 4 MG/2 ML VIAL IV PRN (12:54)
[2021-08-28] MEDS ORDERED: HYDROCODONE/APAP 5/325 MG TAB PO PRN (12:59)
--- NOTE | 2021-08-28 13:19 | P.HP ---
Certification for Inpatient Patient admitted to: Inpatient With expected LOS: >2 Midnights Patient will require the following post-hospital care: None Practitioner: I am a practitioner with admitting privileges, knowledge of patient current condition, hospital course, and medical plan of care. Services: Services provided to patient in accordance with Admission requirements found in Title 42 Section 412.3 of the Code of Federal Regulations Patient History Date of Service: 08/28/21 Reason for admission: AMS, UTI History of Present Illness: Patient is an 81-year-old male with a past medical history significant for HLD, insomnia, hypertension, BPH, depression, DM 2, dementia, CVA who presents with complaint of altered mental status and bilateral lower extremity weakness. Patient currently alert and oriented x2. Patient is a resident of an assisted living facility. Patient reported that he fell yesterday due to weakness. Patient not sure if he rolled out of bed or how he fell. Patient denies hitting his head or losing consciousness. Patient denies any other signs and symptoms. Symptoms are aggravated or relieved by nothing. Patient was found on the floor and is unknown how long patient was on the floor. Patient was brought to the hospital for medical evaluation. Allergies No Known Allergies Allergy (Verified 12/08/19 19:56) Home Medications: Aspirin [Aspirin EC 81 MG] 1 tab PO DAILY 04/06/20 Atorvastatin Calcium 10 mg PO DAILY 04/06/20 Cholecalciferol (Vitamin D3) [Vitamin D3] 1 tab PO DAILY 04/06/20 Citalopram Hydrobromide [Citalopram HBr] 1 tab PO DAILY 04/06/20 Finasteride 5 mg PO DAILY 04/06/20 Fluticasone [Flonase 50MCG Nasal Pelzer*] 1 puff IH BEDTIME 04/06/20 Melatonin 1 tab PO BEDTIME 04/06/20 Multivitamin 1 tab PO DAILY 04/06/20 risperiDONE [Risperdal] 2 mg PO DAILY 04/06/20 Metformin HCl 500 mg PO BID #60 tablet 04/08/20 glipiZIDE [Glipizide] 5 mg PO DAILY #30 tablet 04/08/20 - Past Medical/Surgical History Diabetic: Yes -: Hypertension -: Diabetes mellitus type 2 -: BPH -: 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 -: Hyperlipidemia -: History of CVA -: Pacemaker insertion- October 2019 -: CABG Psychosocial/ Personal History: Patient lives at care home - Family History Mother Notes: Son unsure of grandmothers medical history Father Notes: Son unsure of Grandfathers medical history - Social History Alcohol use: No CD- Drugs: No Caffeine use: Yes Review of Systems General: Weakness Eyes: Unremarkable ENT: Unremarkable Respiratory: Unremarkable Cardiovascular: Unremarkable Gastrointestinal: Unremarkable Genitourinary: Unremarkable Musculoskeletal: Unremarkable Integumentary: Unremarkable Neurological: Weakness, Confusion Lymphatics: Unremarkable Physical Examination - Physical Exam General: Alert, Oriented x2, Demented HEENT: Normocephalic, PERRLA Neck: 2+ carotid pulse no bruit, JVD not distended Respiratory: Clear to auscultation bilaterally, Normal air movement Cardiovascular: No edema, Regular rate/rhythm Capillary refill: <2 Seconds Gastrointestinal: Normal bowel sounds Musculoskeletal: No clubbing, No swelling Integumentary: No rashes, No breakdown Neurological: Sensation intact, Normal affect, Dementia Lymphatics: No axilla or inguinal lymphadenopathy - Studies Laboratory Data (last 24 hrs) 08/28/21 07:40: PT 12.0, INR 1.09, APTT 30.8 08/28/21 07:40: WBC 8.4, Hgb 12.3 L, Hct 37.4 L, Plt Count 169 08/28/21 07:40: Sodium 135 L, Potassium 4.5, BUN 22 H, Creatinine 1.38 H, Glucose 232 H, Magnesium 1.8, Total Bilirubin 1.7 H, AST 369 H*, ALT 420 H*, Alkaline Phosphatase 194 H Assessment and Plan - Plan --UTI POA. Continue antibiotics. Urine culture pending. Continue supportive care --Acute encephalopathy. Likely secondary to UTI. Patient has a history of dementia. CT head negative. Continue supportive care. --Bilateral lower extremity weakness. CT head unremarkable for any acute intracranial abnormality. PT eval and treat. --Dementia. Baseline functions unknown. Continue supportive care. --DM2 with hyperglycemia. BS monitoring with sliding scale insulin. --HLD. Continue statin. --Insomnia. Continue home medications. --Hypertension. Stable. Continue home medications. --History of CVA\CAD\CABG. Continue aspirin and statin --BPH. Continue home medication. --Depression. Continue home medication. --Pacemaker presence. Telemetry. Continue supportive care. --Transaminitis. Unclear etiology. Abdominal ultrasound unremarkable. Will reassess LFTs in a.m. --DVT prophylaxis with heparin subQ Discharge Plan: Other (Assisted living facility) Plan to discharge in: 48 Hours - Advance Directives Does patient have a Living Will: Yes Does patient have a Durable POA for Healthcare: No - Code Status/Comfort Care Code Status Assessed: Yes Code Status: Full Code Physician Review: Patient Assessed, Agree with Above Assessment and Plan (We will) Critical Care: No
[2021-08-28 13:36] LABS: Thyroid Stimulating Hormone 2.64 uIU/mL (0.360-3.740)
[2021-08-28 19:32] VITALS: BMI 22.6
[2021-08-28] MEDS: MELATONIN 3 MG TABLET PO SCH (20:34)
[2021-08-28] MEDS: HEPARIN 5000 UNIT/ML 1 ML VIAL SQ SCH (20:34)
[2021-08-28] MEDS: HOME MED 1 EA UNK [FLUTICASONE 50MCG NASAL SPRAY] NAS SCH (20:35)
[2021-08-29] MEDS: NACHLORIDE 0.45% 1,000 ML IV SCH ×2 (02:50→10:20)
[2021-08-29 04:13] LABS: Hematocrit 31.4 % (39.6-49.0); Lymphocytes % 16.9 % (15.3-44.8); MPV 8.6 fL (7.6-11.3); Protime INR 1.21; RBC Red Blood Cell Count 3.65 M/uL (4.33-5.43)
[2021-08-29 04:40] LABS: ALT/SGPT 274 U/L (12-78); AST/SGOT 195 U/L (15-37); Albumin 2.9 g/dL (3.4-5.0); Alkaline Phosphatase 155 U/L (45-117); BUN Blood Urea Nitrogen 16 mg/dL (7-18); Bicarbonate 22 mmol/L (21-32); Bilirubin Direct 0.4 mg/dL (0-0.2); Bilirubin Total 1.1 mg/dL (0.2-1.0); Glucose Level 117 mg/dL (74-106); Magnesium 1.6 mg/dL (1.8-2.4); Phosphorus 3.3 mg/dL (2.5-4.9); Potassium 4.1 mmol/L (3.5-5.1); Protein, Total 5.8 g/dL (6.4-8.2); Sodium Level 137 mmol/L (136-145)
[2021-08-29] MEDS ORDERED: PNEUMOCOCCAL VACCINE 0.5 ML IMVAC ONE (08:00)
--- NOTE | 2021-08-29 08:09 | RAD REPORT ---
EXAM DESCRIPTION: RAD - Chest Single View - 08/29/2021 5:57 am CLINICAL HISTORY: altered mental status Chest pain. COMPARISON: Chest Single View dated 04/06/2020; Chest Single View dated 01/08/2020; Chest Single View dated 12/08/2019 FINDINGS: Portable technique limits examination quality. The lungs are underinflated with prominence of the pulmonary vascularity bilaterally which probably r epresents mild pulmonary edema. The heart is normal in size. Dual lead pacer/defibrillator device is present with changes of a prior CABG. IMPRESSION: Mild CHF.
[2021-08-29] MEDS: CEFTRIAXONE 1,000 MG in NA CHLORIDE 0.9% 50 ML IVPB SCH (08:40)
[2021-08-29] MEDS: RISPERIDONE 1 MG TABLET PO SCH (08:41)
[2021-08-29] MEDS: FINASTERIDE 5 MG TAB PO SCH (08:41)
[2021-08-29] MEDS: MULTIVITAMIN TAB PO SCH (08:41)
[2021-08-29] MEDS: VITAMIN D 1000 UNIT TAB PO SCH (08:41)
[2021-08-29] MEDS: ATORVASTATIN 10 MG TAB PO SCH (08:41)
[2021-08-29] MEDS: CITALOPRAM 10 MG TABLET PO SCH (08:42)
[2021-08-29] MEDS: ASPIRIN EC 81 MG TAB PO SCH (08:42)
[2021-08-29] MEDS: HEPARIN 5000 UNIT/ML 1 ML VIAL SQ SCH ×2 (08:42→21:11)
[2021-08-29] MEDS ORDERED: HOME MED 1 EA UNK (Cholecalciferol (Vitamin D3) [Vitamin D3] 2000 UNIT Capsule) PO SCH (09:00)
[2021-08-29] MEDS ORDERED: RISPERIDONE 4 MG PO SCH (09:00)
[2021-08-29] MEDS ORDERED: HOME MED 1 EA UNK (Citalopram Hydrobromide [Citalopram Hbr] 20 MG Tablet) PO SCH (09:00)
[2021-08-29] MEDS ORDERED: HOME MED 1 EA UNK (Multivitamin [Multivitamin] Tablet) PO SCH (09:00)
[2021-08-29] MEDS ORDERED: MAGNESIUM SULFATE 1 gm IVPB 1 GM/100 ML BAG IV ONE (09:00)
--- NOTE | 2021-08-29 11:15 | EKG ---
Test Date: 2021-08-28 Test Time: 07:49:55 Unit Receptionist: BP MEASUREMENT RESULTS: Intervals: Rate: 69 MN: QRSD: 76 QT: 398 QTc: 426 [place]: P: -24 MN: QRS: 64 T: 84 INTERPRETIVE STATEMENTS: Electronic atrial pacemaker Anteroseptal infarct, age undetermined Abnormal ECG Compared to ECG 04/06/2020 08:09:59 No significant changes Electronically Signed On 08-29-21 11:12:19 CDT by Reinier Harper
[2021-08-29] MEDS: HOME MED 1 EA UNK [FLUTICASONE 50MCG NASAL SPRAY] NAS SCH (21:00)
[2021-08-29] MEDS: MELATONIN 3 MG TABLET PO SCH (21:11)
[2021-08-30] MEDS: NACHLORIDE 0.45% 1,000 ML IV SCH (01:53)
[2021-08-30 06:11] LABS: Absolute Lymphocytes (CBC) 1.2 K/uL (0.7-4.9); Hematocrit 33.3 % (39.6-49.0); Lymphocytes % 22.6 % (15.3-44.8); MPV 8.2 fL (7.6-11.3)
[2021-08-30 06:31] LABS: Albumin 2.9 g/dL (3.4-5.0); Bilirubin Total 0.8 mg/dL (0.2-1.0); Magnesium 1.9 mg/dL (1.8-2.4); Potassium 3.9 mmol/L (3.5-5.1); Protein, Total 5.9 g/dL (6.4-8.2)
[2021-08-30] MEDS ORDERED: POTASSIUM CL SA 10 MEQ TAB PO ONE ×2 (06:39→09:00)
[2021-08-30 08:29] VITALS: BP 172/83; TEMP 98.4
--- NOTE | 2021-08-30 08:34 | EKG ---
Test Date: 2021-08-28 Test Time: 08:25:39 Propulsion Engineer: KRISTEN MEASUREMENT RESULTS: Intervals: Rate: 66 [place]: QRSD: 84 QT: 408 QTc: 427 [place]: P: [place]: QRS: 65 T: 95 INTERPRETIVE STATEMENTS: Electronic atrial pacemaker Anteroseptal infarct, age undetermined Abnormal ECG Compared to ECG 08/28/2021 07:49:55 No significant changes Electronically Signed On 08-30-21 08:28:27 CDT by Reinier Harper
[2021-08-30 09:37] VITALS: O2SAT 99
[2021-08-30] MEDS ORDERED: CEFTRIAXONE 1000 MG/VIAL ONE (09:49)
[2021-08-30] MEDS: ASPIRIN EC 81 MG TAB PO SCH (09:55)
[2021-08-30] MEDS: HEPARIN 5000 UNIT/ML 1 ML VIAL SQ SCH (09:55)
[2021-08-30] MEDS: CEFTRIAXONE 1,000 MG in NA CHLORIDE 0.9% 50 ML IVPB SCH (09:55)
[2021-08-30] MEDS: MULTIVITAMIN TAB PO SCH (09:56)
[2021-08-30] MEDS: FINASTERIDE 5 MG TAB PO SCH (09:56)
[2021-08-30] MEDS: VITAMIN D 1000 UNIT TAB PO SCH (09:56)
[2021-08-30] MEDS: ATORVASTATIN 10 MG TAB PO SCH (09:56)
[2021-08-30] MEDS: CITALOPRAM 10 MG TABLET PO SCH (09:56)
[2021-08-30] MEDS: RISPERIDONE 1 MG TABLET PO SCH (09:56)
== END 2021-08-30 13:15 | disposition home or self-care (01) | DRG 690 ==
LOC: ER 06:13 → ERHOLD 12:51 → 2ND 15:00
PROVIDERS: ADMIT Internal Medicine Sleep Medicine; ATTEND Internal Medicine Sleep Medicine
DX: N39.0 Urinary tract infection, site not specified (principal); G93.40 Encephalopathy, unspecified; F03.90 Unspecified dementia, unspecified severity, without behavioral disturbance, psychotic disturbance, mood disturbance, and anxiety; E11.65 Type 2 diabetes mellitus with hyperglycemia; E78.5 Hyperlipidemia, unspecified; G47.00 Insomnia, unspecified; I10 Essential (primary) hypertension; Z86.73 Personal history of transient ischemic attack (TIA), and cerebral infarction without residual deficits; I25.10 Atherosclerotic heart disease of native coronary artery without angina pectoris; Z95.1 Presence of aortocoronary bypass graft; N40.0 Benign prostatic hyperplasia without lower urinary tract symptoms; Z95.0 Presence of cardiac pacemaker; R74.01 Elevation of levels of liver transaminase levels; Z79.82 Long term (current) use of aspirin; Z20.822 Contact with and (suspected) exposure to COVID-19; Z91.81 History of falling
CPT/HCPCS: 36415; 70450; 71045; 71260; 72125; 74177; 76705; 80048; 80053; 80076; 81003; 81015; 82550; 82565; 82947; 83735; 83880; 84100; 84145; 84439; 84443; 85025; 85610; 85730; 87040; 87086; 87088; 90471; 90732; 93005; 96361; 96365; 96366; 97116; 97161; 99285; J1644; J3475; J7040; Q9967; U0003

== ENCOUNTER 2022-07-08 14:33 | Emergency (ER) | payer OTHER ==
[2022-07-08] MEDS ORDERED: NA CHLORIDE 0.9% 1,000 ML ONE (15:04)
--- NOTE | 2022-07-08 15:53 | RAD REPORT ---
EXAM DESCRIPTION: CT - Head Brain Wo Cont - 07/08/2022 3:31 pm CLINICAL HISTORY: MENTAL STATUS CHANGE COMPARISON: None TECHNIQUE: All CT scans are performed using dose optimization technique as appropriate and may inclu de automated exposure control or mA/KV adjustment according to patient size. FINDINGS: No intracranial hemorrhage, hydrocephalus or extra-axial fluid collection.No areas of brai n edema or evidence of midline shift. Small remote left temporal, left parietal, left occipital lobe infarcts. Chronic small vessel ischemic changes. Trace left mastoid fluid. The calvarium is intact. IMPRESSION: No acute intracranial abnormality.
[2022-07-08 16:03] LABS: Absolute Lymphocytes (CBC) 1.6 K/uL (0.7-4.9); Hematocrit 34.9 % (39.6-49.0); Lymphocytes % 22.6 % (15.3-44.8); MCV 85.6 fL (80-100); MPV 8.1 fL (7.6-11.3); RBC Red Blood Cell Count 4.08 M/uL (4.33-5.43)
--- NOTE | 2022-07-08 16:09 | RAD REPORT ---
EXAM DESCRIPTION: RAD - Chest Single View - 07/08/2022 3:56 pm CLINICAL HISTORY: COUGH COMPARISON: Chest Single View dated 08/29/2021; Chest Single View dated 04/06/2020; Chest Single View dated 01/08/2020; Chest Single View dated 12/08/2019 FINDINGS: Lines: Pacemaker/ICD . Lungs: Low lung volumes and likely mild right basilar atelectasis. Pleural: No significant pleural effusions or pneumothorax. Cardiac: The heart size is within normal limits. Mediastinum: Within normal limits. Bones: No acute fractures. Sternotomy. Other: None IMPRESSION: No definite acute process. Suspect atelectasis at the right lung base.
[2022-07-08 16:10] LABS: Protime INR 1.07
[2022-07-08 16:23] LABS: Albumin 3.4 g/dL (3.4-5.0); Bilirubin Direct 0.2 mg/dL (0-0.2); Bilirubin Total 0.7 mg/dL (0.2-1.0); Magnesium 1.6 mg/dL (1.6-2.4); Potassium 4.3 mmol/L (3.5-5.1); Protein, Total 6.5 g/dL (6.4-8.2); Troponin High Sensitivity 12.6 pg/mL (<58.9)
[2022-07-08 16:49] LABS: SARS-COV-2 RT PCR NEGATIVE (NEGATIVE)
[2022-07-08 16:59] LABS: Urine Blood Negative (Negative); Urine Glucose Negative (Negative); Urine Protein Negative (Negative); Urine pH 5.5 (5.0-7.0)
--- NOTE | 2022-07-08 17:01 | EDPHYS ---
Physician Documentation [facility] Name: Omar Norris Age: 82 yrs Sex: Male : 1940 Arrival Date: 07/08/2022 Time: 14:43 Bed 19 Private MD: ED Physician Jose Carlos Mirza HPI: 07/08 16:07 This 82 yrs old Male presents to ER via EMS with complaints of Altered Mental tess Status. 16:07 The patient presents with decreased responsiveness, trouble concentrating. Onset: The tess symptoms/episode began/occurred today, yesterday. Possible causes: CVA or TIA, head injury, low blood sugar, sepsis, unknown. Associated signs and symptoms: Pertinent positives: confusion. Historical: - Allergies: 14:47 No Known Allergies; ph - PMHx: 14:47 Diabetes - IDDM; Hypertension; Pacemaker; stroke; Dementia; ph - Immunization history:: Adult Immunizations unknown. - Social history:: Smoking status: unknown. ROS: 16:28 Constitutional: Negative for fever, chills, and weight loss, Eyes: Negative for injury, tess pain, redness, and discharge, ENT: Negative for injury, pain, and discharge, Neck: Negative for injury, pain, and swelling, Cardiovascular: Negative for chest pain, palpitations, and edema, Respiratory: Negative for shortness of breath, cough, wheezing, and pleuritic chest pain, Abdomen/GI: Negative for abdominal pain, nausea, vomiting, diarrhea, and constipation, Back: Negative for injury and pain, : Negative for injury, bleeding, discharge, and swelling, MS/Extremity: Negative for injury and deformity, Skin: Negative for injury, rash, and discoloration, Psych: Negative for depression, anxiety, suicide ideation, homicidal ideation, and hallucinations, Allergy/Immunology: Negative for hives, rash, and allergies, Endocrine: Negative for neck swelling, polydipsia, polyuria, polyphagia, and marked weight changes, Hematologic/Lymphatic: Negative for swollen nodes, abnormal bleeding, and unusual bruising. 16:28 Neuro: Positive for altered mental status. Exam: 16:28 Constitutional: This is a well developed, well nourished patient who is awake, alert, tess and in no acute distress. Head/Face: Normocephalic, atraumatic. Eyes: Pupils equal round and reactive to light, extra-ocular motions intact. Lids and lashes normal. Conjunctiva and sclera are non-icteric and not injected. Cornea within normal limits. Periorbital areas with no swelling, redness, or edema. ENT: Nares patent. No nasal discharge, no septal abnormalities noted. Tympanic membranes are normal and external auditory canals are clear. Oropharynx with no redness, swelling, or masses, exudates, or evidence of obstruction, uvula midline. Mucous membranes moist. Neck: Trachea midline, no thyromegaly or masses palpated, and no cervical lymphadenopathy. Supple, full range of motion without nuchal rigidity, or vertebral point tenderness. No Meningismus. Chest/axilla: Normal chest wall appearance and motion. Nontender with no deformity. No lesions are appreciated. Cardiovascular: Regular rate and rhythm with a normal S1 and S2. No gallops, murmurs, or rubs. Normal PMI, no JVD. No pulse deficits. Respiratory: Lungs have equal breath sounds bilaterally, clear to auscultation and percussion. No rales, rhonchi or wheezes noted. No increased work of breathing, no retractions or nasal flaring. Abdomen/GI: Soft, non-tender, with normal bowel sounds. No distension or tympany. No guarding or rebound. No evidence of tenderness throughout. Back: No spinal tenderness. No costovertebral tenderness. Full range of motion. Male : Normal genitalia with no discharge or lesions. Skin: Warm, dry with normal turgor. Normal color with no rashes, no lesions, and no evidence of cellulitis. MS/ Extremity: Pulses equal, no cyanosis. Neurovascular intact. Full, normal range of motion. Neuro: Awake and alert, GCS 15, oriented to person, place, time, and situation. Cranial nerves II-XII grossly intact. Motor strength 5/5 in all extremities. Sensory grossly intact. Cerebellar exam normal. Normal gait. Psych: Awake, alert, with orientation to person, place and time. Behavior, mood, and affect are within normal limits. 16:28 ECG was reviewed by the Attending Physician. 16:59 ECG was reviewed by the Attending Physician. [facility] Vital Signs: 14:43 BP 132 / 74; Pulse 68; Resp 16; Temp 97.0; Pulse Ox 98% on R/A; Weight 70.31 kg; Height ph 5 ft. 10 in. (177.80 cm); 16:00 BP 127 / 60; Pulse 64; Resp 18; Pulse Ox 98% on R/A; ph 17:00 BP 139 / 73; Pulse 74; Resp 16; Temp 97.6; Pulse Ox 98% on R/A; ph 14:43 Body Mass Index 22.24 (70.31 kg, 177.80 cm) ph MDM: 14:45 Patient medically screened. tess 16:31 Differential Diagnosis: CVA, electrolyte abnormality, hypoglycemia, intracranial bleed, tess pneumonia, seizure, sepsis, TIA, UTI, volume depletion. Data reviewed: vital signs, nurses notes, lab test result(s), CBC, electrolytes, hepatic panel, urinalysis. Consideration of Admission/Observation Patient was admitted/placed on observation. Escalation of care including admission/observation considered. Test considered but Not performed: MRI: mri brain. Care significantly affected by the following chronic conditions: Diabetes, Hypertension, dementia, cva. 07/08 14:48 Order name: Basic Metabolic Panel; Complete Time: 16:28 [facility] 07/08 14:48 Order name: CBC with Diff; Complete Time: 16:28 [facility] 07/08 14:48 Order name: LFT's; Complete Time: 16:28 [facility] 07/08 14:48 Order name: Magnesium; Complete Time: 16:28 [facility] 07/08 14:48 Order name: NT PRO-BNP; Complete Time: 16:28 [facility] 07/08 14:48 Order name: PT-INR; Complete Time: 16:28 [facility] 07/08 14:48 Order name: Troponin HS; Complete Time: 16:28 [facility] 07/08 14:48 Order name: XRAY Chest (1 view); Complete Time: 16:28 [facility] 07/08 14:48 Order name: CT Head Brain wo Cont; Complete Time: 16:06 [facility] 07/08 14:48 Order name: Urine Culture [facility] 07/08 14:48 Order name: COVID-19/FLU A+B; Complete Time: 17:34 [facility] 07/08 14:48 Order name: Lipase; Complete Time: 16:28 [facility] 07/08 16:59 Order name: Urine Dipstick-Ancillary; Complete Time: 17:34 EDMS 07/08 14:48 Order name: EKG; Complete Time: 14:49 [facility] 07/08 14:48 Order name: Cardiac monitoring; Complete Time: 16:31 [facility] 07/08 14:48 Order name: EKG - Nurse/Tech; Complete Time: 16:43 [facility] 07/08 14:48 Order name: IV Saline Lock; Complete Time: 16:31 [facility] 07/08 14:48 Order name: Labs collected and sent; Complete Time: 16:31 [facility] 07/08 14:48 Order name: O2 Per Protocol; Complete Time: 16:31 [facility] 07/08 14:48 Order name: O2 Sat Monitoring; Complete Time: 16:31 [facility] 07/08 14:48 Order name: Urine Dipstick-Ancillary (obtain specimen); Complete Time: 17:13 [facility] 07/08 15:43 Order name: Diet Regular; Complete Time: 15:44 [facility] 07/08 15:43 Order name: PO challenge; Complete Time: 17:13 [facility] EC:59 Rate is 67 beats/min. Rhythm is regular. QRS [place] is Normal. NC interval is normal. QRS tess interval is normal. QT interval is normal. No Q waves. T waves are Normal. No ST changes noted. Clinical impression: Abnormal EKG without significant change and No evidence of ischemia. Interpreted by me. Reviewed by me. Administered Medications: 16:30 Drug: NS 0.9% 500 ml Route: IV; Rate: bolus; Site: right antecubital; ph 17:44 Follow up: Response: No adverse reaction; IV Status: Completed infusion ph 17:13 Drug: NS 0.9% 1000 ml Route: IV; Rate: 125 ml/hr; Site: right antecubital; ph 17:44 Follow up: Response: No adverse reaction; IV Status: Completed infusion ph Disposition Summary: 07/08/22 17:01 Discharge Ordered Location: Home tess Problem: new tess Symptoms: have improved tess Condition: Stable tess Diagnosis - Dementia in other diseases classified elsewhere without behavioral disturbance tess - Type 1 diabetes mellitus with hyperglycemia tess - Presence of cardiac pacemaker tess Followup: tess - With: Private Physician - When: 2 - 3 days - Reason: Recheck today's complaints, Continuance of care, Re-evaluation by your physician Discharge Instructions: - Discharge Summary Sheet tess - Dementia tess - Diabetes Mellitus and Nutrition, Adult tess Forms: - Medication Reconciliation Form tess - Thank You Letter tess - Antibiotic Education tess - Prescription Opioid Use tess Signatures: Dispatcher [employer] Jose Carlos Landrum MD MD tess Lopez, Fauzia, RN RN ph Corrections: (The following items were deleted from the chart) 16:59 16:28 Rate is 68 beats/min. Rhythm is regular. QRS [place] is Normal. NC interval is tess normal. QRS interval is normal. QT interval is normal. No Q waves. T waves are Normal. No ST changes noted. Clinical impression: NSR w/ Non-specific ST/T Changes and No evidence of ischemia. tess
--- NOTE | 2022-07-08 17:01 | ER ---
Nurse's Notes [facility] Name: Omar Norris Age: 82 yrs Sex: Male : 1940 Arrival Date: 07/08/2022 Time: 14:43 Bed 19 Private MD: Diagnosis: Dementia in other diseases classified elsewhere without behavioral disturbance;Type 1 diabetes mellitus with hyperglycemia;Presence of cardiac pacemaker Presentation: 07/08 14:43 Chief complaint: EMS states: Pt from [facility] assisted living facility, EMS called ph for AMS, pt hx of dementia but state that he is "more confused than usual and hasn't been wanting to eat", VSS, BGL 220, pt oriented to person and place upon arrival to ED w/ no complaints, unsure of baseline mental status. Coronavirus screen: Vaccine status: unknown. Ebola Screen: No symptoms or risks identified at this time. Initial Sepsis Screen: Does the patient meet any 2 criteria? No. Patient's initial sepsis screen is negative. Does the patient have a suspected source of infection? No. Patient's initial sepsis screen is negative. Risk Assessment: Do you want to hurt yourself or someone else? Patient reports no desire to harm self or others. Onset of symptoms was July 08, 2022. 14:43 Method Of Arrival: EMS: [facility] 14:43 Acuity: TANIA 3 ph Triage Assessment: 14:47 General: Appears in no apparent distress. comfortable, well groomed, Behavior is calm, ph cooperative, appropriate for age. Pain: Denies pain. Neuro: Level of Consciousness is awake, alert, obeys commands, Oriented to person, place, Machine Gun Mechanic are equal bilaterally Moves all extremities. Cardiovascular: Capillary refill < 3 seconds in bilateral fingers Patient's skin is warm and dry. Respiratory: Airway is patent Respiratory effort is even, unlabored. Derm: Skin is pink, warm \\T\\ dry. Historical: - Allergies: 14:47 No Known Allergies; ph - PMHx: 14:47 Diabetes - IDDM; Hypertension; Pacemaker; stroke; Dementia; ph - Immunization history:: Adult Immunizations unknown. - Social history:: Smoking status: unknown. Screenin:48 [facility] ED Fall Risk Assessment (Adult) History of falling in the last 3 months, ph including since admission No falls in past 3 months (0 pts) Confusion or Disorientation Yes (5 pts) Intoxicated or Sedated No (0 pts) Impaired Gait No (0 pts) Mobility Assist Device Used No (0 pt) Altered Elimination No (0 pt) Score/Fall Risk Level 3 or more points = High Risk Oriented to surroundings, Maintained a safe environment, Hourly rounding (assess needs \\T\\ fall precautionary measures) done. Abuse screen: Denies threats or abuse. Denies injuries from another. Nutritional screening: No deficits noted. Tuberculosis screening: No symptoms or risk factors identified. Assessment: 16:00 General: SEE TRIAGE ASSESSMENT. ph 17:25 Reassessment: Patient appears in no apparent distress at this time. Patient and/or ph family updated on plan of care and expected duration. Pain level reassessed. Pt awake and alert, oriented to person and place, called [facility], was told that skilled nursing professional would call back. 17:29 Reassessment: Report given to SUSAN Carmichael, who stated that the facility does NOT have ph transportation available on the weekends. Called pt's son, Jules Swift who stated that he was out of town. 17:51 Reassessment: Pt's son called back and stated that his son, pt's grandson, would be ph able to come and pick pt up. 18:50 Reassessment: Pt's grandson at bedside, pt d/c, will be taken to [facility]. ph Vital Signs: 14:43 BP 132 / 74; Pulse 68; Resp 16; Temp 97.0; Pulse Ox 98% on R/A; Weight 70.31 kg; Height ph 5 ft. 10 in. (177.80 cm); 16:00 BP 127 / 60; Pulse 64; Resp 18; Pulse Ox 98% on R/A; ph 17:00 BP 139 / 73; Pulse 74; Resp 16; Temp 97.6; Pulse Ox 98% on R/A; ph 14:43 Body Mass Index 22.24 (70.31 kg, 177.80 cm) ph ED Course: 14:43 Patient arrived in ED. ph 14:45 Jose Carlos Mirza MD is Attending Physician. [facility] 14:47 Triage completed. ph 14:48 Arm band placed on Patient placed in an exam room, on a stretcher, on ditch tender, ph on pulse oximetry. 14:49 Patient has correct armband on for positive identification. Bed in low position. Call ph light in reach. Side rails up X 1. supply chain tech on. Pulse ox on. NIBP on. Door closed. Noise minimized. Warm blanket given. Pillow given. 14:50 Fauzia Lopez, RN is Primary Nurse. ph 15:30 Initial lab(s) drawn, by me, sent to lab. Inserted saline lock: 22 gauge in right ph antecubital area, using aseptic technique. Blood collected. 15:32 CT Head Brain wo Cont In Process Unspecified. EDMS 15:58 XRAY Chest (1 view) In Process Unspecified. EDMS 17:43 No provider procedures requiring assistance completed. ph 18:50 IV discontinued, intact, bleeding controlled, No redness/swelling at site. Pressure ph dressing applied. Administered Medications: 16:30 Drug: NS 0.9% 500 ml Route: IV; Rate: bolus; Site: right antecubital; ph 17:44 Follow up: Response: No adverse reaction; IV Status: Completed infusion ph 17:13 Drug: NS 0.9% 1000 ml Route: IV; Rate: 125 ml/hr; Site: right antecubital; ph 17:44 Follow up: Response: No adverse reaction; IV Status: Completed infusion ph Medication: 14:49 VIS not applicable for this client. ph Outcome: 17:01 Discharge ordered by . [facility] 18:53 Patient left the ED. ph 18:53 Discharged to home ambulatory, with family. ph 18:53 Condition: good 18:53 Discharge instructions given to family, correction, Instructed on discharge instructions, follow up and referral plans. Demonstrated understanding of instructions, follow-up care. Signatures: Dispatcher [employer] Jose Carlos Landrum MD MD cha Hall, Patricia, RN RN ph
[2022-07-08 19:07] VITALS: O2SAT 98
[2022-07-08 19:23] VITALS: BP 139/73; TEMP 97.6
--- NOTE | 2022-07-11 17:21 | EKG ---
Test Date: 2022-07-08 Test Time: 16:39:43 V Belt Skiver: RAN MEASUREMENT RESULTS: Intervals: Rate: 67 PA: QRSD: 98 QT: 394 QTc: 416 [place]: P: PA: QRS: 62 T: 88 INTERPRETIVE STATEMENTS: Electronic atrial pacemaker Anteroseptal infarct, age undetermined Abnormal ECG Compared to ECG 07/08/2022 16:38:56 No significant changes Electronically Signed On 07-11-22 17:14:50 COLORECTAL SURGEON by Damien Watson
--- NOTE | 2022-07-11 17:21 | EKG ---
Test Date: 2022-07-08 Test Time: 16:38:56 Plastic Joint Maker: RAN MEASUREMENT RESULTS: Intervals: Rate: 70 AL: 166 QRSD: 94 QT: 398 QTc: 429 [place]: P: AL: 166 QRS: 60 T: 95 INTERPRETIVE STATEMENTS: Electronic atrial pacemaker Anteroseptal infarct, age undetermined Abnormal ECG Compared to ECG 08/28/2021 08:25:39 No significant changes Electronically Signed On 07-11-22 17:14:52 ENVIRONMENTAL ENGINEERING TECHNICIAN by Damien Watson
== END 2022-07-08 18:53 | disposition home or self-care (01) ==
LOC: ER 14:33
DX: E10.65 Type 1 diabetes mellitus with hyperglycemia (principal); F02.80 Dementia in other diseases classified elsewhere, unspecified severity, without behavioral disturbance, psychotic disturbance, mood disturbance, and anxiety; Z95.0 Presence of cardiac pacemaker; I10 Essential (primary) hypertension; Z20.822 Contact with and (suspected) exposure to COVID-19
CPT/HCPCS: 87088; 85025; 87086; 80048; 36415; 83735; 85610; 80076; 81003; 84484; 83690; 83880; 0240U; 70450; 71045; 96360; 99284; J7030; 93005

== ENCOUNTER 2022-10-16 09:37 | Inpatient (IN) | payer OTHER ==
[2022-10-16] MEDS ORDERED: LEVALBUTEROL 1.25 MG/3 ML NEB ONE (10:01)
[2022-10-16] MEDS ORDERED: IPRATROPIUM BROM 0.5MG/2.5ML ONE ×3 (10:01→14:42)
[2022-10-16 10:07] LABS: Absolute Lymphocytes (CBC) 1.5 K/uL (0.7-4.9); Hematocrit 30.5 % (39.6-49.0); MCV 86.3 fL (80-100); MPV 8.6 fL (7.6-11.3); RBC Red Blood Cell Count 3.54 M/uL (4.33-5.43)
[2022-10-16 10:26] LABS: Magnesium 1.6 mg/dL (1.6-2.4); Potassium 4.1 mEq/L (3.5-5.1); Troponin High Sensitivity 26.3 pg/mL (<58.9)
--- NOTE | 2022-10-16 10:50 | RAD REPORT ---
EXAM DESCRIPTION: RADChest Single View10/16/2022 10:35 am CLINICAL HISTORY: SOB COMPARISON: Brain W/Wo Cont dated 10/16/2022hest Single View dated 07/08/2022; Chest Single View date d 08/29/2021; Chest Single View dated 04/06/2020; Chest Single View dated 01/08/2020 TECHNIQUE: Portable AP view of the chest. FINDINGS: New central interstitial prominence with ground-glass opacities. Suggestion of small right pleural effusion. Right hemidiaphragm is again elevated. No pneumothorax or sizable left-sided effus ion. Mediastinal contours are unchanged. 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 IMPRESSION: Central interstitial prominence and ground-glass opacities, suggestive of central conges tion or pulmonary edema.
--- NOTE | 2022-10-16 10:55 | EDPHYS ---
Physician Documentation [facility] Name: Omar Norris Age: 82 yrs Sex: Male : 1940 Arrival Date: 10/16/2022 Time: 09:37 Bed 8 Private MD: ED Physician Mitul Cohen HPI: 10/16 09:59 This 82 yrs old Male presents to ER via Ambulatory with complaints of Shortness Of kb Breath. 09:59 The patient has shortness of breath at rest. Onset: The symptoms/episode began/occurred kb this morning. Duration: The symptoms are continuous. The patient's shortness of breath has no apparent modifying factors. Associated signs and symptoms: Pertinent negatives: non-productive cough, productive cough, fever. Severity of symptoms: At their worst the symptoms were moderate in the emergency department the symptoms have improved mildly. The patient has not experienced similar symptoms in the past. The patient has not recently seen a physician. EMS reports assisted living staff found pt laying on the floor with shortness of breath and diaphoresis at 8:57. Pt reports shortness of breath started this morning. Historical: - Allergies: 09:47 No Known Allergies; jl7 - Home Meds: 09:47 aspirin 81 mg Oral TbEC [Active]; atorvastatin 40 mg oral tablet [Active]; carvedilol jl7 6.25 mg oral tablet every 12 hours [Active]; citalopram 20 mg tab 1 tab daily [Active]; donepezil 5 mg oral Tablet,disintegrating daily [Active]; fluticasone propionate topical [Active]; glipizide 5 mg Oral tab 2 times per day [Active]; losartan 50 mg oral tablet daily [Active]; metformin 1,000 mg Oral tr24 2 times per day [Active]; Risperdal 2 mg oral tablet daily [Active]; - PMHx: 09:47 Dementia; Diabetes - IDDM; Hypertension; Pacemaker; stroke; Hypercholesterolemia; jl7 Depressive disorder; BPH; - Immunization history:: Adult Immunizations unknown. - Social history:: Smoking status: unknown. ROS: 09:58 Constitutional: Negative for fever, chills, and weight loss. kb 09:58 Respiratory: Positive for shortness of breath, wheezing. 09:58 All other systems are negative. Exam: 09:45 ECG was reviewed by the Attending Physician. kb 09:58 Constitutional: This is a well developed, well nourished patient who is awake, alert, kb and in no acute distress. Head/Face: Normocephalic, atraumatic. ENT: Moist Mucous membranes Cardiovascular: Regular rate and rhythm with a normal S1 and S2. No gallops, murmurs, or rubs. No pulse deficits. Abdomen/GI: Soft, non-tender. No distention Skin: Warm, dry with normal turgor. Normal color. MS/ Extremity: Pulses equal, no cyanosis. Neurovascular intact. Full, normal range of motion. 09:58 Respiratory: mild respiratory distress is noted, Respirations: labored breathing, that is mild, Breath sounds: rhonchi, that are mild, that are moderate, are located in both bases. 09:58 Neuro: Exam negative for acute changes. Vital Signs: 09:39 BP 156 / 97; Pulse 101; Resp 19; Temp 97.9; Pulse Ox 94% on R/A; jl7 13:01 BP 158 / 95; Pulse 95; Resp 18; Pulse Ox 98% on 2 lpm NC; mb9 13:54 BP 136 / 67; Pulse 85; Resp 16; Pulse Ox 98% on R/A; Pain 0/10; mb9 14:17 BP 124 / 84; Pulse 86; Resp 15; Pulse Ox 98% ; jl7 13:54 Pain Scale: Adult mb9 MDM: 09:39 Patient medically screened. kb 09:59 Data reviewed: vital signs, nurses notes. kb 10:00 Differential diagnosis: Bronchitis CHF exacerbation, Chronic Obstructive Pulmonary kb Disease Myocardial Infarction pneumonia, pulmonary edema, Sepsis. Historians other than the Patient: EMS: [facility]. 10:01 External Records Reviewed: Forms from assisted living facility reviewed. kb 10:54 Consideration of Admission/Observation Patient was admitted/placed on observation. kb Counseling: I had a detailed discussion with the patient and/or guardian regarding: the historical points, exam findings, and any diagnostic results supporting the discharge/admit diagnosis, lab results, radiology results, the need for further work-up and treatment in the hospital. 11:23 Management of patient was discussed with the following: Hospitalist: Jeramie OUTBOARD MOTOR ASSEMBLER accepts kb pt for admission under Dr Lam. ED course: Pt was given IVF by EMS. 30ml/kg of IVF not administered due to concern for volume overload. No infectious process identified at this time.. 10/16 09:40 Order name: Basic Metabolic Panel; Complete Time: 10:28 kb 10/16 09:40 Order name: CBC with Diff; Complete Time: 10:09 kb 10/16 09:40 Order name: Magnesium; Complete Time: 10:28 kb 10/16 09:40 Order name: NT PRO-BNP; Complete Time: 10:28 kb 10/16 09:40 Order name: Troponin HS; Complete Time: 10:28 kb 10/16 09:40 Order name: Lactate w/ 2H reflex if indic.; Complete Time: 10:28 kb 10/16 09:40 Order name: Blood Culture Adult (2) kb 10/16 12:59 Order name: Lactate Sepsis 2 HR Follow-up; Complete Time: 13:13 EDMS 10/16 13:06 Order name: Magnesium EDMS 10/16 13:06 Order name: Phosphorus EDMS 10/16 13:06 Order name: T4 Free EDMS 10/16 13:06 Order name: Thyroid Stimulating Hormone EDMS 10/16 13:06 Order name: Urinalysis w/ reflexes EDMS 10/16 13:06 Order name: Basic Metabolic Panel EDMS 10/16 13:06 Order name: Basic Metabolic Panel EDMS 10/16 13:06 Order name: CBC with Automated Diff EDMS 10/16 13:06 Order name: CBC with Automated Diff EDMS 10/16 13:06 Order name: NT PRO-BNP EDMS 10/16 13:06 Order name: NT PRO-BNP EDMS 10/16 09:40 Order name: XRAY Chest (1 view); Complete Time: 10:51 kb 10/16 11:43 Order name: Thorax Wo Con; Complete Time: 12:10 EDMS 10/16 13:09 Order name: Echo with Doppler EDMS 10/16 09:40 Order name: EKG; Complete Time: 09:41 kb 10/16 13:06 Order name: 60g Consistent Carbohydrate (ADA 1800/1999) EDMS 10/16 09:40 Order name: Cardiac monitoring; Complete Time: 09:40 kb 10/16 09:40 Order name: EKG - Nurse/Tech; Complete Time: 09:40 kb 10/16 09:40 Order name: IV Saline Lock; Complete Time: 09:40 kb 10/16 09:40 Order name: Labs collected and sent; Complete Time: 10:03 kb 10/16 09:40 Order name: O2 Per Protocol; Complete Time: :40 kb 10/16 09:40 Order name: O2 Sat Monitoring; Complete Time: :40 kb EC:45 Rate is 103 beats/min. Rhythm is regular. QRS [place] is Normal. MT interval is prolonged kb at 216 msec. QRS interval is normal at 86 msec. QT interval is normal at 429 msec. Administered Medications: 10:03 Drug: Levalbuterol Inhalation 1.25 mg Route: Inhalation; ko1 10:03 Drug: Ipratropium Inhalation Aerosol 0.5 mg Route: Inhalation; ko1 11:03 Drug: Furosemide IVP 20 mg Route: IVP; Site: right forearm; ko1 11:25 CANCELLED (Physician Discretion): NS 0.9% IV 500 ml IV at bolus once kb Disposition Summary: 10/16/22 10:55 Hospitalization Ordered Hospitalization Status: Inpatient Admission kb Provider: Gama Lam Location: Telemetry/[facility] (Inpatient) kb Condition: Stable kb Problem: new kb Symptoms: are unchanged kb Bed/Room Type: Standard Room Assignment: 231(10/16/22 14:17) ja1 Diagnosis - Acute pulmonary edema kb Forms: - Medication Reconciliation Form kb - SBAR form kb Signatures: Dispatcher [employer] EDMS Charito Goins, MINDY GAS PROVER-Shaina Soler RN RN jl7 Venkat Castro RN RN ja1 Jing Mills RN RN ko1 Corrections: (The following items were deleted from the chart) 11:25 11:25 NS 0.9% IV 500 ml IV at bolus once ordered. kb kb 11:27 11:23 ED course: Pt will be given 500ml of IVF instead of 30 ml/kg due to concern for kb fluid overload. kb 14:17 10:55 kb ja1
--- NOTE | 2022-10-16 10:55 | ER ---
Nurse's Notes [facility] Name: Omar Norris Age: 82 yrs Sex: Male : 1940 Arrival Date: 10/16/2022 Time: 09:37 Bed 8 Private MD: Diagnosis: Acute pulmonary edema Presentation: 10/16 09:39 Chief complaint: EMS states: Toned out for shortness of breath x 1 hour MARBLE FINISHER; 92% and jl7 wheezing on EMS arrival, 1 albuterol given on scene, 125 mg Solu-Medrol given, bgl 273. Coronavirus screen: difficulty breathing. Ebola Screen: No symptoms or risks identified at this time. Initial Sepsis Screen: Does the patient meet any 2 criteria? HR > 90 bpm. No. Patient's initial sepsis screen is negative. Does the patient have a suspected source of infection? No. Patient's initial sepsis screen is negative. Risk Assessment: Do you want to hurt yourself or someone else? Patient reports no desire to harm self or others. Onset of symptoms was October 16, 2022 at 08:30. 09:39 Method Of Arrival: Ambulatory jl7 09:39 Acuity: TANIA 3 jl7 09:39 Care prior to arrival: Medication(s) given: Albuterol Neb x 1, Normal saline infusion, jl7 125 mg Solu-medrol IVP IV initiated. 18 GA, in the right forearm, Glucose check: 273 Med neb given. Triage Assessment: 09:47 General: Appears in no apparent distress. uncomfortable, Behavior is calm, cooperative, jl7 appropriate for age. Pain: Denies pain. Neuro: Level of Consciousness is awake, alert, obeys commands, Oriented to person. Respiratory: Reports shortness of breath at rest Airway is patent Respiratory effort is even, unlabored, Respiratory pattern is regular, symmetrical, Onset: The symptoms/episode began/occurred this morning, the patient has moderate shortness of breath. Derm: Skin is pink, warm \T\ dry. Historical: - Allergies: 09:47 No Known Allergies; jl7 - Home Meds: 09:47 aspirin 81 mg Oral TbEC [Active]; atorvastatin 40 mg oral tablet [Active]; carvedilol jl7 6.25 mg oral tablet every 12 hours [Active]; citalopram 20 mg tab 1 tab daily [Active]; donepezil 5 mg oral Tablet,disintegrating daily [Active]; fluticasone propionate topical [Active]; glipizide 5 mg Oral tab 2 times per day [Active]; losartan 50 mg oral tablet daily [Active]; metformin 1,000 mg Oral tr24 2 times per day [Active]; Risperdal 2 mg oral tablet daily [Active]; - PMHx: 09:47 Dementia; Diabetes - IDDM; Hypertension; Pacemaker; stroke; Hypercholesterolemia; jl7 Depressive disorder; BPH; - Immunization history:: Adult Immunizations unknown. - Social history:: Smoking status: unknown. Screenin:12 [facility] ED Fall Risk Assessment (Adult) History of falling in the last 3 months, jl7 including since admission No falls in past 3 months (0 pts) Confusion or Disorientation Yes (5 pts) Intoxicated or Sedated No (0 pts) Impaired Gait Yes (1 pt) Mobility Assist Device Used No (0 pt) Altered Elimination No (0 pt) Score/Fall Risk Level 3 or more points = High Risk Oriented to surroundings, Maintained a safe environment, Hourly rounding (assess needs \T\ fall precautionary measures) done. Abuse screen: Denies threats or abuse. Denies injuries from another. Nutritional screening: No deficits noted. Tuberculosis screening: No symptoms or risk factors identified. Assessment: 13:00 General: Appears in no apparent distress. Behavior is cooperative. Pain: Denies pain. mb9 Neuro: Level of Consciousness is awake, obeys commands, Oriented to person, situation. Cardiovascular: Heart tones S1 S2 present Rhythm is regular. Respiratory: Airway is patent Respiratory effort is even, unlabored, Respiratory pattern is regular, symmetrical, Breath sounds with wheezes bilaterally. Respiratory: Reports shortness of breath. Derm: Skin is pink, warm \T\ dry. Musculoskeletal: Range of motion: intact in all extremities. 14:17 Reassessment: Patient appears in no apparent distress at this time. No changes from jl7 previously documented assessment. Patient and/or family updated on plan of care and expected duration. Pain level reassessed. Pt laying in bed, denies discomfort, awaiting bed assignment at this time. 14:21 Reassessment: Bed 231 assigned, attempted to call report, Rosemarie reports the nurse has jl7 not been notified of pt assignment yet and will call back. Vital Signs: 09:39 BP 156 / 97; Pulse 101; Resp 19; Temp 97.9; Pulse Ox 94% on R/A; jl7 13:01 BP 158 / 95; Pulse 95; Resp 18; Pulse Ox 98% on 2 lpm NC; mb9 13:54 BP 136 / 67; Pulse 85; Resp 16; Pulse Ox 98% on R/A; Pain 0/10; mb9 14:17 BP 124 / 84; Pulse 86; Resp 15; Pulse Ox 98% ; jl7 13:54 Pain Scale: Adult mb9 ED Course: 09:38 Patient arrived in ED. jl7 09:39 [facility]C [facility] kb 09:39 Mitul Cohen MD is Attending Physician. kb 09:42 EKG done, by ED staff, reviewed by Charito GUILLEN. em1 09:47 Triage completed. jl7 09:47 Arm band placed on right wrist. jl7 09:55 Second set of blood cultures drawn by me. Maintain EMS IV. Dressing intact. Good blood jl7 return noted. Site clean \T\ dry. Gauge \T\ site: 18 right FA. 09:56 pts son called to leave his number............[phone]. bd 10:00 First set of blood cultures drawn by me. jl7 10:03 Jing Mills, RN is Primary Nurse. ko1 10:03 Lactate w/ 2H reflex if indic. Sent. ko1 10:03 Basic Metabolic Panel Sent. ko1 10:03 CBC with Diff Sent. ko1 10:03 Magnesium Sent. ko1 10:03 NT PRO-BNP Sent. ko1 10:03 Troponin HS Sent. ko1 10:06 Blood Culture Adult (2) Sent. ko1 10:12 Patient has correct armband on for positive identification. Placed in gown. Bed in low jl7 position. Call light in reach. Side rails up X 1. Side rails up X2. Client placed on continuous cardiac and pulse oximetry monitoring. NIBP monitoring applied. Warm blanket given. 10:28 Notified Nurse Practitioner and/or Physician Shirt Line Operator of a critical lab result(s), aa5 Lactate 2.2. 10:37 XRAY Chest (1 view) In Process Unspecified. EDMS 10:54 Gama Lam is Hospitalizing Provider. kb 11:58 Thorax Wo Con In Process Unspecified. EDMS 13:54 No provider procedures requiring assistance completed. mb9 13:55 Patient admitted, IV remains in place. mb9 Administered Medications: 10:03 Drug: Levalbuterol Inhalation 1.25 mg Route: Inhalation; ko1 10:03 Drug: Ipratropium Inhalation Aerosol 0.5 mg Route: Inhalation; ko1 11:03 Drug: Furosemide IVP 20 mg Route: IVP; Site: right forearm; ko1 11:25 CANCELLED (Physician Discretion): NS 0.9% IV 500 ml IV at bolus once kb Medication: 10:13 VIS not applicable for this client. jl7 Output: 11:42 Urine: 300ml (Voided); Total: 300ml. ko1 Outcome: 10:55 Decision to Hospitalize by Provider. kb 14:34 Admitted to Med/surg room 231, with oxygen, with chart, Report called to JARAD Ambriz mb9 14:34 Condition: stable 14:34 Instructed on the need for admit. 14:55 Patient left the ED. mb9 Signatures: Dispatcher [employer] EDMS Charito Goins, COPYHOLDER-C COPYHOLDER-Ckb Ruby Cordero Eric em1 Parisa Amado, RN RN [email or web address] Shaina Chamorro RN RN jl7 Jing Mills, JARAD RN ko1 Cindy Chirinos, RN RN mb9 Corrections: (The following items were deleted from the chart) 09:43 09:42 Initial lab(s) drawn, by me, sent to lab. em1 em1
[2022-10-16] MEDS ORDERED: FUROSEMIDE 20 MG/ 2ML VIAL ONE (11:05)
--- NOTE | 2022-10-16 12:09 | RAD REPORT ---
EXAM DESCRIPTION: CT - Thorax Wo Con - 10/16/2022 11:56 am CLINICAL HISTORY: R O PNA COMPARISON: No comparisons TECHNIQUE: Axial thin cut images of the chest were obtained without IV contrast. Multiplanar reforma ts were generated and reviewed. All CT scans are performed using dose optimization technique as appropriate and may include automated exposure control or mA/KV adjustment according to patient size. FINDINGS: No suspicious masses in the lungs. Small layering bilateral pleural effusions. Dependent b ilateral lower lobe ground-glass opacities, could be atelectatic or related to early airspace disease . No pneumothorax. No abnormal mediastinal or hilar masses or lymphadenopathy seen. Few calcifications noted within smal l mediastinal lymph nodes could relate to sequelae of prior granulomatous infection No significant ao rtic or pulmonary artery findings. Assessment is limited in the absence of IV contrast. No chest wall mass or abnormal axillary lymphadenopathy. Evaluation of the solid abdominal structures reveals no suspicious findings. Status post cholecystect phu. Left chest wall pacer/AICD in place. IMPRESSION: Small layering bilateral pleural effusions. Dependent bilateral lower lobe ground-glass opacities, could be related to atelectasis or early airsp malathi disease.
[2022-10-16] MEDS ORDERED: HYDROCODONE/APAP 5/325 MG TAB PO PRN (12:46)
[2022-10-16] MEDS ORDERED: ACETAMINOPHEN 325 MG TABLET PO PRN (12:46)
[2022-10-16] MEDS ORDERED: ONDANSETRON 4 MG/2 ML VIAL IV PRN (13:04)
--- NOTE | 2022-10-16 13:06 | P.HP ---
Certification for Inpatient Patient admitted to: Inpatient With expected LOS: >2 Midnights Patient will require the following post-hospital care: None Practitioner: I am a practitioner with admitting privileges, knowledge of patient current condition, hospital course, and medical plan of care. Services: Services provided to patient in accordance with Admission requirements found in Title 42 Section 412.3 of the Code of Federal Regulations Patient History Date of Service: 10/16/22 Reason for admission: SOB History of Present Illness: Patient is an 82-year-old male with a past medical history significant for dementia, hyperlipidemia., DM2, hypertension, pacemaker, CVA, BPH, depression who presents with complaint of shortness of breath. Patient is a poor historian and unable to provide accurate history. Patient alert and oriented x2 with intermittent episodes of confusion noted. Patient reports associated signs and symptoms of cough, dizziness, nausea, fever and trouble urinating. Patient reported that he has been having trouble urinating for the past 3 months. Patient has a diagnosis of BPH. Patient denies any other signs or symptoms. Symptoms are aggravated or relieved by nothing. Patient decided to present to the hospital for medical evaluation. Of note, patient at his baseline mental status--intermittent episodes of confusion. Allergies No Known Allergies Allergy (Verified 12/08/19 19:56) Home Medications: Aspirin [Aspirin EC 81 MG] 1 tab PO DAILY 04/06/20 Atorvastatin Calcium 40 mg PO DAILY 04/06/20 Cholecalciferol (Vitamin D3) [Vitamin D3] 1 tab PO DAILY 04/06/20 Citalopram Hydrobromide [Citalopram HBr] 1 tab PO DAILY 04/06/20 Fluticasone [Flonase 50MCG Nasal [place]*] 1 puff IH BEDTIME 04/06/20 Melatonin 1 tab PO BEDTIME 04/06/20 Multivitamin 1 tab PO DAILY 04/06/20 risperiDONE [Risperdal] 2 mg PO DAILY 04/06/20 Docusate Sodium [Stool Softener] 100 mg PO DAILY 08/28/21 Donepezil [Aricept*] 5 mg PO DAILY 08/28/21 Glipizide [Glipizide ER] 5 mg PO BID 08/28/21 Lactulose 30 ml PO DAILY 08/28/21 Loratadine [Claritin*] 10 mg PO DAILY 08/28/21 Losartan/Hydrochlorothiazide [Losartan-Hctz 50-12.5 mg Tab] 50 mg PO DAILY 08/28/21 Meloxicam 7.5 mg PO DAILY 08/28/21 Metformin HCl 1,000 mg PO BID 08/28/21 Sennosides [Senokot] 2 tab PO BEDTIME 08/28/21 carvediloL [Coreg*] 6.25 mg PO DAILY 08/28/21 Cefdinir [Omnicef] 300 mg PO BID #20 capsule 08/30/21 - Past Medical/Surgical History Diabetic: Yes -: Hypertension -: Diabetes mellitus type 2 -: BPH -: 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 -: Hyperlipidemia -: History of CVA -: Pacemaker insertion- October 2019 -: CABG Psychosocial/ Personal History: Patient lives at senior care - Family History Mother Notes: Son unsure of grandmothers medical history Father Notes: Son unsure of Grandfathers medical history - Social History Smoking Status: Never smoker Alcohol use: No CD- Drugs: No Caffeine use: Yes Place of Residence: Home Review of Systems General: Fever Eyes: Unremarkable ENT: Unremarkable Respiratory: Cough, Shortness of Breath Cardiovascular: Unremarkable Gastrointestinal: Nausea Genitourinary: Other (Trouble urinating.) Musculoskeletal: Unremarkable Integumentary: Unremarkable Neurological: Other (Dizziness) Lymphatics: Unremarkable Physical Examination - Physical Exam General: Alert, In no apparent distress, Oriented x2, Confused HEENT: Atraumatic, PERRLA, Mucous membr. moist/pink, EOMI, Sclerae nonicteric Neck: Supple, 2+ carotid pulse no bruit, No LAD, Without JVD or thyroid abnormality Respiratory: Normal air movement, Diminished Cardiovascular: No edema, Regular rate/rhythm, Normal S1 S2 Capillary refill: <2 Seconds Gastrointestinal: Normal bowel sounds, No tenderness Musculoskeletal: No clubbing, No swelling, No contractures, No tenderness Integumentary: No rashes Neurological: Normal speech, Normal tone, Normal affect Lymphatics: No axilla or inguinal lymphadenopathy - Studies Laboratory Data (last 24 hrs) 10/16/22 09:55: WBC 9.40, Hgb 9.8 L, Hct 30.5 L, Plt Count 199 10/16/22 09:55: Sodium 136, Potassium 4.1, BUN 24 H, Creatinine 1.08, Glucose 228 H, Magnesium 1.6 Assessment and Plan - Plan --Pneumonia. CT imaging indicates Small layering bilateral pleural effusions. Dependent bilateral lower lobe ground-glass opacities, could be related to atelectasis or early airspace disease. Patient started on antibiotics, neb treatment with albuterol\Atrovent and O2 therapy as needed. Continue diuresis with Lasix. --Elevated BNP. BNP level at 5144. Echocardiogram pending. CT imaging indicates findings consistent with small bilateral pleural effusion. Continue diuresis with Lasix. -- History of CVA\CABG. Continue aspirin and statin. -- Dementia. Continue home medications. Patient at his baseline mental status. --Depression. Continue home medication. --Hyperlipidemia. Continue statin. --DM2. BS monitoring with sliding scale insulin. --Hypertension. Poorly controlled. Continue home medications and hydralazine as needed. --Presence of pacemaker. Telemetry to monitor for any malignant arrhythmia. Continue supportive care. --Anemia of chronic disease. H&H stable. We will continue to monitor hemoglobin and transfuse if less than 7.0. -- CKD 2. Stable. We will continue to monitor renal functions. --BPH. Continue home medication. --DVT prophylaxis with Lovenox subQ. Discharge Plan: Home Plan to discharge in: Greater than 2 days - Advance Directives Does patient have a Living Will: Yes Does patient have a Durable POA for Healthcare: No - Code Status/Comfort Care Code Status Assessed: Yes Physician Review: Patient Assessed, Agree with Above Assessment and Plan Critical Care: No
[2022-10-16] MEDS: IPRATROPIUM BROM 0.5MG/2.5ML NEB SCH ×2 (14:00→20:30)
[2022-10-16] MEDS: ALBUTEROL 2.5 MG/3 ML NEB SOL NEB SCH ×2 (14:00→20:30)
[2022-10-16] MEDS: AZITHROMYCIN IV 500 MG in NA CHLORIDE 0.9% 250 ML IVPB SCH (14:00)
[2022-10-16] MEDS: ENOXAPARIN 40 MG/0.4 ML SQ SCH (14:00)
[2022-10-16] MEDS ORDERED: AZITHROMYCIN 500 MG INJ IVPB ONE (14:20)
[2022-10-16] MEDS ORDERED: NA CHLORIDE 0.9% 250 ML ONE (14:20)
[2022-10-16] MEDS ORDERED: ENOXAPARIN 40 MG/0.4 ML SQ ONE (14:21)
[2022-10-16] MEDS ORDERED: ALBUTEROL 2.5 MG/3 ML NEB SOL ONE ×2 (14:35→14:42)
[2022-10-16 14:47] LABS: Magnesium 1.7 mg/dL (1.6-2.4); Thyroid Stimulating Hormone 2.3 uIU/mL (0.358-3.740)
[2022-10-16 15:27] VITALS: BMI 22.8
[2022-10-16] MEDS ORDERED: MAGNESIUM SULFATE 1 gm IVPB 1 GM/100 ML BAG IV ONE (15:49)
[2022-10-16] MEDS: CEFTRIAXONE 1,000 MG in NA CHLORIDE 0.9% 50 ML IVPB SCH (16:02)
[2022-10-16] MEDS: FUROSEMIDE 20 MG/ 2ML VIAL IV SCH (16:03)
[2022-10-16] MEDS: INSULIN -REGULAR HUMAN 50 UNIT/0.5 ML ML SQ SCH ×2 (17:08→21:36)
[2022-10-16 19:22] LABS: Specific Gravity 1.007 (1.005-1.030); Urine Bilirubin NEGATIVE (Negative); Urine Blood Negative (Negative); Urine Clarity Clear (Clear); Urine Color Colorless (Yellow); Urine Glucose TRACE (Negative); Urine Protein NEGATIVE (Negative); Urine Urobilinogen Normal (Normal)
[2022-10-17] MEDS: IPRATROPIUM BROM 0.5MG/2.5ML NEB SCH ×4 (01:25→20:00)
[2022-10-17] MEDS: ALBUTEROL 2.5 MG/3 ML NEB SOL NEB SCH ×4 (01:25→20:00)
[2022-10-17 03:55] LABS: Absolute Lymphocytes (CBC) 1.3 K/uL (0.7-4.9); Hematocrit 30.3 % (39.6-49.0); MCV 84.8 fL (80-100); MPV 8.8 fL (7.6-11.3); RBC Red Blood Cell Count 3.58 M/uL (4.33-5.43)
[2022-10-17 04:20] LABS: Potassium 4.2 mEq/L (3.5-5.1)
--- NOTE | 2022-10-17 07:13 | P.PN ---
Date of Service: 10/17/22 Subjective: Breathing feels easier this morning states he's had trouble urinating for about 3+ months intermittent confusion noted in chart denies chest pain ROS: 10 point ROS as noted above, otherwise negative Physical Exam: GEN: Alert, oriented x2, dementia HEENT: Normal conjunctiva, sclera anicteric CV: Regular rate and rhythm, no edema, +systolic murmur Pulm: Nonlabored respirations on room air, diminished at bases b/l ABD: Soft, nontender, nondistended MSK: No joint tenderness Neuro: Normal speech, normal affect vitals reviewed Problem List: acute hypoxemic respiratory failure secondary to CHF vs pneumonia Pneumonia, suspected Elevated BNP CKD 2 history of CVA/ CAD s/p CABG Presence of pacemaker Dementia Depression Hyperlipidemia NIDDM2 Hypertension Anemia of chronic disease BPH acute hypoxemic respiratory failure secondary to CHF vs pneumonia Pneumonia , suspected elevated BNP, possible CHF exacerbation CT imaging indicates Small layering bilateral pleural effusions. Dependent bilateral lower lobe ground-glass opacities, could be related to atelectasis or early airspace disease cotninue roceph/azithro empirically, nebs/atrovent O2 as needed pulm consulted BNP level at 5144, increased to 16k CT imaging indicates findings consistent with small bilateral pleural effusion last echo (2019): EF: 40-45%, mild globaly hypokinesis Echocardiogram pending this hospitalization continue lasix monitor UOP /renal function CKD 2 chronic urinary retention / BPH monitor renal function slightly worse 10/17 Nephrology consulted reportedly some vague urinary issues for several months uncertain, but suspects he has been told he has a large prostate in the recent past check renal u/s - (10/17) no hydro, noted enlarged prostate pre-/post- void residual check History of CVA\CABG - Continue aspirin and statin Presence of pacemaker - Telemetry to monitor for any malignant arrhythmia. Dementia - Continue home medications. Patient at his baseline mental status. Depression - Continue home medication Hyperlipidemia - Continue statin NIDDM2 - sliding scale insulin Hypertension - Poorly controlled. Continue home medications and hydralazine as needed. Anemia of chronic disease - H&H stable. We will continue to monitor hemoglobin and transfuse if less than 7.0. BPH - Continue home medication VTE: Lovenox Code: Full Dispo: back to facility he came from, ?[facility] ~1-2 da ys
[2022-10-17] MEDS: INSULIN -REGULAR HUMAN 50 UNIT/0.5 ML ML SQ SCH ×4 (07:30→22:10)
[2022-10-17] MEDS: AZITHROMYCIN IV 500 MG in NA CHLORIDE 0.9% 250 ML IVPB SCH (08:46)
[2022-10-17] MEDS: CEFTRIAXONE 1,000 MG in NA CHLORIDE 0.9% 50 ML IVPB SCH (08:46)
[2022-10-17] MEDS: ENOXAPARIN 40 MG/0.4 ML SQ SCH (08:46)
[2022-10-17] MEDS: ASPIRIN EC 81 MG TAB PO SCH (08:47)
[2022-10-17] MEDS: FUROSEMIDE 20 MG/ 2ML VIAL IV SCH ×2 (08:50→17:03)
--- NOTE | 2022-10-17 09:36 | RAD REPORT ---
EXAM DESCRIPTION: US - Renal Ultrasound-Complete - 10/17/2022 8:43 am CLINICAL HISTORY: r/o obstruction/hydro; MARTELL, h/o BPH Flank pain COMPARISON: Abdomen Exam Limited dated 08/28/2021 FINDINGS: Both kidneys are normal in size, shape and echotexture. The right kidney measures 9.7 x 4.7 x 4.2 cm. No hydronephrosis, focal mass or perinephric fluid. The left kidney measures 9.8 x 5.5 x 4.8 cm. No hydronephrosis, focal mass or perinephric fluid. The urinary bladder is incompletely distended without gross abnormality seen. Significant prostate en largement projects into the bladder base. IMPRESSION: Unremarkable renal sonogram. Prostate gland is quite enlarged and projects into the bladder base.
--- NOTE | 2022-10-17 11:29 | CON ---
Date of Consultation: 10/17/2022 Reason For Consultation: Elevated BUN and creatinine, fluid management. History Of Present Illness: This is a pleasant 82-year-old gentleman with significant past medical h istory of diabetes complicated with neuropathy, no retinopathy, hypertension, CVA, benign prostate hy pertrophy, the patient came to the hospital complaining from cough and weakness and difficulty urinat ing. The patient had nocturia. The patient denied taking any nonsteroidal. No recent exposure to c ontrast. Upon arrival to the hospital, the patient found to have anemia and elevation in creatinine 1.3. For that reason, we have been consulted. Past Medical History: Includes; 1.Hypertension. 2.Diabetes complicated with neuropathy, no retinopathy. 3.Benign prostate hypertrophy. 4.Dementia. 5.Hyperlipidemia. 6.CVA. 7.CAD complicated with congestive heart failure, status post CABG and ICD placement back in 2019. Past Surgical History: Includes; 1.CABG. 2.ICD placement in 2019. Allergies: NO KNOWN DRUG ALLERGIES. Home Medications: Include aspirin, atorvastatin, cholecalciferol, melatonin, multivitamin, risperido ne, , glipizide, losartan, hydrochlorothiazide, meloxicam and metformin. Family History: Positive for hypertension. Social History: Denied smoking, denied alcohol, denied drugs abuse. Review of Systems: Head and Neck: No red eye. No ear pain. GI: No nausea. No vomiting. : Has polyuria, has nocturia, has hesitancy. Respiratory: Has cough. Has shortness of breath. Cardiovascular: No leg pain. No chest pain. No edema. Neuro: Has dementia. Musculoskeletal: Generalized weakness. Endocrine: No polydipsia. Physical Examination: Vital Signs: When I saw the patient; blood pressure 124/57, pulse of 71, afebrile. Chest: Clear to auscultation. Heart: S1, S2. Systolic murmur. Abdomen: Soft, nontender. Extremity: No edema. Neuro: Alert. No focality. Laboratory Data: Sodium 138, potassium 4.2, bicarb 22, BUN 31, creatinine 1.3, GFR of 55, calcium 8. 9. BNP 16,000. Chest x-ray; cardiomegaly with congestion. Hemoglobin 10.3. Urinalysis; specific g ravity of 1.007. Echocardiogram back in 2019, ejection fraction of 42%. Current Medications: In the hospital include ceftriaxone, azithromycin, Lovenox, Lasix 20 b.i.d. Assessment And Plan: 1.Acute kidney injury, multifactorial, secondary to cardiorenal, marginal, over volume without any m ajor respiratory distress, the patient on room air, superimposed with obstructive. Superimposed with ARB and nonsteroid use of meloxicam. The patient feeling well currently. I agree with holding the metformin, holding the losartan and hydrochlorothiazide. We will utilize blood pressure for more diu resing. Continue current dose of Lasix with the presence of anemia. I am going to go ahead to send for serum protein electrophoresis and anemia workup, and we will follow up the patient. 2.Hypertension, controlled, optimal with the presence of acute kidney injury. Hold ARB. Utilize bl ood pressure for more diuresis. Continue Lasix. 3.Hyponatremia secondary to dilutional. We will optimize fluid status. 4.Benign prostate hypertrophy. We will start the patient on Flomax. The patient is going to need f ollow up with Urology as outpatient. 5.Coronary artery disease with congestive heart failure with exacerbation. We will optimize fluid s tatus for the patient and we will follow up with primary. 6.Diabetes as by primary. Time spent examining the patient [id number], reviewing data, lab and radiology, placing orders, dis cussing the case with the patient, discussing the case with the steam table worker including nursing staff a nd hospitalist more than 75 minutes. QUINN Voice ID: [id number] Report ID: [id number]
--- NOTE | 2022-10-17 11:29 | PN ---
DICTATION ENDS HERE. QUINN Voice ID: [id number] Report ID: [id number]
[2022-10-17 12:22] LABS: UR PROTEIN 14.2 mg/dL (<11.9); Urine Protein/Creatinine Ratio 0.19 ratio (<0.15)
[2022-10-17] MEDS ORDERED: TAMSULOSIN 0.4 MG SR CAP PO SCH (21:00)
[2022-10-18] MEDS: ALBUTEROL 2.5 MG/3 ML NEB SOL NEB SCH ×3 (02:35→14:40)
[2022-10-18] MEDS: IPRATROPIUM BROM 0.5MG/2.5ML NEB SCH ×3 (02:35→14:40)
[2022-10-18 04:17] LABS: Absolute Lymphocytes (CBC) 1.8 K/uL (0.7-4.9); Hematocrit 29.2 % (39.6-49.0); Lymphocytes % 20.2 % (15.3-44.8); MCV 83.6 fL (80-100); MPV 8.5 fL (7.6-11.3); RBC Red Blood Cell Count 3.49 M/uL (4.33-5.43)
[2022-10-18 05:01] LABS: Albumin 3.4 g/dL (3.4-5.0); Ferritin 58.2 ng/mL (26-388); Phosphorus 4.1 mg/dL (2.5-4.9); Potassium 3.8 mEq/L (3.5-5.1); Thyroid Stimulating Hormone 3.48 uIU/mL (0.358-3.740)
--- NOTE | 2022-10-18 05:01 | EKG ---
Test Date: 2022-10-16 Test Time: 09:39:19 [employer] Mill Supervisor: REEMA MEASUREMENT RESULTS: Intervals: Rate: 103 TX: 216 QRSD: 86 QT: 328 QTc: 429 [place]: P: 63 TX: 216 QRS: 57 T: 141 INTERPRETIVE STATEMENTS: Sinus tachycardia with 1st degree AV block Anteroseptal infarct, age undetermined Abnormal ECG Compared to ECG 07/08/2022 16:39:43 First degree AV block now present Atrial-paced complex(es) or rhythm no longer present Myocardial infarct finding still present Electronically Signed On 10-18-22 04:55:04 CDT by Reinier Harper
--- NOTE | 2022-10-18 06:48 | ECHO ---
HEIGHT: 5 ft 9 in WEIGHT: 155 lb 0 oz DATE OF STUDY: 10/17/[address]: Eduard Moran 2-DIMENSIONAL: YES M.MODE: YES DOPPLER: YES COLOR FLOW: YES TDS: PORTABLE: YES DEFINITY: BUBBLE STUDY: DIAGNOSIS: RULE OUT CONGESTIVE HEART FAILURE CARDIAC HISTORY: CATHERIZATION: YES SURGERY: YES PROSTHETIC VALVE: PACEMAKER: YES MEASUREMENTS (cm) DIASTOLIC (NORMALS) SYSTOLIC (NORMALS) IVSd 0.7 (0.6-1.2) LA Diam 4.2 (1.9-4.0) LVEF 20-25% LVIDd 5.3 (3.5-5.7) LVIDs 4.3 (2.0-3.5) %FS % LVPWd 1.0 (0.6-1.2) Ao Diam 2.2 (2.0-3.7) 2 DIMENSIONAL ASSESSMENT: RIGHT ATRIUM: NORMAL LEFT ATRIUM: DILATED RIGHT VENTRICLE: PERMANENT PACEMAKER LEFT VENTRICLE: NORMAL SIZE TRICUSPID VALVE: NORMAL MITRAL VALVE: NORMAL PULMONIC VALVE: NORMAL AORTIC VALVE: NORMAL PERICARDIAL EFFUSION: NONE AORTIC ROOT: NORMAL LEFT VENTRICULAR WALL MOTION: SEVERE GLOBAL HYPOKINESIS DOPPLER/COLOR FLOW: MILD MITRAL REGURGITATION, TRICUSPID REGURGITATION. NORMAL RIGHT VENTRICULAR SYSTOLIC PRESSURE COMMENTS: 1. PERMANENT PACEMAKER RIGHT VENTRICULAR APEX 2. SEVERE GLOBAL HYPOKINESIS 3. NO EFFUSION 4. NO THROMBUS TECHNOLOGIST: GEORGE CHÁVEZ
--- NOTE | 2022-10-18 07:15 | P.PN ---
Date of Service: 10/18/22 Subjective: Feeling better this morning Breathing seems easier today no new / worsening problems ROS: 10 point ROS as noted above, otherwise negative Physical Exam: GEN: Alert, oriented x2, dementia HEENT: Normal conjunctiva, sclera anicteric CV: Regular rate and rhythm, no edema, +systolic murmur Pulm: Nonlabored respirations on room air, diminished at bases b/l ABD: Soft, nontender, nondistended MSK: No joint tenderness Neuro: Normal speech, normal affect vitals reviewed Problem List: acute hypoxemic respiratory failure secondary to CHF vs pneumonia Pneumonia, suspected Elevated BNP CKD 2 history of CVA/ CAD s/p CABG Presence of pacemaker Dementia Depression Hyperlipidemia NIDDM2 Hypertension Anemia of chronic disease BPH acute hypoxemic respiratory failure secondary to CHF vs pneumonia Pneumonia , suspected elevated BNP, possible CHF exacerbation CT imaging indicates Small layering bilateral pleural effusions. Dependent bilateral lower lobe ground-glass opacities, could be related to atelectasis or early airspace disease cotninue roceph/azithro empirically, nebs/atrovent O2 as needed pulm consulted BNP level at 5144, increased to 16k CT imaging indicates findings consistent with small bilateral pleural effusion last echo (2019): EF: 40-45%, mild globaly hypokinesis Echocardiogram EF: 20-25% continue lasix monitor UOP /renal function CKD 2 chronic urinary retention / BPH monitor renal function slightly worse 10/17 Nephrology consulted reportedly some vague urinary issues for several months uncertain, but suspects he has been told he has a large prostate in the recent past check renal u/s - (10/17) no hydro, noted enlarged prostate pre-/post- void residual check History of CVA\CABG - Continue aspirin and statin Presence of pacemaker - Telemetry to monitor for any malignant arrhythmia. Dementia - Continue home medications. Patient at his baseline mental status. Depression - Continue home medication Hyperlipidemia - Continue statin NIDDM2 - sliding scale insulin Hypertension - Poorly controlled. Continue home medications and hydralazine as needed. Anemia of chronic disease - H&H stable. We will continue to monitor hemoglobin and transfuse if less than 7.0. BPH - Continue home medication VTE: Lovenox Code: Full Dispo: back to facility he came from, ?half-way
[2022-10-18] MEDS: INSULIN -REGULAR HUMAN 50 UNIT/0.5 ML ML SQ SCH ×2 (07:30→12:14)
[2022-10-18] MEDS ORDERED: AZITHROMYCIN 250 MG TAB PO SCH (09:00)
[2022-10-18] MEDS ORDERED: POTASSIUM CL SA 10 MEQ TAB PO ONE (09:00)
[2022-10-18] MEDS: FUROSEMIDE 20 MG/ 2ML VIAL IV SCH (09:19)
[2022-10-18] MEDS: ASPIRIN EC 81 MG TAB PO SCH (09:19)
[2022-10-18] MEDS: ENOXAPARIN 40 MG/0.4 ML SQ SCH (09:19)
[2022-10-18 10:01] VITALS: O2SAT 98
--- NOTE | 2022-10-18 11:44 | P.DS ---
Admission Date: 10/16/22 Discharge Date: 10/18/22 Disposition: ROUTINE DISCHARGE Reason for Admission: SOB Consultations: Cardiology - Dr. aHrper Nephrology - Dr. Mcbride Pulmonology - Dr. Ruano Brief History of Present Illness: 82yo M, PMH: dementia, hyperlipidemia., DM2, hypertension, pacemaker, CVA, BPH, depression Patient presents with complaint of shortness of breath. Patient is a poor historian and unable to provide accurate history. Patient alert and oriented x2 with intermittent episodes of confusion noted. Patient reports associated signs and symptoms of cough, dizziness, nausea, fever and trouble urinating. Patient reported that he has been having trouble urinating for the past 3 months. Patient has a diagnosis of BPH. Patient denies any other signs or symptoms. Symptoms are aggravated or relieved by nothing. Patient decided to present to the hospital for medical evaluation. Of note, patient at his baseline mental status--intermittent episodes of confusion. Hospital Course: Problem List: acute hypoxemic respiratory failure secondary to systolic CHF (HFrEF) Pneumonia, ruled out CKD 2 history of CVA/ CAD s/p CABG Presence of pacemaker Dementia Depression Hyperlipidemia NIDDM2 Hypertension Anemia of chronic disease BPH Patient presented with shortness of breath. CT imaging indicates Small layering bilateral pleural effusion s. Dependent bilateral lower lobe ground-glass opacities". He was given empiric antibiotics, lasix, and nebulizers. Pulmonology was consulted. Echo showed 20-25% EF (down from 40% in 2020). Cardiology was consulted and recommended lasix 40mg daily and outpatient follow up. Antibiotics were later discontinued as this was felt to be due to CHF exacerbation and he did not have any other findings/signs of infection. Patient was also noted to have some vague urinary issues for several months. Ultrasound and post-void residuals were checked. Patient able to void ok, but was noted to have enlarged prostate. Started flomax and recommend urology follow up. He was noted to have a mild acute kidney injury which was felt to be due to cardiorenal/overvolume and possible mild obstructive component and improved with diuresis. His blood pressure was low-normal with addition of lasix and flomax, so his losartan and HCTZ were held. Nephrology was consulted and recommended follow up with urology for management of BPH. On day of discharge, patient was feeling almost back to his normal self, and his breathing was much better, comfortable on room air. Labs at baseline. Of note, he was mildly anemic, workup consistent with severe iron deficiency. Recommend daily iron supplementation. Follow up: PCP 3-5 days Cardiology within a few weeks Nephrology within a few weeks Urology for BPH within a few weeks Medications New: Furosemide, iron Hold: losartan / HCTZ for now restart losartan once blood pressure consistently elevated or after recommended by physician. Physical Exam: GEN: Alert, oriented x2, dementia HEENT: Normal conjunctiva, sclera anicteric CV: Regular rate and rhythm, no edema, +systolic murmur Pulm: Nonlabored respirations on room air, diminished at bases b/l ABD: Soft, nontender, nondistended MSK: No joint tenderness Neuro: Normal speech, normal affect Vital Signs/Physical Exam: Temp Pulse Resp BP Pulse Ox 97.2 F 69 18 124/58 L 95 10/18/22 04:00 10/18/22 04:00 10/18/22 04:00 10/18/22 04:00 10/18/22 04:00 Laboratory Data at Discharge: WBC 8.70 thou/uL (4.3-10.9) 10/18/22 03:49 Hgb 9.8 g/dL (13.6-17.9) L 10/18/22 03:49 Hct 29.2 % (39.6-49.0) L 10/18/22 03:49 Plt Count 196 thou/uL (152-406) 10/18/22 03:49 Sodium 139 mEq/L (136-145) 10/18/22 03:49 Potassium 3.8 mEq/L (3.5-5.1) 10/18/22 03:49 BUN 34 mg/dL (7-18) H 10/18/22 03:49 Creatinine 1.23 mg/dL (0.70-1.30) 10/18/22 03:49 Glucose 115 mg/dL (74-106) H 10/18/22 03:49 Phosphorus 4.1 mg/dL (2.5-4.9) 10/18/22 03:49 Magnesium 2.1 mg/dL (1.6-2.4) 10/17/22 03:09 Home Medications: Aspirin [Aspirin EC 81 MG] 1 tab PO DAILY 04/06/20 Atorvastatin Calcium 40 mg PO BEDTIME 04/06/20 Cholecalciferol (Vitamin D3) [Vitamin D3] 1 tab PO DAILY 04/06/20 Citalopram Hydrobromide [Citalopram HBr] 1 tab PO DAILY 04/06/20 Fluticasone [Flonase 50MCG Nasal [place]*] 1 puff IH BEDTIME 04/06/20 Melatonin 1 tab PO BEDTIME 04/06/20 risperiDONE [Risperdal] 2 mg PO BEDTIME 04/06/20 Docusate Sodium [Stool Softener] 100 mg PO DAILY 08/28/21 Donepezil [Aricept*] 5 mg PO DAILY 08/28/21 Glipizide [Glipizide ER] 5 mg PO BID 08/28/21 Loratadine [Claritin*] 10 mg PO DAILY 08/28/21 Metformin HCl 1,000 mg PO BID 08/28/21 carvediloL [Coreg*] 6.25 mg PO BID 08/28/21 Multivitamin [Daily Ericka] 1 tab PO DAILY 10/17/22 Sennosides [Senna] 2 tab PO BEDTIME 10/17/22 Ferrous Sulfate [Iron] 325 mg PO DAILY 30 Days #30 tab 10/18/22 Furosemide [Lasix] 40 mg PO DAILY 30 Days #30 tab 10/18/22 Tamsulosin [Flomax*] 0.4 mg PO BEDTIME 30 Days #30 cap 10/18/22 New Medications: Tamsulosin [Flomax*] 0.4 mg PO BEDTIME 30 Days #30 cap Ferrous Sulfate [Iron] 325 mg PO DAILY 30 Days #30 tab Furosemide [Lasix] 40 mg PO DAILY 30 Days #30 tab Physician Discharge Instructions: Patient presented with shortness of breath. CT imaging indicates Small layering bilateral pleural effusions. Dependent bilateral lower lobe ground-glass opacities". He was given empiric antibiotics, lasix, and nebulizers. Pulmonology was consulted. Echo showed 20-25% EF (down from 40% in 2019). Cardiology was consulted and recommended lasix 40mg daily and outpatient follow up. Antibiotics were later discontinued as this was felt to be due to CHF exacerbation and he did not have any other findings/signs of infection. Patient was also noted to have some vague urinary issues for several months. Ultrasound and post-void residuals were checked. Patient able to void ok, but was noted to have enlarged prostate. Started flomax and recommend urology follow up. He was noted to have a mild acute kidney injury which was felt to be due to cardiorenal/overvolume and possible mild obstructive component and improved with diuresis. His blood pressure was low-normal with addition of lasix and flomax, so his losartan and HCTZ were held. Nephrology was consulted and recommended follow up with urology for management of BPH. On day of discharge, patient was feeling almost back to his normal self, and his breathing was much better, comfortable on room air. Labs at baseline. Of note, he was mildly anemic, workup consistent with severe iron deficiency. Recommend daily iron supplementation. Follow up: PCP 3-5 days Cardiology within a few weeks Nephrology within a few weeks Urology for BPH within a few weeks Medications New: Furosemide, iron, flomax Hold: losartan / HCTZ for now restart losartan once blood pressure consistently elevated or after recommended by physician. Followup: NONE,NONE [Primary Care Provider] - 1 Week (Call for appointment. ) Time spent managing pt's care (in minutes): 45
--- NOTE | 2022-10-18 13:25 | PN ---
Date of Progress Note: 10/18/2022 Subjective: The patient was admitted to the hospital with acute kidney injury secondary to cardiorenal, obstructive uropathy, superimposed with nonsteroidal use and ARB. The patient on the recovery. The patient on room air. Physical Examination: Vital Signs: When I saw the patient; blood pressure 124/58, pulse of 69. Chest: Clear to auscultation. Heart: S1, S2. Regular. Abdomen: Soft, nontender. Extremity: No edema. Neurologic: Alert. Pleasantly confused. Laboratory Data: Hemoglobin 9.8. Sodium 139, potassium 3.8, bicarb 24, BUN 34, creatinine 1.2, GFR of 59, calcium 8.8, phosphorus 4.1. Iron saturation 6.9, ferritin of 58. PTH 47, TSH 3.4, PC ratio 0.1. Renal ultrasound; normal size kidney 9.7/9.8 with large prostate. Current Medications: The patient on include; 1. Lovenox. 2. Flomax. 3. Breathing treatment. 4. Aspirin. 5. Lasix 20 b.i.d. 6. Zofran. Assessment And Plan: 1. Acute kidney injury on chronic kidney disease, stable, status post acute kidney injury secondary to cardiorenal with over volume, congestive heart failure exacerbation, superimposed with obstructive uropathy and ARB, SHELBY presentation because of use of meloxicam. The patient currently normal volume. I am going to go ahead and discontinue Lasix IV, place the patient on Lasix oral 40 mg daily, and we will continue to monitor. 2. Chronic kidney disease, multifactorial, secondary to cardiorenal syndrome/SHELBY secondary to nonsteroidal use, Mobic, status post acute kidney injury as above. 3. Iron deficiency anemia. I am going to go ahead and start the patient on IV iron. 4. Congestive heart failure with exacerbation, currently normal volume. Switch the patient to Lasix oral. 5. Obstructive uropathy. Continue Flomax. 6. Diabetes as by primary. The patient cleared from the Renal standpoint for discharge planning to follow up in the office 3-4 weeks. time spend exam the patient face to face reviewing data lab and radiology placing order , discussing with patient and nursing staff discussing with hospitalisit >35min NICKO/DARIAN Voice ID: [id number] Report ID: [id number] MTDD
[2022-10-18] MEDS ORDERED: SOD FERRIC GLUC COMPLX/SUCROSE 250 MG in NA CHLORIDE 0.9% 250 ML IV SCH (14:00)
[2022-10-18 14:48] VITALS: BP 132/91; TEMP 96.7
[2022-10-19] MEDS ORDERED: FUROSEMIDE 40 MG TABLET PO SCH (09:00)
== END 2022-10-18 16:00 | disposition home or self-care (01) | DRG 291 ==
LOC: ER 09:37 → ERHOLD 12:45 → 2ND 14:36
PROVIDERS: ADMIT Internal Medicine; ATTEND Hospitalist
DX: I13.0 Hypertensive heart and chronic kidney disease with heart failure and stage 1 through stage 4 chronic kidney disease, or unspecified chronic kidney disease (principal); I50.23 Acute on chronic systolic (congestive) heart failure; J96.01 Acute respiratory failure with hypoxia; F03.93 Unspecified dementia, unspecified severity, with mood disturbance; N17.9 Acute kidney failure, unspecified; E87.1 Hypo-osmolality and hyponatremia; N18.2 Chronic kidney disease, stage 2 (mild); E11.22 Type 2 diabetes mellitus with diabetic chronic kidney disease; D63.1 Anemia in chronic kidney disease; D63.8 Anemia in other chronic diseases classified elsewhere; D50.9 Iron deficiency anemia, unspecified; N13.9 Obstructive and reflux uropathy, unspecified; E78.00 Pure hypercholesterolemia, unspecified; I25.10 Atherosclerotic heart disease of native coronary artery without angina pectoris; N40.1 Benign prostatic hyperplasia with lower urinary tract symptoms; R33.8 Other retention of urine; Z95.0 Presence of cardiac pacemaker; Z95.1 Presence of aortocoronary bypass graft; Z79.84 Long term (current) use of oral hypoglycemic drugs; Z86.73 Personal history of transient ischemic attack (TIA), and cerebral infarction without residual deficits; Z79.02 Long term (current) use of antithrombotics/antiplatelets; Z79.82 Long term (current) use of aspirin; Z79.899 Other long term (current) drug therapy
CPT/HCPCS: 36415; 71045; 71250; 76770; 80048; 80069; 81003; 82550; 82570; 82607; 82728; 82947; 83540; 83605; 83735; 83880; 83970; 84100; 84156; 84439; 84443; 84466; 84484; 85025; 87040; 93005; 93306; 94640; 96374; 99285; J0696; J1650; J1815; J1940; J2916; J3475; J7050; J7613; J7614; J7644

== ENCOUNTER 2022-10-31 12:16 | Emergency (ER) | payer OTHER ==
--- NOTE | 2022-10-31 13:12 | RAD REPORT ---
EXAM DESCRIPTION: RAD - Chest Single View - 10/31/2022 1:00 pm CLINICAL HISTORY: DYSPNEA Chest pain. COMPARISON: Chest Single View dated 10/16/2022; Chest Single View dated 07/08/2022; Chest Single View dated 08/29/2021; Chest Single View dated 04/06/2020 FINDINGS: Portable technique limits examination quality. The lungs are grossly clear. The heart is normal in size. No displaced fractures.Sternotomy wires. Pa cer/defibrillator device present IMPRESSION: No acute intrathoracic process suspected.
[2022-10-31 13:52] LABS: Hematocrit 36.1 % (39.6-49.0); Lymphocytes % 20.4 % (15.3-44.8); MCV 85.4 fL (80-100); MPV 8.2 fL (7.6-11.3); RBC Red Blood Cell Count 4.22 M/uL (4.33-5.43)
[2022-10-31 14:03] LABS: Protime INR 1.1
[2022-10-31] MEDS ORDERED: NA CHLORIDE 0.9% 500 ML ONE (14:13)
[2022-10-31 14:20] LABS: Albumin 3.6 g/dL (3.4-5.0); Bilirubin Direct 0.3 mg/dL (0-0.2); Bilirubin Indirect, Calculated 0.6 mg/dL (0.2-0.8); Bilirubin Total 0.9 mg/dL (0.2-1.0); Magnesium 1.6 mg/dL (1.6-2.4); Potassium 3.9 mEq/L (3.5-5.1); Protein, Total 6.9 g/dL (6.4-8.2); Troponin High Sensitivity 20.9 pg/mL (<58.9)
[2022-10-31 14:36] LABS: SARS-CoV-2 Antigen Rapid Res Negative (Negative)
[2022-10-31 15:37] LABS: Specific Gravity 1.013 (1.005-1.030); Urine Bilirubin NEGATIVE (Negative); Urine Blood Negative (Negative); Urine Clarity Clear (Clear); Urine Color Light-Yellow (Yellow); Urine Glucose NEGATIVE (Negative); Urine Protein NEGATIVE (Negative); Urine Urobilinogen Normal (Normal); Urine pH 5.5 (5.0-7.0)
--- NOTE | 2022-10-31 16:05 | RAD REPORT ---
EXAM DESCRIPTION: CT - Head Brain Wo Cont - 10/31/2022 3:58 pm CLINICAL HISTORY: CONFUSED Headache, drowsiness COMPARISON: Head Brain Wo Cont dated 07/08/2022; Head Brain Wo Cont dated 01/08/2020 TECHNIQUE: All CT scans are performed using dose optimization technique as appropriate and may inclu de automated exposure control or mA/KV adjustment according to patient size. 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 The paranasal sinuses and mastoids are clear. The calvarium is intact. Heavy vertebral atherosclerosi s. IMPRESSION: No acute intracranial abnormality.
--- NOTE | 2022-10-31 16:07 | RAD REPORT ---
EXAM DESCRIPTION: CTAbdomen Pelvis W Contrast - 10/31/2022 3:59 pm CLINICAL HISTORY: Abdominal pain. elevated lipase COMPARISON: No comparisons TECHNIQUE: Biphasic CT imaging of the abdomen and pelvis was performed with 100 ml non-ionic IV cont rast. All CT scans are performed using dose optimization technique as appropriate and may include automated exposure control or mA/KV adjustment according to patient size. FINDINGS: The lung bases are clear.Pacemaker wires present. There is mild pneumobilia left lobe of the liver. Cholecystectomy clips. No solid liver masses. The s pleen, adrenal glands, pancreas and kidneys are within normal limits. No bowel obstruction, free air, free fluid or abscess. Aortoiliac atherosclerosis. Nonvisualized appe ndix. No evidence of significant lymphadenopathy. Significant prostate gland enlargement. No suspicious bony findings. IMPRESSION: Prostate gland is significantly enlarged.
--- NOTE | 2022-10-31 16:12 | EDPHYS ---
Physician Documentation [facility] Name: Omar Norris Age: 82 yrs Sex: Male : 1940 Arrival Date: 10/31/2022 Time: 12:16 Bed 20 Private MD: ED Physician Ángel Marie HPI: 10/31 12:32 This 82 yrs old Male presents to ER via EMS with complaints of Doesn't Feel Right. rn 12:32 [facility] for "not feeling right", unclear etiology or when it began. rn no fever. Noted to have fast resp rate, but patient does not complain of anything specific. No chest pain/abd pain/vomiting/diarrhea. NO headache. . Onset: The symptoms/episode began/occurred at an unknown time. Severity of symptoms: At their worst the symptoms were mild in the emergency department the symptoms are unchanged. The patient has not experienced similar symptoms in the past. The patient has not recently seen a physician. Historical: - Allergies: 12:29 No Known Allergies; aa5 - PMHx: 12:29 BPH; Dementia; depressive disorder; Hypercholesterolemia; Hypertension; Pacemaker; aa5 stroke; urine retention; pacemaker; Diabetes mellitus; - Immunization history:: Adult Immunizations unknown. - Family history:: not pertinent. - Social history:: Smoking status: Patient denies any tobacco usage or history of. - Hospitalizations: : No recent hospitalization is reported. ROS: 12:32 Constitutional: Negative for fever, chills, and weight loss, Eyes: Negative for injury, rn pain, redness, and discharge, Neck: Negative for injury, pain, and swelling, Cardiovascular: Negative for chest pain, palpitations, and edema, Respiratory: Negative for cough, wheezing, and pleuritic chest pain, Abdomen/GI: Negative for abdominal pain, nausea, vomiting, diarrhea, and constipation, Back: Negative for injury and pain, MS/Extremity: Negative for injury and deformity, Skin: Negative for injury, rash, and discoloration, Neuro: Negative for headache, numbness, tingling, and seizure. Exam: 12:32 Constitutional: This is a well developed, well nourished patient who is awake, alert, rn seems slightly agitated and tachypneic Head/Face: Normocephalic, atraumatic. ENT: dry MM Cardiovascular: Regular rate, irregular rhythm. No pulse deficits. Respiratory: + mild tachypnea, no retractions Abdomen/GI: Soft, non-tender Skin: Warm, dry MS/ Extremity: Pulses equal, no cyanosis. Neurovascular intact. Full, normal range of motion. Equal circumference. Neuro: Awake and alert, GCS 15, moves all 4 ext with equal strength, sensation intact. 14:55 ECG was reviewed by the Attending Physician. rn Vital Signs: 12:45 BP 128 / 56; Pulse 68; Resp 18; Temp 98.1; Pulse Ox 100% ; Weight 63.5 kg; Height 5 ft. db 9 in. ; 13:30 BP 122 / 70; Pulse 69; Resp 18; Pulse Ox 100% on R/A; db 14:14 BP 127 / 63; Pulse 67; Resp 20; Pulse Ox 100% on R/A; db 15:00 BP 127 / 77; Pulse 67; Resp 18; Pulse Ox 100% on R/A; db 16:00 BP 127 / 72; Pulse 66; Resp 18; Pulse Ox 100% on R/A; db 17:00 BP 142 / 86; Pulse 80; Resp 18; Pulse Ox 100% on R/A; db 12:45 Body Mass Index 20.67 (63.50 kg, 175.26 cm) db MDM: 12:26 Patient medically screened. rn 16:10 Differential Diagnosis altered mental status, sepsis, UTI, pneumonia, anxiety, rn dehydration, electrolyte problem. Data reviewed: vital signs, nurses notes, lab test result(s), radiologic studies, CT scan, plain films, and as a result, I will discharge patient. Care significantly affected by the following chronic conditions: dementia. Counseling: I had a detailed discussion with the patient and/or guardian regarding: the historical points, exam findings, and any diagnostic results supporting the discharge/admit diagnosis, lab results, radiology results, the need for outpatient follow up, to return to the emergency department if symptoms worsen or persist or if there are any questions or concerns that arise at home. Special discussion: I discussed with the patient/guardian in detail that at this point there is no indication for admission to the hospital. It is understood, however, that if the symptoms persist or worsen the patient needs to return immediately for re-evaluation. Based on the history and exam findings, there is no indication for further emergent testing or inpatient evaluation. I discussed with the patient/guardian the need to see the primary care provider for further evaluation of the symptoms. ED course: No acute findings in w/u except for dehydration. + prostate enlargement but able to urinate and no UTI. CT head/abdomen/pelvis neg. CXR without acute findings. Stable vitals, afebrile. Will dc home with return precautions.. 10/31 12:30 Order name: BMP; Complete Time: 15:12 rn 10/31 12:30 Order name: Blood Culture Adult (2) rn 10/31 12:30 Order name: CBC with Diff; Complete Time: 15:12 10/31 12:30 Order name: CPK; Complete Time: 15:12 10/31 12:30 Order name: Hepatic Function; Complete Time: 15:12 10/31 12:30 Order name: Lipase; Complete Time: 15:12 10/31 12:30 Order name: Magnesium; Complete Time: 15:12 10/31 12:30 Order name: NT PRO-BNP; Complete Time: 15:12 10/31 12:30 Order name: PT-INR; Complete Time: 15:12 10/31 12:30 Order name: Ptt, Activated; Complete Time: 15:12 10/31 12:30 Order name: Troponin HS; Complete Time: 15:12 10/31 12:30 Order name: SARS RAPID; Complete Time: 15:12 10/31 12:30 Order name: Flu; Complete Time: 15:12 10/31 12:30 Order name: Urinalysis w/ reflexes; Complete Time: 15:43 rn 10/31 12:30 Order name: XRAY CXR (1 view); Complete Time: 13:19 rn 10/31 15:13 Order name: CT Head Brain wo Cont; Complete Time: 16:09 rn 10/31 15:13 Order name: CT Abd/Pelvis - IV Contrast Only; Complete Time: 16:09 rn 10/31 12:30 Order name: EKG; Complete Time: 12:31 rn 10/31 12:30 Order name: Cardiac monitoring; Complete Time: 13:32 rn 10/31 12:30 Order name: EKG - Nurse/Tech; Complete Time: 13:32 rn 10/31 12:30 Order name: IV Saline Lock; Complete Time: 13:32 rn 10/31 12:30 Order name: Labs collected and sent; Complete Time: 13:32 rn 10/31 12:30 Order name: O2 Per Protocol; Complete Time: 13:32 rn 10/31 12:30 Order name: O2 Sat Monitoring; Complete Time: 13:32 rn EC:55 Rate is 63 beats/min. NM interval is prolonged. QRS interval is normal. QT interval is rn normal. No Q waves. T waves are Normal. No ST changes noted. Clinical impression: Paced rhythm. Interpreted by me. Reviewed by me. Administered Medications: 14:08 Drug: NS 0.9% IV 500 ml Route: IV; Rate: bolus; Site: left antecubital; db 17:13 Follow up: Response: No adverse reaction; IV Status: Completed infusion; IV Intake: db 500ml Point of Care Testing: Blood Glucose: 17:16 Blood Glucose: 222 mg/dL; db Ranges: Critical Glucose Levels:Adult <50 mg/dl or >400 mg/dl <40 mg/dl or >180 mg/dl Disposition Summary: 10/31/22 16:11 Discharge Ordered Location: Home rn Problem: new rn Symptoms: have improved rn Condition: Stable rn Diagnosis - Dehydration rn Followup: rn - With: Private Physician - When: As needed - Reason: Recheck today's complaints, Re-evaluation by your physician Discharge Instructions: - Discharge Summary Sheet rn - Dehydration, Elderly rn Forms: - Medication Reconciliation Form rn - Thank You Letter rn - Antibiotic bottom turner - Prescription Opioid Use rn Signatures: Dispatcher [employer] EDÁngel Aguilar MD MD rn Calderon, Audri RN RN aaLeanna Llanes RN RN db Corrections: (The following items were deleted from the chart) 12:30 12:29 PMHx: Diabetes - IDDM; radha aa5
--- NOTE | 2022-10-31 16:12 | ER ---
Nurse's Notes [facility] Name: Omar Norris Age: 82 yrs Sex: Male : 1940 Arrival Date: 10/31/2022 Time: 12:16 Bed 20 Private MD: Diagnosis: Dehydration Presentation: 10/31 12:25 Chief complaint: EMS states: from [facility] assisted [facility] and c/o not feeling well.aa5 12:25 Coronavirus screen: At this time, the client does not indicate any symptoms associated aa5 with coronavirus-19. Ebola Screen: Patient denies travel to an Ebola-affected area in the 21 days before illness onset. Risk Assessment: Do you want to hurt yourself or someone else? Unable to obtain. Onset of symptoms was October 31, 2022. 12:25 Acuity: TANIA 3 aa5 12:25 Method Of Arrival: EMS: [facility] aa5 12:45 Initial Sepsis Screen: Does the patient meet any 2 criteria? Altered Mental Status. No. db Patient's initial sepsis screen is negative. Does the patient have a suspected source of infection? No. Patient's initial sepsis screen is negative. Triage Assessment: 12:46 General: Appears in no apparent distress. comfortable, Behavior is calm, cooperative. db Pain: Denies pain. Historical: - Allergies: 12:29 No Known Allergies; aa5 - PMHx: 12:29 BPH; Dementia; depressive disorder; Hypercholesterolemia; Hypertension; Pacemaker; aa5 stroke; urine retention; pacemaker; Diabetes mellitus; - Immunization history:: Adult Immunizations unknown. - Family history:: not pertinent. - Social history:: Smoking status: Patient denies any tobacco usage or history of. - Hospitalizations: : No recent hospitalization is reported. Screenin:17 [facility] ED Fall Risk Assessment (Adult) History of falling in the last 3 months, db including since admission No falls in past 3 months (0 pts) Confusion or Disorientation No (0 pts) Intoxicated or Sedated No (0 pts) Impaired Gait No (0 pts) Mobility Assist Device Used No (0 pt) Altered Elimination No (0 pt) Score/Fall Risk Level 0 - 2 = Low Risk Oriented to surroundings, Maintained a safe environment. Abuse screen: Denies threats or abuse. Denies injuries from another. Nutritional screening: No deficits noted. Tuberculosis screening: No symptoms or risk factors identified. Assessment: 14:17 Reassessment: Patient appears in no apparent distress at this time. Patient and/or db family updated on plan of care and expected duration. Pain level reassessed. Patient is alert, oriented x 3, equal unlabored respirations, skin warm/dry/pink. General: Appears in no apparent distress. comfortable, Behavior is calm, cooperative. Neuro: Level of Consciousness is awake, alert, obeys commands, Oriented to person, place, time, situation. Respiratory: Airway is patent Respiratory effort is even, unlabored, Respiratory pattern is regular, symmetrical. 14:20 Reassessment: Please contact diaz Norris [phone] for updates. db 17:11 Reassessment: Patient appears in no apparent distress at this time. Patient and/or db family updated on plan of care and expected duration. Pain level reassessed. Patient is alert, oriented x 3, equal unlabored respirations, skin warm/dry/pink. Patient states feeling better. Patient states symptoms have improved. Neuro: No deficits noted. Level of Consciousness is awake, alert, obeys commands, Oriented to person, place, time, situation. 17:12 Reassessment: report given to [facility] staff. db 17:39 Reassessment: Patient appears in no apparent distress at this time. Patient and/or db family updated on plan of care and expected duration. Pain level reassessed. Patient is alert, oriented x 3, equal unlabored respirations, skin warm/dry/pink. Vital Signs: 12:45 BP 128 / 56; Pulse 68; Resp 18; Temp 98.1; Pulse Ox 100% ; Weight 63.5 kg; Height 5 ft. db 9 in. ; 13:30 BP 122 / 70; Pulse 69; Resp 18; Pulse Ox 100% on R/A; db 14:14 BP 127 / 63; Pulse 67; Resp 20; Pulse Ox 100% on R/A; db 15:00 BP 127 / 77; Pulse 67; Resp 18; Pulse Ox 100% on R/A; db 16:00 BP 127 / 72; Pulse 66; Resp 18; Pulse Ox 100% on R/A; db 17:00 BP 142 / 86; Pulse 80; Resp 18; Pulse Ox 100% on R/A; db 12:45 Body Mass Index 20.67 (63.50 kg, 175.26 cm) db Vitals: 15:00 Cardiac Rhythm Assessment Paced. db ED Course: 12:25 Patient arrived in ED. aa5 12:26 Ángel Marie MD is Attending Physician. rn 12:26 Arm band placed on. aa5 12:29 Triage completed. aa5 12:39 Leanna Morales, RN is Primary Nurse. db 12:46 Patient placed in an exam room. db 13:02 XRAY CXR (1 view) In Process Unspecified. EDMS 13:19 EKG done, by ED staff. tm3 13:30 Maintain EMS IV. Dressing intact. Site clean \T\ dry. Gauge \T\ site: left ac 20G. Flushed. db 16:00 CT Head Brain wo Cont In Process Unspecified. EDMS 16:01 CT Abd/Pelvis - IV Contrast Only In Process Unspecified. EDMS 17:12 Patient has correct armband on for positive identification. Placed in gown. Bed in low db position. Call light in reach. Side rails up X2. Client placed on continuous cardiac and pulse oximetry monitoring. NIBP monitoring applied. Warm blanket given. 17:38 No provider procedures requiring assistance completed. IV discontinued, intact, db bleeding controlled, No redness/swelling at site. Administered Medications: 14:08 Drug: NS 0.9% IV 500 ml Route: IV; Rate: bolus; Site: left antecubital; db 17:13 Follow up: Response: No adverse reaction; IV Status: Completed infusion; IV Intake: db 500ml Medication: 17:39 VIS not applicable for this client. db Point of Care Testing: Blood Glucose: 17:16 Blood Glucose: 222 mg/dL; db Ranges: Intake: 17:13 IV: 500ml; Total: 500ml. db Outcome: 16:11 Discharge ordered by . rn 17:36 Patient left the ED. db 17:37 Discharged to home ambulatory, with assisted Living db 17:37 Condition: stable 17:37 Discharge instructions given to Assisted living Instructed on discharge instructions, follow up and referral plans. Signatures: Dispatcher [employer] EDMS Lino Garcia tm3 Ángel Marie MD MD rn Calderon, Audri, RN RN aa5 Leanna Morales, RN RN db Corrections: (The following items were deleted from the chart) 12:30 12:29 PMHx: Diabetes - IDDM; aa5 aa5
[2022-10-31 18:10] VITALS: TEMP 98.1; O2SAT 100
[2022-10-31 18:16] VITALS: BP 142/86
--- NOTE | 2022-11-01 07:17 | EKG ---
Test Date: 2022-10-31 Test Time: 13:16:58 Assistant Branch Manager: TM MEASUREMENT RESULTS: Intervals: Rate: 63 OH: 210 QRSD: 94 QT: 422 QTc: 431 [place]: P: [place]: 210 QRS: 79 T: 171 INTERPRETIVE STATEMENTS: Atrial-paced rhythm with prolonged AV conduction with frequent premature ventricular complexes Anterolateral infarct, age undetermined ST & T wave abnormality, consider inferior ischemia Abnormal ECG Compared to ECG 10/16/2022 09:39:19 Ventricular premature complex(es) now present ST (T wave) deviation now present Possible ischemia now present Sinus tachycardia no longer present First degree AV block no longer present Myocardial infarct finding still present Electronically Signed On 11-01-22 07:14:05 CDT by Reinier Harper
== END 2022-10-31 17:36 | disposition home or self-care (01) ==
LOC: ER 12:16
DX: E86.0 Dehydration (principal); I10 Essential (primary) hypertension; E78.00 Pure hypercholesterolemia, unspecified; E11.9 Type 2 diabetes mellitus without complications; F03.90 Unspecified dementia, unspecified severity, without behavioral disturbance, psychotic disturbance, mood disturbance, and anxiety; Z95.0 Presence of cardiac pacemaker; Z20.822 Contact with and (suspected) exposure to COVID-19
CPT/HCPCS: 96361; 93005; 87040 ×2; 85025; 80048; 36415; 83735; 82550; 85610; 80076; 85730; 81003; 84484; 83690; 83880; 87804 ×2; 70450; 74177; 71045; 96360; 99284; 87811; Q9967; J7040

== ENCOUNTER 2022-11-09 16:01 | Emergency (ER) | payer OTHER ==
--- NOTE | 2022-11-09 16:28 | RAD REPORT ---
EXAM DESCRIPTION: CT - [id number] - 11/09/2022 4:16 pm CLINICAL HISTORY: Trauma, head and neck injury. TRAUMA COMPARISON: Head C Spine Mpr Wo Con dated 04/06/2020; Neck Angio dated 12/08/2019 TECHNIQUE: Axial 5 mm thick images of the head were obtained. Axial 2 mm thick images of the cervical spine were obtained with sagittal and coronal reconstruction images generated and reviewed. All CT scans are performed using dose optimization technique as appropriate and may include automated exposure control or mA/KV adjustment according to patient size. FINDINGS: CT HEAD WITHOUT CONTRAST: No acute hemorrhage, hydrocephalus or extra-axial collection is identified.Areas of gliosis noted lef t temporoparietal region likely related to old infarction. The paranasal sinuses and mastoids are clear.The calvarium is intact. Heavy vertebral atherosclerosis . CT CERVICAL SPINE WITHOUT CONTRAST: No fracture or subluxation.Moderately severe multilevel degenerative changes throughout the cervical spine. Postoperative changes of laminectomy noted C3-C4.No prevertebral soft tissues swelling is iden tified. IMPRESSION: No acute intracranial or cervical spine findings. Moderate cervical degenerative changes.
--- NOTE | 2022-11-09 17:26 | EDPHYS ---
Physician Documentation [facility] Name: Omar Norris Age: 82 yrs Sex: Male : 1940 Arrival Date: 11/09/2022 Time: 16:01 Bed 7 Private MD: ED Physician Mitul Cohen HPI: 11/09 16:06 This 82 yrs old Male presents to ER via Unassigned with complaints of Fall, head sp3 injury, abrasions. 16:06 82-year-old male with PMH below and not on any anticoagulants or antiplatelet agents sp3 presents to the ED with mechanical ground-level fall while in the bathroom when his feet got tangled at the [employer]. Patient did not lose consciousness and remembers the entire event. He currently states he has no complaints and denies headache, neck pain, shortness of breath, chest pain, extremity pain, or any other signs or symptoms on ROS at this time. He has mild abrasions to his right temporal area and right upper extremity.. - Immunization history:: Adult Immunizations up to date. - Social history:: Smoking status: unknown. ROS: 16:07 Constitutional: Negative for fever, chills, and weight loss, Eyes: Negative for injury, sp3 pain, redness, and discharge, ENT: Negative for injury, pain, and discharge, Neck: Negative for injury, pain, and swelling, Cardiovascular: Negative for chest pain, palpitations, and edema, Respiratory: Negative for shortness of breath, cough, wheezing, and pleuritic chest pain, Abdomen/GI: Negative for abdominal pain, nausea, vomiting, diarrhea, and constipation, Back: Negative for injury and pain, Skin: Negative for injury, rash, and discoloration, Neuro: Negative for headache, weakness, numbness, tingling, and seizure, Psych: Negative for depression, anxiety, suicide ideation, homicidal ideation, and hallucinations, Allergy/Immunology: Negative for hives, rash, and allergies, Endocrine: Negative for neck swelling, polydipsia, polyuria, polyphagia, and marked weight changes, Hematologic/Lymphatic: Negative for swollen nodes, abnormal bleeding, and unusual bruising. Exam: 16:07 Constitutional: This is a well developed, well nourished patient who is awake, alert, sp3 and in no acute distress. Eyes: Pupils equal round and reactive to light, extra-ocular motions intact. Lids and lashes normal. Conjunctiva and sclera are non-icteric and not injected. Cornea within normal limits. Periorbital areas with no swelling, redness, or edema. ENT: Nares patent. No nasal discharge, no septal abnormalities noted. External auditory canals are clear. Oropharynx with no redness, swelling, or masses, exudates, or evidence of obstruction, uvula midline. Mucous membranes moist. Neck: Trachea midline, no thyromegaly or masses palpated, and no cervical lymphadenopathy. Supple, full range of motion without nuchal rigidity, or vertebral point tenderness. No Meningismus. Chest/axilla: Normal chest wall appearance and motion. Nontender with no deformity. No lesions are appreciated. Cardiovascular: Regular rate and rhythm with a normal S1 and S2. No gallops, murmurs, or rubs. Normal PMI, no JVD. No pulse deficits. Respiratory: Lungs have equal breath sounds bilaterally, clear to auscultation and percussion. No rales, rhonchi or wheezes noted. No increased work of breathing, no retractions or nasal flaring. Abdomen/GI: Soft, non-tender, with normal bowel sounds. No distension or tympany. No guarding or rebound. No evidence of tenderness throughout. Back: No spinal tenderness. No costovertebral tenderness. Full range of motion. Skin: Warm, dry with normal turgor. Normal color with no rashes, no lesions, and no evidence of cellulitis. Neuro: Awake and alert, GCS 15, oriented to person, place, time, and situation. Cranial nerves II-XII grossly intact. Motor strength 5/5 in all extremities. Sensory grossly intact. Cerebellar exam normal. Normal gait. Psych: Awake, alert, with orientation to person, place and time. Behavior, mood, and affect are within normal limits. 16:07 Head/face: Mild 1 cm x 2 cm abrasion to the right taoism area just lateral to the eye. There is no laceration present.. 16:07 Musculoskeletal/extremity: Patient with 2 cm x 2 cm laceration on the right upper extremity on the lateral epicondyle area. Elbow joint is normal and neurovascular exam is normal throughout.. Vital Signs: 16:09 BP 115 / 72; Pulse 16; Resp 98; Temp 97.7; Pulse Ox 99% on R/A; Pain 0/10; sc3 16:14 BP 115 / 72; Pulse 59; Resp 14; Pulse Ox 99% on R/A; Pain 0/10; sc3 17:50 BP 130 / 72; Pulse 69; Resp 16; Temp 98.1; Pulse Ox 96% on R/A; Pain 0/10; sc3 16:09 Pain Scale: Adult sc3 16:14 Pain Scale: Adult sc3 17:50 Pain Scale: Adult sc3 MDM: 16:08 Data reviewed: vital signs, nurses notes, EMS record, radiologic studies. ED course: sp3 82-year-old male with mechanical fall with no LOC and very mild injuries. Will obtain CT scan of the head and C-spine and chest x-ray and safely discharge patient home if negative. I am not highly suspicious for any significant injury, fracture, ICH or any other traumatic findings. I also do not believe the fall was a result of the medical prodrome including syncope, TIA/CVA spectrum, ACS, vascular pathology including aortic aneurysm or dissection, sepsis, shock, hypoglycemia or any other medical process at this time. Neurological exam is normal and patient is alert and oriented. We will safely discharge patient home if work-up is negative.. 17:24 ED course: Chest x-ray reviewed by me and demonstrates no traumatic abnormality. CT sp3 scans of the C-spine and head are normal. We will safely discharge patient home at this time with general fall precautions.. 17:25 Patient medically screened. sp3 11/09 16:05 Order name: CT Head C Spine; Complete Time: 16:42 sp3 11/09 16:05 Order name: XRAY Chest (1 view) sp3 11/09 16:05 Order name: Dressing - Wound; Complete Time: 16:09 sp3 Administered Medications: No medications were administered Disposition Summary: 11/09/22 17:25 Discharge Ordered Location: Home sp3 Condition: Stable sp3 Diagnosis - Mechanical fall, closed head injury, abrasions to the face and right upper extremitysp3 Followup: sp3 - With: Private Physician - When: Upon discharge from the Emergency Department - Reason: Continuance of care Discharge Instructions: - Discharge Summary Sheet sp3 - Fall Prevention in Hospitals, Adult sp3 Forms: - Medication Reconciliation Form sp3 - Thank You Letter sp3 - Antibiotic Education sp3 - Prescription Opioid Use sp3 Signatures: Dispatcher [employer] Jessica Ram RN RN iw Mitul Cohen MD MD sp3 Mehdi Snowden RN RN sc3 Corrections: (The following items were deleted from the chart) 16:12 16:12 PMHx: Hypertension; sc3 sc3 16:12 16:12 PMHx: Pacemaker; sc3 sc3 16:12 16:12 PMHx: stroke; sc3 sc3 16:12 16:12 PMHx: Dementia; sc3 sc3 16:12 16:12 PMHx: Hypercholesterolemia; sc3 sc3 16:12 16:12 PMHx: depressive disorder; sc3 sc3 16:12 16:12 PMHx: BPH; sc3 sc3 16:12 16:12 PMHx: urine retention; sc3 sc3 16:12 16:12 PMHx: Pacemaker; sc3 sc3 16:12 16:12 PMHx: diabetes mellitus; sc3 sc3
--- NOTE | 2022-11-09 17:26 | ER ---
Nurse's Notes [facility] Name: Omar Norris Age: 82 yrs Sex: Male : 1940 Arrival Date: 11/09/2022 Time: 16:01 Bed 7 Private MD: Diagnosis: Mechanical fall, closed head injury, abrasions to the face and right upper extremity Presentation: 11/09 16:09 Chief complaint: EMS states: [facility]. Coronavirus screen: Client denies travel out of the [facility] [place] in the last 14 days. At this time, the client does not indicate any symptoms associated with coronavirus-19. Ebola Screen: No symptoms or risks identified at this time. Initial Sepsis Screen: Does the patient meet any 2 criteria? Altered Mental Status. Yes Does the patient have a suspected source of infection? No. Patient's initial sepsis screen is negative. Risk Assessment: Do you want to hurt yourself or someone else? Patient reports no desire to harm self or others. Onset of symptoms was November 09, 2022. 16:09 Method Of Arrival: EMS: [place] [id number] 16:09 Acuity: TANIA 3 [facility] Triage Assessment: 16:12 General: Appears in no apparent distress. Behavior is calm, cooperative, appropriate [facility] for age, Denies fever, feeling ill, fatigue, chills. Pain: Denies pain. EENT: No deficits noted. No signs and/or symptoms were reported regarding the EENT system. Neuro: No deficits noted. Cardiovascular: No deficits noted. Respiratory: No deficits noted. GI: No deficits noted. No signs and/or symptoms were reported involving the gastrointestinal system. : No deficits noted. No signs and/or symptoms were reported regarding the genitourinary system. Derm: Skin is fragile, is thin, has skin tears on Right eyebrow, Right elbow. Musculoskeletal: No deficits noted. No signs and/or symptoms reported regarding the musculoskeletal system. Injury Description: skin tear to RLE elbow and Right eyebrow. - Immunization history:: Adult Immunizations up to date. - Social history:: Smoking status: unknown. Screenin:16 [facility] ED Fall Risk Assessment (Adult) History of falling in the last 3 months, [facility] including since admission Yes- single mechanical fall (1 pt) Confusion or Disorientation Yes (5 pts) Intoxicated or Sedated No (0 pts) Impaired Gait Yes (1 pt) Mobility Assist Device Used No (0 pt) Altered Elimination No (0 pt) Score/Fall Risk Level 3 or more points = High Risk Oriented to surroundings, Maintained a safe environment, Educated pt \T\ family on fall prevention, incl call for assistance when getting out of bed, Assessed \T\ reinforced patient's understanding of fall precautions, Hourly rounding (assess needs \T\ fall precautionary measures) done, Used ambulatory aids as needed (educated on \T\ assisted with), Implemented a Fall Risk Plan of Care, Apply high fall risk patient identification: yellow non skid footwear/ fall signage, Remained with patient while ambulating. Abuse screen: Denies threats or abuse. Nutritional screening: No deficits noted. Tuberculosis screening: No symptoms or risk factors identified. Assessment: 16:16 Reassessment: No changes from previously documented assessment. ut3 Vital Signs: 16:09 BP 115 / 72; Pulse 16; Resp 98; Temp 97.7; Pulse Ox 99% on R/A; Pain 0/10; sc3 16:14 BP 115 / 72; Pulse 59; Resp 14; Pulse Ox 99% on R/A; Pain 0/10; sc3 17:50 BP 130 / 72; Pulse 69; Resp 16; Temp 98.1; Pulse Ox 96% on R/A; Pain 0/10; sc3 16:09 Pain Scale: Adult sc3 16:14 Pain Scale: Adult sc3 17:50 Pain Scale: Adult ut3 Vitals: 17:50 Cardiac Rhythm Assessment Regular Paced. ut3 ED Course: 16:04 Patient arrived in ED. sp3 16:04 Mitul Cohen MD is Attending Physician. sp3 16:09 Mehdi Snowden, JARAD is Primary Nurse. sc3 16:12 Triage completed. sc3 16:15 Arm band placed on right wrist. Patient placed in the treatment room, on a stretcher. sc3 16:17 Dressings: Tegaderm X 2; right arm. Wound care: to skin tear located on right eye and sc3 right arm was cleaned with soap and water, dressed with telfa and tegaderm. 16:18 CT Head C Spine In Process Unspecified. EDMS 17:18 XRAY Chest (1 view) In Process Unspecified. EDMS 18:08 Patient has correct armband on for positive identification. iw 18:08 No provider procedures requiring assistance completed. Patient did not have IV access iw during this emergency room visit. Administered Medications: No medications were administered Medication: 16:16 VIS not applicable for this client. sc3 Outcome: 17:25 Discharge ordered by . sp3 18:08 Discharged to home via wheelchair, with family. iw 18:08 Condition: good 18:08 Discharge instructions given to patient, Instructed on discharge instructions, follow up and referral plans. Demonstrated understanding of instructions, follow-up care. 18:09 Patient left the ED. iw Signatures: Dispatcher [employer] EDJessica Linder RN RN iw Mitul Cohen MD MD sp3 Mehdi Snowden RN RN sc3 Corrections: (The following items were deleted from the chart) 16:12 16:12 PMHx: Hypertension; sc3 sc3 16:12 16:12 PMHx: Pacemaker; sc3 sc3 16:12 16:12 PMHx: stroke; sc3 sc3 16:12 16:12 PMHx: Dementia; sc3 sc3 16:12 16:12 PMHx: Hypercholesterolemia; sc3 sc3 16:12 16:12 PMHx: depressive disorder; sc3 sc3 16:12 16:12 PMHx: BPH; sc3 sc3 16:12 16:12 PMHx: urine retention; sc3 sc3 16:12 16:12 PMHx: Pacemaker; sc3 sc3 16:12 16:12 PMHx: diabetes mellitus; sc3 sc3
--- NOTE | 2022-11-09 17:44 | RAD REPORT ---
EXAM DESCRIPTION: RAD - Chest Single View - 11/09/2022 5:17 pm CLINICAL HISTORY: TRAUMA Chest pain. COMPARISON: Chest Single View dated 10/31/2022; Chest Single View dated 10/16/2022; Chest Single View d ated 07/08/2022; Chest Single View dated 08/29/2021 FINDINGS: Portable technique limits examination quality. The lungs are grossly clear. The heart is normal in size. No displaced fractures.Sternotomy wires pre sent. Dual lead pacer/ defibrillator device. IMPRESSION: No acute intrathoracic process suspected.
[2022-11-09 18:19] VITALS: BP 130/72; TEMP 98.1; O2SAT 96
== END 2022-11-09 18:09 | disposition home or self-care (01) ==
LOC: ER 16:01
DX: S09.90XA Unspecified injury of head, initial encounter (principal); S00.81XA Abrasion of other part of head, initial encounter; S50.311A Abrasion of right elbow, initial encounter; W18.30XA Fall on same level, unspecified, initial encounter
CPT/HCPCS: 70450; 71045; 72125; 99284

== ENCOUNTER 2022-11-28 09:51 | Emergency (ER) | payer OTHER ==
--- NOTE | 2022-11-28 10:32 | RAD REPORT ---
EXAM DESCRIPTION: CT - Head C Spine Mpr Wo Con - 11/28/2022 10:12 am CLINICAL HISTORY: Head and neck injury status post fall. Head and neck pain COMPARISON: October 2022 TECHNIQUE: Computed axial tomography of the head and cervical spine was obtained. Sagittal and coronal reconstruction was performed. All CT scans are performed using dose optimization technique as appropriate and may include automated exposure control or mA/KV adjustment according to patient size. FINDINGS: An intracranial bleed is not seen. The ventricles are normal in caliber. 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 Coarse vascular calcifications An extra-axial fluid collection is not noted. Fluid within the visualized sinuses and mastoids is not seen A cervical fracture is not visualized. No dislocation is noted. Postsurgical changes lumbar spine. Mild chronic posterior subluxation C3 on C4 and C4 on C5. Loss of normal lordosis cervical spine unchanged. Spondylosis IMPRESSION: No acute intracranial abnormality is seen. A cervical fracture is not visualized. If the patient continues to have symptoms to suggest intracranial /spinal cord pathology then MRI wou ld be recommended
--- NOTE | 2022-11-28 10:44 | RAD REPORT ---
EXAM DESCRIPTION: RAD - Hip Left 2 View - 11/28/2022 10:28 am CLINICAL HISTORY: Left hip pain status post injury FINDINGS: Intertrochanteric fracture left femur extending into the greater and lesser trochanters. F racture fragments 1 centimeter. No dislocation
--- NOTE | 2022-11-28 10:46 | RAD REPORT ---
EXAM DESCRIPTION: RAD - Knee Left 2 View - 11/28/2022 10:28 am CLINICAL HISTORY: Left knee pain status post injury FINDINGS: No fracture or dislocation is seen. Limited two view series obtained Left knee prosthesis in place
--- NOTE | 2022-11-28 10:49 | ER ---
Nurse's Notes [facility] Name: Omar Norris Age: 82 yrs Sex: Male : 1940 Arrival Date: 11/28/2022 Time: 09:51 Bed 19 Private MD: Diagnosis: Displaced intertrochanteric fracture of left femur, initial encounter for closed fracture;Fall on same level, unspecified Presentation: 11/28 09:53 Chief complaint: EMS states: pt is from [facility] where he had a mechanical fall kc6 while ambulating to the bathroom. denies LOC. reports L knee pain, BGL en route 153. Coronavirus screen: At this time, the client does not indicate any symptoms associated with coronavirus-19. Ebola Screen: No symptoms or risks identified at this time. Initial Sepsis Screen: Does the patient meet any 2 criteria? No. Patient's initial sepsis screen is negative. Does the patient have a suspected source of infection? No. Patient's initial sepsis screen is negative. Risk Assessment: Do you want to hurt yourself or someone else? Patient reports no desire to harm self or others. Onset of symptoms was November 28, 2022. 09:53 Method Of Arrival: EMS: [facility] kc6 09:53 Acuity: TANIA 4 kc6 Triage Assessment: 09:55 General: Appears uncomfortable, Behavior is appropriate for age. Pain: Complains of bp pain in left leg. EENT: No deficits noted. Neuro: No deficits noted. Musculoskeletal: Bony deformity noted of left hip. Historical: - Allergies: 09:55 No Known Allergies; kc6 - Immunization history:: Adult Immunizations up to date. - Social history:: Smoking status: Patient denies any tobacco usage or history of. Screenin:00 [facility] ED Fall Risk Assessment (Adult) History of falling in the last 3 months, bp including since admission No falls in past 3 months (0 pts). Abuse screen: Denies threats or abuse. Denies injuries from another. Nutritional screening: No deficits noted. Tuberculosis screening: No symptoms or risk factors identified. Assessment: 09:55 General: General: SEE TRIAGE NOTE. bp 12:00 Reassessment: No changes from previously documented assessment. Patient is alert, bp oriented x 3, equal unlabored respirations, skin warm/dry/pink. 12:29 Reassessment: DAUGHTER: BURTON (DAUGHTER)KRISTAL () [phone]. bp 12:48 Reassessment: REPORT TO PRISCILLA [facility]RA[facility]. bp 15:00 Reassessment: spoke with pts nurse from [facility], she was requesting an update on kc pts condition. informed her that pt was transferred to [facility] for left hip fracture. Vital Signs: 09:53 BP 143 / 71; Pulse 65; Resp 17 S; Temp 98; Pulse Ox 100% on R/A; bp 12:00 BP 148 / 91; Pulse 68; Resp 16; Pulse Ox 100% ; bp 12:48 BP 149 / 93; Pulse 82; Resp 15; Pulse Ox 100% ; bp ED Course: 09:52 Patient arrived in ED. bp 09:52 Hugo Mathias DO is Attending Physician. ms3 09:55 Triage completed. kc6 09:55 Arm band placed on. kc6 10:02 Good Gibbs, JARAD is Primary Nurse. bp 10:14 CT Head C Spine In Process Unspecified. EDMS 10:29 Knee Left 2 View In Process Unspecified. EDMS 10:30 Hip Left 2 View XRAY In Process Unspecified. EDMS 10:59 Inserted saline lock: 22 gauge in right forearm, using aseptic technique. Blood bp collected. 12:00 Patient has correct armband on for positive identification. Bed in low position. Call bp light in reach. Side rails up X2. 12:50 No provider procedures requiring assistance completed. Patient transferred, IV remains bp in place. Administered Medications: 13:12 Drug: morphine IVP or IV 4 mg Route: IVP; Infused Over: 4 mins; Site: right forearm; bp 13:12 Follow up: Response: No adverse reaction bp 13:12 Drug: Ondansetron IVP 4 mg Route: IVP; Site: right forearm; bp 13:12 Follow up: Response: No adverse reaction bp Medication: 12:50 VIS not applicable for this client. bp Outcome: 10:48 ER care complete, transfer ordered by . ms3 12:50 Transferred by ground EMS to [facility]. bp 12:50 Condition: stable 12:50 Instructed on the need for transfer. 13:12 Patient left the ED. bp Signatures: Dispatcher [employer] EDMS Bernie, Good, RN RN bp Hugo Mathias, DO DO ms3 Sophie Helton RN RN kc6 Corrections: (The following items were deleted from the chart) 12: 09:53 BP 143 / 71; Pulse 65bpm; Resp 17bpm; Spontaneous; Pulse Ox 100% RA; kc6 bp 12: 09:55 General: bp bp
--- NOTE | 2022-11-28 10:49 | EDPHYS ---
Physician Documentation [facility] [place] Name: Omar Norris Age: 82 yrs Sex: Male : 1940 Arrival Date: 11/28/2022 Time: 09:51 Bed 19 Private MD: ED Physician Hugo Mathias HPI: 11/28 10:04 This 82 yrs old Male presents to ER via EMS with complaints of Fall Injury. ms3 10:04 82-year-old male presents via [facility] status post fall. Patient states he was ms3 going to the bathroom and coming out and his knee gave out causing him to fall. Patient denies loss of consciousness. Patient states he is having moderate left knee pain. Patient states pain is worse with movement. Patient denies alleviating factors Historical: - Allergies: 09:55 No Known Allergies; kc6 - Immunization history:: Adult Immunizations up to date. - Social history:: Smoking status: Patient denies any tobacco usage or history of. ROS: 10:04 Constitutional: Negative for fever, and chills. Neck: Negative for injury, pain, and ms3 swelling, Cardiovascular: Negative for chest pain, and palpitations. Respiratory: Negative for shortness of breath, cough, wheezing, and pleuritic chest pain, Abdomen/GI: Negative for abdominal pain, nausea, vomiting, diarrhea, and constipation. 10:04 MS/extremity: Positive for pain, tenderness, of the Left knee. Exam: 10:04 Constitutional: This is a well developed, well nourished patient who is awake, alert, ms3 and in no acute distress. Head/Face: Normocephalic, atraumatic. Neck: Trachea midline, no cervical lymphadenopathy. Supple, full range of motion without nuchal rigidity, or vertebral point tenderness. No Meningismus. Chest/axilla: Normal chest wall appearance and motion. Nontender with no deformity. Cardiovascular: Regular rate and rhythm with a normal S1 and S2. No gallops, murmurs, or rubs. Normal PMI, no JVD. No pulse deficits. Respiratory: Lungs have equal breath sounds bilaterally, clear to auscultation and percussion. No rales, rhonchi or wheezes noted. No increased work of breathing, no retractions or nasal flaring. Abdomen/GI: Soft, non-tender, with normal bowel sounds. No distension or tympany. No guarding or rebound. No evidence of tenderness throughout. Skin: Warm, dry with normal turgor. Normal color with no rashes, no lesions, and no evidence of cellulitis. 10:04 Musculoskeletal/extremity: Extremities: noted in the Left hip: pain, tenderness, noted in the Left knee: no evidence of pain, swelling, tenderness. Vital Signs: 09:53 BP 143 / 71; Pulse 65; Resp 17 S; Temp 98; Pulse Ox 100% on R/A; bp 12:00 BP 148 / 91; Pulse 68; Resp 16; Pulse Ox 100% ; bp 12:48 BP 149 / 93; Pulse 82; Resp 15; Pulse Ox 100% ; bp MDM: 09:57 Patient medically screened. ms3 10:04 Differential diagnosis: Hip fracture vs Knee fracture. ms3 11:56 Data reviewed: vital signs, nurses notes, lab test result(s), radiologic studies, and ms3 as a result, I will transfer patient. Management of patient was discussed with the following: Switch Adjuster: Dr Bobby- Ortho- He will see patient.. Independent interpretation of the following test(s) in the Emergency Department X-Ray: My interpretation is Left hip x-ray reviewed by me shows intertrochanteric fracture. Historians other than the Patient: EMS: [facility]. Counseling: I had a detailed discussion with the patient and/or guardian regarding: the historical points, exam findings, and any diagnostic results supporting the discharge/admit diagnosis, lab results, radiology results, the need to transfer to another facility, [facility] does not immediately have the required specialist. ED course: Case discussed with Dr Bobby and he will see patient.. 12:10 Consideration of Admission/Observation Patient transferred due to [facility] not having ms3 orthopedic services. Management of patient was discussed with the following: Hospitalist: Dr Abbott. ED course: Discussed case with Dr Abbott and she accepts patient to [facility]. 11/28 10:51 Order name: CBC with Diff; Complete Time: 11:18 ms3 11/28 10:51 Order name: BMP; Complete Time: 11:38 ms3 11/28 09:58 Order name: CT Head C Spine; Complete Time: 10:46 ms3 11/28 09:58 Order name: Hip Left 2 View XRAY; Complete Time: 10:46 ms3 11/28 10:29 Order name: Knee Left 2 View; Complete Time: 10:46 EDMS Administered Medications: 13:12 Drug: morphine IVP or IV 4 mg Route: IVP; Infused Over: 4 mins; Site: right forearm; bp 13:12 Follow up: Response: No adverse reaction bp 13:12 Drug: Ondansetron IVP 4 mg Route: IVP; Site: right forearm; bp 13:12 Follow up: Response: No adverse reaction bp Disposition Summary: 11/28/22 10:48 Transfer Ordered Transfer Location: Other Acute Care Facility ms3 Reason: Higher level of care ms3 Condition: Stable ms3 Problem: new ms3 Symptoms: are unchanged ms3 Accepting Physician: (11/28/22 13:12) bp Diagnosis - Displaced intertrochanteric fracture of left femur, initial encounter for closed ms3 fracture - Fall on same level, unspecified ms3 Forms: - Medication Reconciliation Form ms3 - SBAR form ms3 Signatures: Dispatcher [employer] EDGood Issa, RN RN Hugo Brandt DO DO ms3 Sophie eHlton RN RN [id number] Corrections: (The following items were deleted from the chart) 10:29 09:59 Knee Left 3 View+RAD.RAD.BRMyles ordered. EDMS EDMS 13:12 10:48 ms3 bp
[2022-11-28 11:05] LABS: Hematocrit 37.7 % (39.6-49.0); Lymphocytes % 22.6 % (15.3-44.8); MCV 85.6 fL (80-100); MPV 7.9 fL (7.6-11.3)
[2022-11-28 11:06] LABS: Absolute Lymphocytes (CBC) 1.7 K/uL (0.7-4.9)
[2022-11-28] MEDS ORDERED: ONDANSETRON 4 MG/2 ML VIAL ONE (12:55)
[2022-11-28] MEDS ORDERED: MORPHINE 4 MG/ML SYR ONE (12:55)
[2022-11-28 13:59] VITALS: TEMP 98; O2SAT 100
[2022-11-28 14:13] VITALS: BP 149/93
== END 2022-11-28 13:12 ==
LOC: ER 09:51
DX: S72.142A Displaced intertrochanteric fracture of left femur, initial encounter for closed fracture (principal); W18.30XA Fall on same level, unspecified, initial encounter
CPT/HCPCS: 85025; 80048; 36415; 70450; 72125; 73502; 73560; 96375; 96374; 99285; J2405